=== PATIENT | male | born 1945 | race Caucasian/White ===

== ENCOUNTER 2019-03-06 21:34 | Inpatient (IN) | payer MEDICARE, OTHER ==
[~2019-03-06] VITALS: Ht 170.2 cm; Wt 84.9 kg
[2019-03-06] MEDS ORDERED: ALBUTEROL 0.083% (NEB) 2.5 MG/3 ML AMP HHN STA (21:37)
[2019-03-06] MEDS ORDERED: IPRATROPIUM (NEB) 0.5 MG/2.5 ML AMP INH ONE (22:00)
[2019-03-06] MEDS ORDERED: METHYLPREDNISOLONE 125 MG INJ IV ONE (22:00)
[2019-03-06] MEDS ORDERED: LORAZEPAM 2 MG INJ IV ONE (22:30)
[2019-03-06] MEDS: ASPIRIN 81 MG TAB PO ONE ×2 (23:16→23:45)
[2019-03-06] MEDS ORDERED: CEFTRIAXONE 1 GM/50 ML (PMX) 50 ML IVPB ONE (23:30)
[2019-03-06] MEDS ORDERED: NACL 0.9% 3 ML SYG IV SCH (23:30)
[2019-03-06] MEDS ORDERED: AZITHROMYCIN 500MG/NS (PMX) 250 ML IVPB ONE (23:30)
[2019-03-06] MEDS ORDERED: ACETAMINOPHEN 325 MG TAB PO PRN (23:30)
[2019-03-06] MEDS ORDERED: ONDANSETRON 4 MG INJ IV PRN (23:30)
--- NOTE | 2019-03-06 23:38 | ERD ---
ER Documentation Chief Complaint Chief Complaint SOB, 55% RA, COPD exacerbation HPI Patient is a 74-year-old male with COPD, hypertension, and diabetes who presents with shortness of breath. The patient was at [facility] and left AGAINST MEDICAL ADVICE last night. The patient was brought in by ambulance today for shortness of breath which started yesterday but worsened today. The patient has a history of COPD. Upon review of old medical records the patient one previous visit to the ER in 2008. The patient does have a primary doctor. The patient was hypoxic per paramedics at 55% upon arrival. He improved with oxygen and breathing treatment. ROS All systems reviewed and are negative except as per history of present illness. Allergies Allergies: Coded Allergies: No Known Allergy (Unverified , 03/06/19) PMhx/Soc Medical and Surgical Hx: pt denies Surgical Hx History of Surgery: No Anesthesia Reaction: No Hx Neurological Disorder: No Hx Respiratory Disorders: Yes (COPD) Hx Cardiac Disorders: Yes (HTN, HLD) Hx Psychiatric Problems: No Hx Miscellaneous Medical Probl: No Hx Alcohol Use: No Hx Substance Use: Yes Hx Tobacco Use: No Smoking Status: Current every day smoker FmHx Family History: diabetes Physical Exam Vitals Vital Signs Date Temp Pulse Resp B/P (MAP) Pulse Ox O2 O2 Flow FiO2 Time Delivery Rate 03/06/19 94 24 92 Nasal 2.0 21:55 Cannula 03/06/19 Non 3 21:47 Rebreather 03/06/19 Non 3.0 21:47 Rebreather 03/06/19 99.5 94 20 164/85 99 21:44 (111) Physical Exam Const: Moderate distress Head: Atraumatic Eyes: Normal Conjunctiva ENT: Normal External Ears, Nose and Mouth. Neck: Full range of motion. No meningismus. Resp: Diffuse wheezing Cardio: Regular rate and rhythm, no murmurs Abd: Soft, non tender, non distended. Normal bowel sounds Skin: No petechiae or rashes Back: No midline or flank tenderness Ext: No cyanosis, or edema Neur: Awake and alert Psych: Normal Mood and Affect Result Diagram: 03/06/19222003/06/192203 Results 24 hrs Laboratory Tests Test 03/06/19 22:01 03/06/19 22:04 03/06/19 22:21 POC Venous Lactate 1.5 mmol/L Sodium Level 140 mmol/L Potassium Level 4.8 mmol/L Chloride Level 96 mmol/L Carbon Dioxide Level 39 mmol/L Anion Gap 5 Blood Urea Nitrogen 27 mg/dl Creatinine 0.54 mg/dl Est Glomerular Filtrat Rate mL/min mL/min Glucose Level 291 mg/dl Calcium Level 8.8 mg/dl Troponin I 0.199 ng/ml White Blood Count 9.6 10^3/ul Red Blood Count 6.27 10^6/ul Hemoglobin 18.4 g/dl Hematocrit 60.4 % Mean Corpuscular Volume 96.3 fl Mean Corpuscular Hemoglobin 29.3 pg Mean Corpuscular 30.5 g/dl Hemoglobin Concent Red Cell Distribution Width 18.2 % Platelet Count 183 10^3/UL Mean Platelet Volume 10.4 fl Immature Granulocytes % 0.800 % Neutrophils % 73.7 % Lymphocytes % 16.5 % Monocytes % 6.6 % Eosinophils % 1.9 % Basophils % 0.5 % Nucleated Red Blood Cells % 0.3 /100WBC Immature Granulocytes # 0.080 10^3/ul Neutrophils # 7.1 10^3/ul Lymphocytes # 1.6 10^3/ul Monocytes # 0.6 10^3/ul Eosinophils # 0.2 10^3/ul Basophils # 0.1 10^3/ul Nucleated Red Blood Cells # 0.0 10^3/ul Current Medications Medications Dose Sig/Didi Start Time Status Last (Trade) Ordered Route PRN Stop Time Admin Dose Reason Admin 125 mg ONCE ONCE 03/06/19 DC 03/06/19 Methylprednis IV 22:00 22:06 olone Sodium 03/06/19 22:01 Succinate (Solu-Medrol) Albuterol 5 mg ONCE STAT 03/06/19 DC 03/06/19 (Proventil HHN 21:37 21:51 0.083% (Neb)) 03/06/19 21:38 Ipratropium 0.5 mg ONCE ONCE 03/06/19 DC 03/06/19 [place] INH 22:00 21:51 (Atrovent 03/06/19 22:01 0.02% (Neb)) Lorazepam 1 mg ONCE ONCE 03/06/19 DC 03/06/19 (Ativan) IV 22:30 22:27 03/06/19 22:31 Aspirin 162 mg ONCE ONCE 03/06/19 DC 03/06/19 (Aspirin) PO 23:00 23:16 03/06/19 23:01 Ceftriaxone 50 ml @ ONCE ONCE 03/06/19 Sodium 100 mls/hr IVPB 23:30 03/06/19 23:59 Azithromycin 250 ml @ ONCE ONCE 03/06/19 250 mls/hr IVPB 23:30 03/07/19 00:29 Ondansetron 4 mg ER BRIDGE 03/06/19 HCl (Zofran PRN IV 23:30 Inj) NAUSEA/VOMITI 03/07/19 23:29 NG 650 mg ER BRIDGE 03/06/19 Acetaminophen PRN PO 23:30 (Tylenol .MILD PAIN 03/07/19 23:29 Tab) 1-3 OR TEMP Procedures/MDM EKG read by me: Rate/Rhythm: Regular rate and rhythm at a normal rate Intervals: Normal Impression: No ST elevations Chest X-ray 1V Interpreted by me: Soft Tissue: No acute abnormalities Bones: No acute abnormalities Mediastinum/Cardiac Silhouette/Lungs: No obvious pneumonia or pneumothorax Smoking Cessation Therapy: Pt. was lectured for greater than 3 minutes on the health risks of continued smoking and the benefits of cessation. Patient is a 74-year-old male who presented with shortness of breath and hypoxia. The patient was given albuterol, Atrovent, Solu-Medrol, subtraction, and Zithromax for a presumed COPD exacerbation. I doubt pneumonia or sepsis. The patient was also found to have a positive troponin showing acute NSTEMI. The patient will be admitted to the care of Dr. Diop to a telemetry inpatient bed. I doubt pneumonia, pneumothorax, pulmonary embolism, or aortic dissection. Critical Care: Time: 35 minutes excluding all billable procedures. Treatments/Evaluations: Close monitoring and treatment of unstable vital signs, cardiorespiratory, and neurologic status, while maintaining tight balance of fluid, respiratory, and cardiac interventions. Departure Diagnosis: Primary Impression: NSTEMI (non-ST elevated myocardial infarction) Additional Impressions: Shortness of breath COPD exacerbation Hypoxia Condition: Serious SCOTTIE ALAS MD March 06, 2019 23:38
[2019-03-07] VITALS (48 sets, daily range): BP systolic 98–152; BP diastolic 53–84; PULSE 72–94; RESP 17–25; Ht 170.2 cm; Wt 84.9 kg
[2019-03-07] MEDS ORDERED: SYN2 PO (00:49)
[2019-03-07] MEDS ORDERED: ADV50050 INHALATION (00:49)
[2019-03-07] MEDS ORDERED: ALBU18HF INHALATION (00:49)
[2019-03-07] MEDS ORDERED: LOSA1TAB25 PO (00:49)
[2019-03-07] MEDS ORDERED: MELO15TA30 PO (00:49)
[2019-03-07] MEDS ORDERED: ASPI-817 PO (00:49)
[2019-03-07] MEDS ORDERED: AMLO-147 PO (00:49)
[2019-03-07] MEDS ORDERED: SOLI5TAB2 PO (00:49)
[2019-03-07] MEDS ORDERED: ROSU20TA30 PO (00:49)
[2019-03-07] MEDS ORDERED: METF100010 PO (00:49)
--- NOTE | 2019-03-07 00:54 | HP ---
Date/Time of Note Date/Time of Note DATE: 03/07/19 TIME: 00:53 Assessment/Plan VTE Prophylaxis SCD applied (from Nsg): Yes Pharmacological prophylaxis: NA/contraindicated Pharm contraindication: low risk/ambulating Lines/Catheters IV Catheter Type (from Nrsg): Saline Lock Assessment/Plan Hospital Course This is a 74-year male being admitted to the telemetry floor for: #1 acute on chronic COPD exacerbation: Scheduled nebulization, IV steroids, Protonix, will need to monitor closely in regards to patient's respiratory status as he was given Ativan in the emergency department and at the present time he does appear somnolent but he is maintaining his airway. Signs of clinical deterioration will need to get an ABG. Patient is also a diabetic so we will need to monitor his blood sugars closely and adjust insulin as needed #2 Hypoxia: Patient currently is requiring simple mask with 6 L and maintaining oxygenation of 90%. He is somnolent but arousable. We will need to monitor cl osely given the fact that he did receive Ativan in the ED and this could worsen his respiratory drive. If any signs of worsening will order an ABG. . #3 non-STEMI: Type I versus type II: Possibly type II in the setting of COPD exacerbation. She will troponin 0.199 will trend cardiac enzymes, will obtain an echocardiogram. Consult cardiology. #4 COPD: Continue home inhalers, treated for #1. #5 diabetes mellitus: Patient only takes oral meds at home, will check hemoglobin A1c. We will need to monitor patient's blood sugars in the setting of steroids. #6 hypertension: Resume patient's home blood pressure medications #7 DVT GI prophylaxis: SCDs, Protonix Further treatment strategy will be implemented as per the clinical course Result Diagram: 03/06/19222003/06/194 Results 24hrs Laboratory Tests Test 03/06/19 22:01 03/06/19 22:04 03/06/19 22:21 03/06/19 23:55 POC Venous Lactate 1.5 Sodium Level 140 Potassium Level 4.8 Chloride Level 96 L Carbon Dioxide Level 39 H Anion Gap 5 Blood Urea Nitrogen 27 H Creatinine 0.54 L Est Glomerular Filtrat Rate mL/min Glucose Level 291 H Calcium Level 8.8 Troponin I 0.199 *H White Blood Count 9.6 Red Blood Count 6.27 H Hemoglobin 18.4 H Hematocrit 60.4 H Mean Corpuscular 96.3 Volume Mean Corpuscular 29.3 Hemoglobin Mean Corpuscular 30.5 L Hemoglobin Concent Red Cell 18.2 H Distribution Width Platelet Count 183 Mean Platelet Volume 10.4 Immature 0.800 H Granulocytes % Neutrophils % 73.7 Lymphocytes % 16.5 Monocytes % 6.6 Eosinophils % 1.9 Basophils % 0.5 Nucleated Red Blood 0.3 H Cells % Immature 0.080 H Granulocytes # Neutrophils # 7.1 Lymphocytes # 1.6 Monocytes # 0.6 Eosinophils # 0.2 Basophils # 0.1 Nucleated Red Blood 0.0 Cells # Lactic Acid Level 1.0 HPI/ROS Admit Date/Time Admit Date/Time Hx of Present Illness Chief complaint: Shortness of breath, chest pain This is a 74-year-old male who presented with his family member with complaints of shortness of breath and chest pain. Patient was recently seen at [facility] yesterday but he left AGAINST MEDICAL ADVICE. At home he continued to have worsening shortness of breath and so he was brought here via EMS. As per the family member patient also was reporting some chest discomfort. He was also wheezing at home as per the family member. Family member reports that the patient is very anxious when he comes to the hospital and he usually does not like staying and leaves AMA so he requested in the emergency department that they gave him a medication for sedation. He did receive Ativan in the emergency department. Early on my examination the patient somnolent, but arousable he is currently saturating at 90% on 6 L simple mask. Family member states that if we try to arouse him further he will probably wake up and leave AMA so he wanted me to avoid that. Patient also has diabetes mellitus however he does not take insulin at home he only wants to take oral medications as per the family. Allergies: NKDA Medications: See MAR ROS Subjective hx not possible: other (somnolent, but arousable) PMH/Family/Social Past Medical History copd, htn, hld, hypothyroidism, diabetes mellitus Medications Current Medications Ondansetron HCl (Zofran Inj) 4 mg ER BRIDGE PRN IV NAUSEA/VOMITING; Start 03/06/19 at 23:30; Stop 03/07/19 at 23:29 Acetaminophen (Tylenol Tab) 650 mg ER BRIDGE PRN PO .MILD PAIN 1-3 OR TEMP; Start 03/06/19 at 23:30; Stop 03/07/19 at 23:29 IV Flush (NS 3 ml) 3 ml PER PROTOCOL IV ; Start 03/06/19 at 23:30 Coded Allergies: No Known Allergy (Unverified , 03/06/19) Past Surgical History Past Surgical Hx: no surgical history Family History Significant Family History: no pertinent family hx Social History Alcohol Use: none Smoking Status: Current every day smoker (2 pack/day) Drug Use: none Exam/Review of Systems Vital Signs Vitals Vital Signs Date Temp Pulse Resp B/P (MAP) Pulse Ox O2 O2 Flow FiO2 Time Delivery Rate 03/07/19 96 19 173/91 93 Mask 00:16 (118) 03/06/19 2.0 21:55 03/06/19 99.5 21:44 Exam Exam General: Somnolent but arousable, maintaining airway HEENT: Atraumatic, normocephalic. The pupils are equal, round and reactive. Extraocular motor are intact Neck: Supple with full range of motion. No rigidity or meningismus Chest: Nontender Lungs: Coarse breath sounds bilaterally, expiratory wheezing Heart: Normal S1-S2, Regular rhythm and rate. Abdomen: Soft , nontender, nondistended , bowel sounds are present. No guarding no rebound tenderness , No masses or organomegaly. No costovertebral temporal angle mass Extremities: Normal to inspection, no edema no cyanosis Neurologic: Somnolent but arousable, maintaining airway Additional Comments EKG read by me: Rate/Rhythm: Regular rate and rhythm at a normal rate Intervals: Normal Impression: No ST elevations PROCEDURE: XR Chest. CLINICAL INDICATION: SOB TECHNIQUE: Frontal chest x-ray was obtained. COMPARISON: None. FINDINGS: The cardiomediastinal silhouette is within normal limits. The lungs are clear. No signs of pleural fluid or pneumothorax are seen. The osseous structures and soft tissues are unremarkable. IMPRESSION: No evidence for active cardiopulmonary disease. .Geovani Singer MD, MD Date Time Electronically viewed and signed by .Geovani Singer MD, on 03/07/2019 04:10 .A/ CC: SCOTTIE ALAS MD [id number] DARREN JOSE March 07, 2019 00:54
[2019-03-07] MEDS ORDERED: SOD CHLORIDE 0.9% 500 ML IV ONE (01:00)
[2019-03-07] MEDS ORDERED: LOSARTAN 50 MG TAB PO ONE (01:00)
[2019-03-07] MEDS ORDERED: AMLODIPINE 10 MG TAB PO ONE (01:00)
[2019-03-07] MEDS: LEVALBUTEROL (NEB) 1.25 MG/0.5 ML AMP HHN SCH ×2 (02:32→05:56)
[2019-03-07] MEDS: IPRATROPIUM (NEB) 0.5 MG/2.5 ML AMP HHN SCH ×2 (02:32→05:56)
[2019-03-07] MEDS ORDERED: DEXTROSE 50% 50 ML SYRINGE IV PRN ×2 (03:00)
[2019-03-07] MEDS ORDERED: hydrALAzine 20 MG INJ IV PRN (03:00)
[2019-03-07] MEDS ORDERED: GLUCOSE GEL 15 GRAM TUBE BUCCAL PRN (03:00)
[2019-03-07] MEDS ORDERED: ARTIFICIAL TEARS 15 ML OPH BOTH EYES PRN (03:00)
[2019-03-07] MEDS ORDERED: GLUCOSE GEL 15 GRAM TUBE PO PRN ×2 (03:00)
[2019-03-07] MEDS ORDERED: GLUCAGON 1 MG INJ IM PRN (03:00)
[2019-03-07] MEDS ORDERED: INSULIN ASPART [NOVOLOG] 3 ML PEN SC SCH ×2 (05:00→09:00)
[2019-03-07] MEDS: LEVOTHYROXINE 100 MCG TAB PO SCH ×2 (05:24→12:08)
[2019-03-07] MEDS: NICOTINE (21 MG/24 HR) PATCH TRANSDERM SCH ×2 (05:32→09:00)
[2019-03-07] MEDS ORDERED: INSULIN ASPART [NOVOLOG] 3 ML PEN SC ONE (06:00)
[2019-03-07] MEDS ORDERED: ACCU-CHEK XX ONE (08:00)
[2019-03-07] MEDS ORDERED: INSULIN GLARGINE [LANTus] (100 UNITS/ML) SYG SC SCH (08:00)
--- NOTE | 2019-03-07 08:42 | EN ---
Date/Time of Note Date/Time of Note DATE: 03/07/19 TIME: 08:40 ER Progress Note This is a 74-year-old patient who was admitted last night for non-STEMI and COPD who was lethargic this morning. The internal medicine doctors did an ABG that showed a pH of 7 and a PCO2 of 163 yesterday move the patient to the ICU and called me for intubation. Endotracheal Intubation by me: Pre assessment performed. See preceding note for details. Pre-oxygenation performed with 100% oxygen RSI: Performed w/o complication or hypoxic events. Medications as ordered. Blade: 4 mac ET Tube: 7.5 cm Depth: 22 cm at the lip Intubation confirmed by colorimetric CO2, equal breath sounds, quiet over the stomach. ZAINAB ANTONIO DO March 07, 2019 08:42
[2019-03-07] MEDS ORDERED: NORepinephrine 8MG/250 ML (PMX 250 ML IV SCH (09:00)
[2019-03-07] MEDS ORDERED: HYDROCHLOROTHIAZIDE 25 MG TAB PO SCH (09:00)
[2019-03-07] MEDS ORDERED: ROSUVASTATIN CALCIUM 20 MG PO SCH (09:00)
[2019-03-07] MEDS ORDERED: ETOMIDATE 20 MG INJ ONE (09:00)
[2019-03-07] MEDS ORDERED: METHYLPREDNISOLONE 40 MG INJ IV SCH (09:00)
[2019-03-07] MEDS ORDERED: NON-FORMULARY/PATIENT OWN MED (Losartan-Hydrochlorothiazide (Losartan-HCTZ) 1 TAB) PO SCH (09:00)
[2019-03-07] MEDS ORDERED: VECURONIUM 10 MG VIAL ONE (09:00)
[2019-03-07] MEDS ORDERED: AMLODIPINE 10 MG TAB PO SCH (09:00)
[2019-03-07] MEDS ORDERED: ARTIFICIAL TEARS 15 ML OPH BOTH EYES SCH (09:00)
[2019-03-07] MEDS ORDERED: LOSARTAN 50 MG TAB PO SCH (09:00)
--- NOTE | 2019-03-07 09:16 | PN ---
Date/Time of Note Date/Time of Note DATE: 03/07/19 TIME: 09:03 Assessment/Plan VTE Prophylaxis SCD applied (from Nsg): Yes Pharmacological prophylaxis: heparin Lines/Catheters IV Catheter Type (from Nrsg): Saline Lock Urinary Cath still in place: No Assessment/Plan Assessment/Plan 74 yo man with uncontrolled COPD and diabetes presents in COPD exacerbation after leaving another hospital AMA. #acute COPD exacerbation: - Scheduled nebulization, IV steroids, - Patient developed hypercapnic respiratory failure after arrival. Now intubated in ICU. - Avoid all sedating medications. - Ventilator weaning per pulmonary. . # Elevated troponin: - On arrival troponin 0.199 - Patient also was complaining of chest discomfort in the setting of acute COPD exacerbation. - Will continue to trend trops. - Dr Wilson consulted. # diabetes mellitus: - Sounds like blood sugars uncontrolled at home. He is only on metformin, A1C 9.8 - Currently blood sugars 300-400. - While intubated will start insulin gtt, then transition to subQ insulin. - Anticipate sugars will be uncontrolled while on steroids also. - Hold metformin for lactic acidosis. # hypertension: Resume patient's home blood pressure medications # DVT GI prophylaxis: heparin, H2 daniel 45 minutes critical care time spent on this patient. Result Diagram: 03/07/19 0600 03/07/19 0600 Subjective 24 Hr Interval Summary Free Text/Dictation This morning around 8:05 am, rapid response called for AMS and concerning ABG results. When I arrived the patient was saturating 88% on nonrebreather facemask. Pulse 80s, BP 130/60. He was not responsive to sternal rub. Pupils were normal sized, nonreactive to light. Respirations were slow and shallow. ABG reviewed; CO2 was 160, pH 7.01, pO2 72. I was concerned about hypercarbic respiratory failure. The patient was transferred to the ICU and intubated. His son was at the bedside. I briefly updated him. Exam/Review of Systems Exam Vitals Vital Signs Date Temp Pulse Resp B/P (MAP) Pulse Ox O2 O2 Flow FiO2 Time Delivery Rate 03/07/19 89 08:25 03/07/19 98.7 138/64 88 Mask 07:45 (88) 03/07/19 8.0 06:13 03/07/19 20 05:56 Exam General: Elderly man unresponsive to sternal rub. HEENT: Atraumatic, normocephalic. The pupils are equal, nonreactive to light. Neck: Supple, no rigidity or meningismus Chest: Nontender Lungs: Coarse breath sounds bilaterally. Diminished R basilar sounds. I do not detect wheezing. Heart: Normal S1-S2, Regular rhythm and rate. Abdomen: Soft , nontender, slightly distended and tympanic. Extremities: Normal to inspection, no edema no cyanosis Neurologic: Nonresponsive to sternal rub. Nonreactive pupils. Results Results 24hrs Laboratory Tests Test 03/06/19 22:01 03/06/19 22:04 03/06/19 22:21 03/06/19 23:55 POC Venous 1.5 Lactate Sodium Level 140 Potassium Level 4.8 Chloride Level 96 L Carbon Dioxide 39 H Level Anion Gap 5 Blood Urea 27 H Nitrogen Creatinine 0.54 L Est Glomerular Filtrat Rate mL/min Glucose Level 291 H Calcium Level 8.8 Troponin I 0.199 *H White Blood Count 9.6 Red Blood Count 6.27 H Hemoglobin 18.4 H Hematocrit 60.4 H Mean Corpuscular 96.3 Volume Mean Corpuscular 29.3 Hemoglobin Mean Corpuscular 30.5 L Hemoglobin Concen t Red Cell 18.2 H Distribution Width Platelet Count 183 Mean Platelet 10.4 Volume Immature 0.800 H Granulocytes % Neutrophils % 73.7 Lymphocytes % 16.5 Monocytes % 6.6 Eosinophils % 1.9 Basophils % 0.5 Nucleated Red 0.3 H Blood Cells % Immature 0.080 H Granulocytes # Neutrophils # 7.1 Lymphocytes # 1.6 Monocytes # 0.6 Eosinophils # 0.2 Basophils # 0.1 Nucleated Red 0.0 Blood Cells # Lactic Acid Level 1.0 Test 03/07/19 01:50 03/07/19 05:36 03/07/19 06:00 03/07/19 07:00 Prothrombin Time 13.0 Prothrombin Time 1.0 Ratio INR International 0.97 Normalized Ratio Activated 27.9 Partial Thrombopl ast Time Lactic Acid Level 1.1 Creatine Kinase 54 45 Creatine Kinase 2.5 3.0 Index Creatinine Kinase 1.36 1.37 MB (Mass) Troponin I 0.223 *H 0.227 *H Bedside Glucose 447 *H White Blood Count 10.7 Red Blood Count 6.56 H Hemoglobin 19.2 H Hematocrit 65.5 H Mean Corpuscular 99.8 Volume Mean Corpuscular 29.3 Hemoglobin Mean Corpuscular 29.3 L Hemoglobin Concen t Red Cell 19.0 H Distribution Width Platelet Count 373 # Mean Platelet 9.9 Volume Immature 1.800 H Granulocytes % Neutrophils % 88.3 H Lymphocytes % 5.4 L Monocytes % 3.7 Eosinophils % 0.2 Basophils % 0.6 Nucleated Red 0.9 H Blood Cells % Immature 0.190 H Granulocytes # Neutrophils # 9.4 H Lymphocytes # 0.6 L Monocytes # 0.4 Eosinophils # 0.0 Basophils # 0.1 Nucleated Red 0.1 H Blood Cells # Sodium Level 142 Potassium Level 6.0 H Chloride Level 98 Carbon Dioxide 35 H Level Anion Gap 9 Blood Urea 35 H Nitrogen Creatinine 0.88 Est Glomerular Filtrat Rate mL/min Glucose Level 478 *H Hemoglobin A1c 9.8 H Calcium Level 8.6 Magnesium Level 2.3 Total Bilirubin 0.4 Direct Bilirubin 0.00 Indirect 0.4 Bilirubin Aspartate Amino 49 H Transf (AST/SGOT) Alanine 42 Aminotransferase (ALT/SGPT) Alkaline 82 Phosphatase Total Protein 7.8 Albumin 4.2 Globulin 3.60 H Albumin/Globulin 1.16 Ratio Thyroid 3.700 Stimulating Hormone (TSH) Blood Gas Blood arterial Specimen Source Arterial Blood 03/07/2019 7:55:4 Date Drawn 4 AM Arterial Blood pH 7.015 *L (Temp corrected) Arterial Blood 163.9 *H pCO2 (Temp correct) Arterial Blood 72.0 L pO2 (Temp corrected) Arterial Blood 40.9 *H HCO3 Arterial Blood 1.2 Base Excess Arterial Blood 90.6 L Oxygen Saturation Ivan Test ACCEPTAB Arterial Blood Left Radial Gas Puncture Site Arterial 3.7 H Blood Carboxyhemo globin Arterial Blood 0.6 Methemoglobin Blood Gas A-a O2 122.7 H Differential Oxyhemoglobin 86.7 L Percent Blood Gas 37.0 Temperature Blood Gas MASK - SIMPLE Modality FiO2 53.0 Blood Gas [id number] Critical Value Read Back Blood Gas MDA Notified Whom Blood Gas 03/07/2019 8:04:0 Notified Time 7 AM Test 03/07/19 08:08 Bedside Glucose 392 H Medications Medication Current Medications IV Flush (NS 3 ml) 3 ml PER PROTOCOL IV ; Start 03/06/19 at 23:30 Amlodipine Besylate (Norvasc) 10 mg DAILY PO ; Start 03/07/19 at 09:00 Aspirin (Halfprin) 81 mg DAILY PO ; Start 03/07/19 at 09:00 Levothyroxine Sodium (Synthroid) 200 mcg DAILY@0600 PO ; Start 03/07/19 at 06:00 Fluticasone/ Vilanterol (Breo Ellipta 200-25 Mcg Inh) 1 inh DAILY INH ; Start 03/07/19 at 09:00 Levalbuterol (Xopenex Neb) 1.25 mg Q4H RESP THERAPY HHN Last administered on 03/07/19at 05:56; Admin Dose 1.25 MG; Start 03/07/19 at 01:00 Ipratropium [place] (Atrovent 0.02% (Neb)) 0.5 mg Q4H RESP THERAPY HHN Last administered on 03/07/19at 05:56; Admin Dose 0.5 MG; Start 03/07/19 at 01:00 Atorvastatin Calcium (Lipitor) 80 mg DAILY@21 PO ; Start 03/07/19 at 21:00 Losartan Potassium (Cozaar) 100 mg DAILY PO ; Start 03/07/19 at 09:00 Hydrochlorothiazide (Hydrochlorothiazide) 25 mg DAILY PO ; Start 03/07/19 at 09:00 Hydralazine HCl (Apresoline) 10 mg Q4H PRN IV ELEVATED SYSTOLIC BP; Start 03/07/19 at 03:00 Nicotine (Nicoderm 21 Mg/ 24hr) 1 patch DAILY TRANSDERM Last administered on 03/07/19at 05:32; Admin Dose 1 PATCH; Start 03/07/19 at 03:00 Eye Lubricant (Artificial Tears Oph) 2 drop Q6H PRN BOTH EYES DRY EYES; Start 03/07/19 at 03:00 Miscellaneous Information 1 ea NOTE XX ; Start 03/07/19 at 03:00 Glucose (Glutose) 15 gm Q15M PRN PO DECREASED GLUCOSE; Start 03/07/19 at 03:00 Glucose (Glutose) 22.5 gm Q15M PRN PO DECREASED GLUCOSE; Start 03/07/19 at 03:00 Dextrose (D50w Syringe) 25 ml Q15M PRN IV DECREASED GLUCOSE; Start 03/07/19 at 03:00 Dextrose (D50w Syringe) 50 ml Q15M PRN IV DECREASED GLUCOSE; Start 03/07/19 at 03:00 Glucagon (Glucagen) 1 mg Q15M PRN IM DECREASED GLUCOSE; Start 03/07/19 at 03:00 Glucose (Glutose) 15 gm Q15M PRN BUCCAL DECREASED GLUCOSE; Start 03/07/19 at 03:00 Insulin Glargine (Lantus) 10 units DAILY@0800 SC ; Start 03/07/19 at 08:00; Status Hold Insulin Aspart (Novolog Insulin Pen) NOVOLOG *MODERATE* ALGORI... Q4 SC ; Start 03/07/19 at 09:00 Methylprednisolone Sodium Succinate (Solu-Medrol) 30 mg Q12 IV ; Start 03/07/19 at 09:00 Ceftriaxone Sodium 50 ml @ 100 mls/hr Q24H IVPB ; Start 03/07/19 at 20:00 Azithromycin 250 ml @ 250 mls/hr Q24H IVPB ; Start 03/07/19 at 20:00 Propofol 100 ml @ 2.547 mls/ hr PER PROTOCOL IV ; Start 03/07/19 at 08:30 Norepinephrine 250 ml @ 1.875 mls/ hr PER PROTOCOL IV ; Start 03/07/19 at 09:00 Diagnostic Test (Pha) (Accu-Chek) 1 ea Q1H XX ; Start 03/07/19 at 09:30; Status UNV Insulin Human Regular 100 unit/ Sodium Chloride 100 ml @ 0 mls/hr PER PROTOCOL IV ; Start 03/07/19 at 09:30; Status UNV ETHAN SALEH MD March 07, 2019 09:14
[2019-03-07] MEDS ORDERED: ACCU-CHEK XX SCH (09:30)
[2019-03-07] MEDS: PROPOFOL 100 ML IV SCH ×3 (09:56→21:18)
[2019-03-07] MEDS: INSULIN HUMAN REGULAR 100 UNIT in SOD CHLORIDE 0.9% 99 ML IV SCH (10:28)
[2019-03-07] MEDS: FLUTICASONE/VILANTEROL 200-25 INH DEVICE INH SCH (11:13)
[2019-03-07] MEDS: ACCU-CHEK XX SCH ×14 (11:15→23:04)
--- NOTE | 2019-03-07 11:27 | CONS ---
Assessment/Plan Assessment/Plan Hospital Course (Demo Recall) Acute respiratory failure with hypoxia/hypercapnia: Initially due to severe COPD exacerbation with PCO2 160 requiring intubation but CXR post intubation shows a large infiltrate which is likely due to aspiration. I do not think he has CHF at this time NSTEMI: mild trops 0.2 x 3. Trend does not suggest ACS but rather type II in setting of above. Will need cardiac eval including echo and eventually either cath or stress testing PNA: likely aspiration as not present on initial CXR. Either happened when he was altered from the hypercapnia or during intubation COPD with severe exacerbation Active tobacco abuse DM HTN -continue ASA, lipitor -hold BP Meds for now as BP marginal post intubation -check echo -discussed with Dr. Odonnell to broaden antibiotics due to likely aspiration -steroids per pulm/primary teams Consultation Date/Type/Reason Admit Date/Time Date of Consultation: March 07, 2019 Type of Consult Cardiology Reason for Consultation NSTEMI, respiratory failure Requesting Provider: DARREN JOSE Date/Time of Note DATE: 03/07/19 TIME: 11:27 Hx of Present Illness 74 yo M with a h/o DM, COPD, HTN, active 2 ppd smoker for 60 yrs per family, who presented with respiratory distress. He was found to have hypoxia and COPD exacerbation. He was started on treatment. He had been to [facility] one day prior and signed out AMA as he is "afraid of doctors" so his family had asked to sedate him to keep him from leaving. Overnight he received ativan and this am his mentation had significantly decreased. ABG showed pH 7.0 with PCO2 160s. He was emergently intubated and his ABG is improving. CXR on admission was not remarkable but post intubation shows a significant infiltrate at the right base concerning for aspiration. His family is at bedside and notes that he never gets medical follow up and he does not see his physician regularly. He continues to smoke and he downplays his symptoms. No known NH or cardiac disease. Trops here ~0.22 x 3. unable to obtain as pt intubated and sedated Past Medical History per hPI Home Meds Reported Medications Albuterol Sulfate* (Ventolin HFA*) 18 Gm Hfa.aer.ad, 2 PUFF INHALATION Q4H, #1 INHALER 03/07/19 Solifenacin* (Vesicare*) 5 Mg Tablet, 5 MG PO DAILY for 30 Days, #30 03/07/19 Metformin Hcl* (Metformin Hcl*) 1,000 Mg Tablet, 1000 MG PO BID for 30 Days, #60 03/07/19 Rosuvastatin Calcium (Rosuvastatin Calcium) 20 Mg Tablet, 20 MG PO DAILY for 30 Days, #30 03/07/19 Salmeterol Xinaf-Fluticasone* (Advair*) 500/50 Diskus Inhaler, 1 INH INHALATION BID, #1 INHALER 03/07/19 Losartan-Hydrochlorothiazide (Losartan-HCTZ) 100-25 Mg Tab, 1 TAB PO DAILY for 30 Days, #30 03/07/19 Meloxicam* (Mobic*) 15 Mg Tablet, 15 MG PO DAILY for 30 Days, #30 03/07/19 Aspirin* (Aspirin* EC) 81 Mg Tablet.dr, 81 MG PO DAILY for 30 Days, #30 03/07/19 Amlodipine Besylate* (Amlodipine Besylate*) 10 Mg Tablet, 10 MG PO DAILY for 30 Days, #30 03/07/19 Levothyroxine Sodium* (Synthroid*) 200 Mcg Tablet, 200 MCG PO QAM for 30 Days, #30 03/07/19 Medications Current Medications IV Flush (NS 3 ml) 3 ml PER PROTOCOL IV ; Start 03/06/19 at 23:30 Amlodipine Besylate (Norvasc) 10 mg DAILY PO ; Start 03/07/19 at 09:00 Aspirin (Halfprin) 81 mg DAILY PO ; Start 03/07/19 at 09:00 Levothyroxine Sodium (Synthroid) 200 mcg DAILY@0600 PO ; Start 03/07/19 at 06:00 Fluticasone/ Vilanterol (Breo Ellipta 200-25 Mcg Inh) 1 inh DAILY INH ; Start 03/07/19 at 09:00 Atorvastatin Calcium (Lipitor) 80 mg DAILY@21 PO ; Start 03/07/19 at 21:00 Losartan Potassium (Cozaar) 100 mg DAILY PO ; Start 03/07/19 at 09:00 Hydrochlorothiazide (Hydrochlorothiazide) 25 mg DAILY PO ; Start 03/07/19 at 09:00 Hydralazine HCl (Apresoline) 10 mg Q4H PRN IV ELEVATED SYSTOLIC BP; Start 03/07/19 at 03:00 Nicotine (Nicoderm 21 Mg/ 24hr) 1 patch DAILY TRANSDERM Last administered on 03/07/19at 05:32; Admin Dose 1 PATCH; Start 03/07/19 at 03:00 Eye Lubricant (Artificial Tears Oph) 2 drop Q6H PRN BOTH EYES DRY EYES; Start 03/07/19 at 03:00 Miscellaneous Information 1 ea NOTE XX ; Start 03/07/19 at 03:00 Glucose (Glutose) 15 gm Q15M PRN PO DECREASED GLUCOSE; Start 03/07/19 at 03:00 Glucose (Glutose) 22.5 gm Q15M PRN PO DECREASED GLUCOSE; Start 03/07/19 at 03:00 Dextrose (D50w Syringe) 25 ml Q15M PRN IV DECREASED GLUCOSE; Start 03/07/19 at 03:00 Dextrose (D50w Syringe) 50 ml Q15M PRN IV DECREASED GLUCOSE; Start 03/07/19 at 03:00 Glucagon (Glucagen) 1 mg Q15M PRN IM DECREASED GLUCOSE; Start 03/07/19 at 03:00 Glucose (Glutose) 15 gm Q15M PRN BUCCAL DECREASED GLUCOSE; Start 03/07/19 at 03:00 Insulin Glargine (Lantus) 10 units DAILY@0800 SC ; Start 03/07/19 at 08:00; Status Hold Insulin Aspart (Novolog Insulin Pen) NOVOLOG *MODERATE* ALGORI... Q4 SC ; Start 03/07/19 at 09:00; Status Hold Propofol 100 ml @ 2.547 mls/ hr PER PROTOCOL IV Last administered on 03/07/19at 09:56; Admin Dose 2.547 MLS/HR; Start 03/07/19 at 08:30 Norepinephrine 250 ml @ 1.875 mls/ hr PER PROTOCOL IV ; Start 03/07/19 at 09:00 Insulin Human Regular 100 unit/ Sodium Chloride 100 ml @ 0 mls/hr PER PROTOCOL IV Last administered on 03/07/19at 10:28; Admin Dose 4 MLS/HR; Start 03/07/19 at 09:30 Heparin Sodium (Porcine) (Heparin (5000 Units/1ml)) 5,000 unit Q8 SC ; Start 03/07/19 at 14:00 Famotidine (Pepcid Iv) 20 mg BID IV ; Start 03/07/19 at 09:30 Diagnostic Test (Pha) (Accu-Chek) 1 ea Q1H XX Last administered on 03/07/19at 11:15; Admin Dose 1 EA; Start 03/07/19 at 10:00 Albuterol (Ventolin Hfa) 4 puff Q4H RESP THERAPY INH ; Start 03/07/19 at 13:00 Ipratropium Loring (Atrovent Hfa) 4 puff Q4H RESP THERAPY INH ; Start 03/07/19 at 13:00 Methylprednisolone Sodium Succinate (Solu-Medrol) 40 mg Q6 IV ; Start 03/07/19 at 12:00 Piperacillin Sod/ Tazobactam Sod 100 ml @ 200 mls/hr Q6 IVPB ; Start 03/07/19 at 12:00 Allergies: Coded Allergies: No Known Allergy (Unverified , 03/06/19) Past Surgical History Past Surgical Hx: no surgical history Social History Alcohol Use: none Smoking Status: Current every day smoker (2 pack/day) Drug Use: none Exam/Review of Systems Vital Signs Vitals Vital Signs Date Temp Pulse Resp B/P (MAP) Pulse Ox O2 O2 Flow FiO2 Time Delivery Rate 03/07/19 81 110/71 92 10:15 (84) 03/07/19 19 Mechanical 10:00 Ventilator 03/07/19 99.0 08:30 03/07/19 8.0 06:13 Exam Constitutional: No alert (sedated) Head: normocephalic, atraumatic ENMT: intubated Neck: supple; No jvd Respiratory: diminished breath sounds; No clear to auscultation Cardiovascular: regular rate and rhythm; No edema, No systolic murmur Gastrointestinal: soft, non-tender, distended (mild) Musculoskeletal: No nl extremities to inspection Neurological: No nl mental status, No nl speech Labs Result Diagram: 03/07/19 0600 03/07/19 0600 Results 24hrs Laboratory Tests Test 03/06/19 22:01 03/06/19 22:04 03/06/19 22:21 03/06/19 23:55 POC Venous 1.5 Lactate Sodium Level 140 Potassium Level 4.8 Chloride Level 96 L Carbon Dioxide 39 H Level Anion Gap 5 Blood Urea 27 H Nitrogen Creatinine 0.54 L Est Glomerular Filtrat Rate mL/min Glucose Level 291 H Calcium Level 8.8 Troponin I 0.199 *H White Blood 9.6 Count Red Blood Count 6.27 H Hemoglobin 18.4 H Hematocrit 60.4 H Mean Corpuscular 96.3 Volume Mean Corpuscular 29.3 Hemoglobin Mean Corpuscular 30.5 L Hemoglobin Key nt Red Cell 18.2 H Distribution Width Platelet Count 183 Mean Platelet 10.4 Volume Immature 0.800 H Granulocytes % Neutrophils % 73.7 Lymphocytes % 16.5 Monocytes % 6.6 Eosinophils % 1.9 Basophils % 0.5 Nucleated Red 0.3 H Blood Cells % Immature 0.080 H Granulocytes # Neutrophils # 7.1 Lymphocytes # 1.6 Monocytes # 0.6 Eosinophils # 0.2 Basophils # 0.1 Nucleated Red 0.0 Blood Cells # Lactic Acid 1.0 Level Test 03/07/19 01:50 03/07/19 05:36 03/07/19 06:00 03/07/19 07:00 Prothrombin Time 13.0 Prothrombin Time 1.0 Ratio INR 0.97 International Normalized Ratio Activated 27.9 Partial Thrombop last Time Lactic Acid 1.1 Level Creatine Kinase 54 45 Creatine Kinase 2.5 3.0 Index Creatinine 1.36 1.37 Kinase MB (Mass) Troponin I 0.223 *H 0.227 *H Bedside Glucose 447 *H White Blood 10.7 Count Red Blood Count 6.56 H Hemoglobin 19.2 H Hematocrit 65.5 H Mean Corpuscular 99.8 Volume Mean Corpuscular 29.3 Hemoglobin Mean Corpuscular 29.3 L Hemoglobin Key nt Red Cell 19.0 H Distribution Width Platelet Count 373 # Mean Platelet 9.9 Volume Immature 1.800 H Granulocytes % Neutrophils % 88.3 H Lymphocytes % 5.4 L Monocytes % 3.7 Eosinophils % 0.2 Basophils % 0.6 Nucleated Red 0.9 H Blood Cells % Immature 0.190 H Granulocytes # Neutrophils # 9.4 H Lymphocytes # 0.6 L Monocytes # 0.4 Eosinophils # 0.0 Basophils # 0.1 Nucleated Red 0.1 H Blood Cells # Sodium Level 142 Potassium Level 6.0 H Chloride Level 98 Carbon Dioxide 35 H Level Anion Gap 9 Blood Urea 35 H Nitrogen Creatinine 0.88 Est Glomerular Filtrat Rate mL/min Glucose Level 478 *H Hemoglobin A1c 9.8 H Calcium Level 8.6 Magnesium Level 2.3 Total Bilirubin 0.4 Direct Bilirubin 0.00 Indirect 0.4 Bilirubin Aspartate Amino 49 H Transf (AST/SGOT ) Alanine 42 Aminotransferase (ALT/SGPT) Alkaline 82 Phosphatase Total Protein 7.8 Albumin 4.2 Globulin 3.60 H Albumin/Globulin 1.16 Ratio Thyroid 3.700 Stimulating Hormone (TSH) Blood Gas Blood arterial Specimen Source Arterial Blood 03/07/2019 7:55: Date Drawn 44 AM Arterial Blood 7.015 *L pH (Temp corrected) Arterial Blood 163.9 *H pCO2 (Temp correct) Arterial Blood 72.0 L pO2 (Temp corrected) Arterial Blood 40.9 *H HCO3 Arterial Blood 1.2 Base Excess Arterial Blood 90.6 L Oxygen Saturatio n Ivan Test ACCEPTAB Arterial Blood Left Radial Gas Puncture Site Arterial 3.7 H Blood Carboxyhem oglobin Arterial Blood 0.6 Methemoglobin Blood Gas A-a O2 122.7 H Differential Oxyhemoglobin 86.7 L Percent Blood Gas 37.0 Temperature Blood Gas MASK - SIMPLE Modality FiO2 53.0 Blood Gas [id number] Critical Value Read Back Blood Gas MDA Notified Whom Blood Gas 03/07/2019 8:04: Notified Time 07 AM Test 03/07/19 08:08 03/07/19 10:01 03/07/19 10:17 03/07/19 11:04 Bedside Glucose 392 H 359 H 338 H Blood Gas Blood arterial Specimen Source Arterial Blood 03/07/2019 10:12 Date Drawn :33 AM Arterial Blood 7.198 *L pH (Temp corrected) Arterial Blood 93.1 *H pCO2 (Temp correct) Arterial Blood 72.5 L pO2 (Temp corrected) Arterial Blood 35.4 H HCO3 Arterial Blood 2.3 Base Excess Arterial Blood 93.8 L Oxygen Saturatio n Ivan Test ACCEPTAB Arterial Blood Right Radial Gas Puncture Site Arterial 2.2 Blood Carboxyhem oglobin Arterial Blood 0.6 Methemoglobin Blood Gas A-a O2 547.4 H Differential Oxyhemoglobin 91.2 L Percent Blood Gas 37.0 Temperature Blood Gas 18.0 Respiration Rate Blood Gas Actual 18 Respiration Rate Blood Gas VENT - AC Modality FiO2 100.0 Blood Gas Tidal 550.0 Volume Blood Gas Shaw Guerra RN Critical Value Read Back Blood Gas ROBER Vaz Notified Whom Blood Gas 03/07/2019 10:23 Notified Time :53 AM Medications Medications Current Medications IV Flush (NS 3 ml) 3 ml PER PROTOCOL IV ; Start 03/06/19 at 23:30 Amlodipine Besylate (Norvasc) 10 mg DAILY PO ; Start 03/07/19 at 09:00 Aspirin (Halfprin) 81 mg DAILY PO ; Start 03/07/19 at 09:00 Levothyroxine Sodium (Synthroid) 200 mcg DAILY@0600 PO ; Start 03/07/19 at 06:00 Fluticasone/ Vilanterol (Breo Ellipta 200-25 Mcg Inh) 1 inh DAILY INH ; Start 03/07/19 at 09:00 Atorvastatin Calcium (Lipitor) 80 mg DAILY@21 PO ; Start 03/07/19 at 21:00 Losartan Potassium (Cozaar) 100 mg DAILY PO ; Start 03/07/19 at 09:00 Hydrochlorothiazide (Hydrochlorothiazide) 25 mg DAILY PO ; Start 03/07/19 at 09:00 Hydralazine HCl (Apresoline) 10 mg Q4H PRN IV ELEVATED SYSTOLIC BP; Start 03/07/19 at 03:00 Nicotine (Nicoderm 21 Mg/ 24hr) 1 patch DAILY TRANSDERM Last administered on 03/07/19at 05:32; Admin Dose 1 PATCH; Start 03/07/19 at 03:00 Eye Lubricant (Artificial Tears Oph) 2 drop Q6H PRN BOTH EYES DRY EYES; Start 03/07/19 at 03:00 Miscellaneous Information 1 ea NOTE XX ; Start 03/07/19 at 03:00 Glucose (Glutose) 15 gm Q15M PRN PO DECREASED GLUCOSE; Start 03/07/19 at 03:00 Glucose (Glutose) 22.5 gm Q15M PRN PO DECREASED GLUCOSE; Start 03/07/19 at 03:00 Dextrose (D50w Syringe) 25 ml Q15M PRN IV DECREASED GLUCOSE; Start 03/07/19 at 03:00 Dextrose (D50w Syringe) 50 ml Q15M PRN IV DECREASED GLUCOSE; Start 03/07/19 at 03:00 Glucagon (Glucagen) 1 mg Q15M PRN IM DECREASED GLUCOSE; Start 03/07/19 at 03:00 Glucose (Glutose) 15 gm Q15M PRN BUCCAL DECREASED GLUCOSE; Start 03/07/19 at 03:00 Insulin Glargine (Lantus) 10 units DAILY@0800 SC ; Start 03/07/19 at 08:00; Status Hold Insulin Aspart (Novolog Insulin Pen) NOVOLOG *MODERATE* ALGORI... Q4 SC ; Start 03/07/19 at 09:00; Status Hold Propofol 100 ml @ 2.547 mls/ hr PER PROTOCOL IV Last administered on 03/07/19at 09:56; Admin Dose 2.547 MLS/HR; Start 03/07/19 at 08:30 Norepinephrine 250 ml @ 1.875 mls/ hr PER PROTOCOL IV ; Start 03/07/19 at 09:00 Insulin Human Regular 100 unit/ Sodium Chloride 100 ml @ 0 mls/hr PER PROTOCOL IV Last administered on 03/07/19at 10:28; Admin Dose 4 MLS/HR; Start 03/07/19 at 09:30 Heparin Sodium (Porcine) (Heparin (5000 Units/1ml)) 5,000 unit Q8 SC ; Start 03/07/19 at 14:00 Famotidine (Pepcid Iv) 20 mg BID IV ; Start 03/07/19 at 09:30 Diagnostic Test (Pha) (Accu-Chek) 1 ea Q1H XX Last administered on 03/07/19at 11:15; Admin Dose 1 EA; Start 03/07/19 at 10:00 Albuterol (Ventolin Hfa) 4 puff Q4H RESP THERAPY INH ; Start 03/07/19 at 13:00 Ipratropium Loring (Atrovent Hfa) 4 puff Q4H RESP THERAPY INH ; Start 03/07/19 at 13:00 Methylprednisolone Sodium Succinate (Solu-Medrol) 40 mg Q6 IV ; Start 03/07/19 at 12:00 Piperacillin Sod/ Tazobactam Sod 100 ml @ 200 mls/hr Q6 IVPB ; Start 03/07/19 at 12:00 RADU VIVAS March 07, 2019 11:27
[2019-03-07] MEDS: FAMOTIDINE 20 MG INJ IV SCH ×2 (11:51→21:18)
[2019-03-07] MEDS: PIPER-TAZO 3.375 GM IV (PMX) 100 ML IVPB SCH ×2 (11:51→18:25)
[2019-03-07] MEDS: METHYLPREDNISOLONE 40 MG INJ IV SCH ×2 (11:51→18:26)
[2019-03-07] MEDS: ASPIRIN (EC) 81 MG TAB PO SCH (11:55)
--- NOTE | 2019-03-07 11:55 | CONS ---
DATE OF ADMISSION: 03/06/2019 DATE OF CONSULTATION: 03/07/2019 REASON FOR CONSULT: Respiratory failure. Thank you, Dr. Diop, for this consultation. HISTORY OF PRESENT ILLNESS: This is a 74-year-old gentleman with longstanding history of COPD, prese nted with several-day history of increasing shortness of breath, chest congestion, was seen at [facility], found to have evidence of non-ST elevation ID. The patient left against medica l advice, presented here with worsening shortness of breath and dense right-sided pneumonia. This mo rning had severe distress requiring intubation and mechanical ventilation. PAST MEDICAL HISTORY: COPD, diabetes mellitus, hypertension and hypothyroidism. MEDICATIONS: Per chart. ALLERGIES: NONE. SOCIAL HISTORY: He is a current smoker, 2 packs per day. Alcohol unknown, drug history unlikely. PHYSICAL EXAMINATION: GENERAL: Well-nourished, well-developed gentleman, comfortable at rest, no acute distress. VITAL SIGNS: Currently afebrile, pulse is 90, blood pressure 110/70, O2 saturation 96% on 2 liters. NECK: Supple. No JVD or lymphadenopathy. CARDIAC: S1, S2, no added sounds or murmurs. CHEST: Diminished air entry bilaterally. ABDOMEN: Soft, nontender. No guarding or rebound. EXTREMITIES: No cyanosis, clubbing, edema. NEUROLOGIC: Grossly intact. No focal deficits. LABORATORY DATA: White count 10.7, hemoglobin 19.2, platelets of 373. Chemistry: BUN 35, creatinin e 0.88. Potassium was initially 6, glucose 478. Troponin 0.227. ABG on admission pH 7.05, now 7.19 , initial pCO2 was 167. IMPRESSION: 1. Acute hypoxemic and hypercapnic respiratory failure, likely secondary to community-acquired pneum onia with chronic obstructive pulmonary disease exacerbation. 2. Non-ST elevation myocardial infarction, possibly type 2. 3. Underlying history of hypertension. 4. Extensive ongoing tobacco history with chronic obstructive pulmonary disease. PLAN: 1. Continue antibiotics. 2. Sputum studies. 3. Steroid taper. 4. Bronchodilators. 5. Cardiology recommendations. 6. DVT and GI prophylaxis. Dictated By: JOSÉ ANTONIO STANFORD/CIRAA Conf#: [id number] DID#: [id number] CC: DARREN DIOP MD;*End*
--- NOTE | 2019-03-07 12:28 | RADRPT ---
Echocardiogram Report Patient Name: Arley MALDONADO ID: [id number] : 1945 (74y 1m)Study Date: 03/07/2019 9:49:51 AM Gender: MAccession #: [id number] Tech: Kannan Tejada [facility] Location: [address] Ref.Physician: DARREN JOSE Height(Cm): BSA: Weight(Kg): Quality: Technically Difficult StudyOrder Physician: DARREN JOSE Account #: Procedures: Echocardiographic Report: Transthoracic echocardiogram with complete 2D, M-Mode, and doppler examination. Indications: Chest Pain, NSTEMI. Measurements: 2D/M Mode Doppler Measurement Value Normal Range Measurement Value Normal Range LVIDd 2D 4.7 [ 4.2 - 5.8 ] cm AV Peak Dhruv 1.3 [ 100.0 - 170.0 ] cm/sec LVIDs 2D 3.2 [ 2.5 - 4.0 ] cm AV Peak PG 7.0 [ 2.0 - 9.0 ] mmHg LVPWd 2D 1.0 [ 0.6 - 1.0 ] cm LVOT Peak Dhruv 1.0 [ 70.0 - 110.0 ] cm/sec IVSd 2D 1.1 [ 0.6 - 1.0 ] cm LVOT Peak PG 4.0 [ 2.0 - 6.0 ] mmHg AoR Diam 2D 2.8 [ 2.6 - 3.4 ] cm MV E Peak Dhruv 0.6 [ 60.0 - 130.0 ] cm/sec EDV 2D 104.0 [ 62.0 - 150.0 ] ml MV A Peak Dhruv 0.9 [ 100.0 - 120.0 ] cm/sec ESV 2D 39.7 [ 21.0 - 61.0 ] ml MV E/A 0.7 [ 0.8 - 1.5 ] ratio EF 2D 61.8 [ 52.0 - 72.0 ] percent MV Decel Time 236 [ 104 - 258 ] msec LA Dimen 2D 3.3 [ 3.0 - 4.0 ] cm Lat E` Dhruv 0.1 [ 10.0 - 15.0 ] cm/sec Lateral E/E` 7.3 [ 1.0 - 2.0 ] ratio MV E/A 0.7 [ 0.8 - 1.5 ] ratio TR Peak Dhruv 2.0 [ 100.0 - 280.0 ] cm/sec TR Peak PG 16.0 mmHg RVSP 24.0 [ 10.0 - 36.0 ] mmHg Findings: Left Ventricle: Overall, normal left ventricular systolic function. Not all segments visualized. Normal left ventricular cavity size. Normal left ventricular wall thickness. Ejection fraction is visually estimated at 60 %. Tissue Doppler/Mitral Doppler indices are consistent with impaired relaxation (Stage I diastolic dysfunction). Right Ventricle: Normal right ventricular size. Normal right ventricular systolic function. Left Atrium: There is mild enlargement of left atrium. Right Atrium: The right atrium is normal in size. Mitral Valve: Mitral valve is not well visualized. Trace mitral regurgitation. Aortic Valve: Aortic valve not well visualized. No aortic regurgitation. Tricuspid Valve: Tricuspid valve not well visualized. Estimated peak PA systolic pressure 24 mmHg. There is trace tricuspid regurgitation. Pericardium: Normal pericardium with no significant pericardial effusion. Aorta: Not well visualized. IVC: Inferior vena cava without respiratory collapse, however, patient on ventilator. Conclusions: Technically difficult study with poor endocardial visualization. Overall, normal left ventricular systolic function. Not all segments visualized. Normal left ventricular cavity size. Normal left ventricular wall thickness. Ejection fraction is visually estimated at 60 %. Tissue Doppler/Mitral Doppler indices are consistent with impaired relaxation (Stage I diastolic dysfunction). No significant valvular stenosis or regurgitation seen. Estimated peak PA systolic pressure 24 mmHg. Inferior vena cava without respiratory collapse, however, patient on ventilator. Electronically Signed By: Ra Wilson 2019-03-07 12:27:21 PDT
[2019-03-07] MEDS: ALBUTEROL HFA 8 GM INHALER INH SCH ×3 (13:13→21:13)
[2019-03-07] MEDS: IPRATROPIUM (HFA) 12.9 GM INHALER INH SCH ×3 (13:13→21:13)
--- NOTE | 2019-03-07 14:25 | RADRPT ---
Vent Rate: 94 bpm RR Interval: 0 msec WA Interval: 134 msec QRS Duration: 100 msec QT Interval: 346 msec QTC Interval: 432 msec P-R-T [place]: 61 - 92 - 60 degrees Normal sinus rhythm Possible Left atrial enlargement Rightward axis Borderline ECG Electronically Signed By: [facility]
[2019-03-07] MEDS: HEPARIN 5,000 UNIT/1 ML VIAL SC SCH ×2 (14:29→21:21)
[2019-03-07] MEDS ORDERED: LIDOCAINE 1% (MPF) 5 ML VIAL SC ONE (15:00)
[2019-03-07] MEDS: NPH, HUMAN INSULIN ISOPHANE 3ML VIAL SC SCH (18:28)
[2019-03-07] MEDS ORDERED: CEFTRIAXONE 1 GM/50 ML (PMX) 50 ML IVPB SCH (20:00)
[2019-03-07] MEDS ORDERED: AZITHROMYCIN 500MG/NS (PMX) 250 ML IVPB SCH (20:00)
[2019-03-07] MEDS: ATORVASTATIN 80 MG TAB PO SCH (21:18)
[2019-03-07] MEDS: SOD CHLORIDE 0.9% 1,000 ML IV SCH (23:03)
[2019-03-08] VITALS (55 sets, daily range): BP systolic 96–146; BP diastolic 56–110; PULSE 58–78; RESP 17–24
[2019-03-08] MEDS: PIPER-TAZO 3.375 GM IV (PMX) 100 ML IVPB SCH ×4 (00:06→18:00)
[2019-03-08] MEDS: ACCU-CHEK XX SCH ×24 (00:06→23:00)
[2019-03-08] MEDS: NPH, HUMAN INSULIN ISOPHANE 3ML VIAL SC SCH ×4 (00:38→19:10)
[2019-03-08] MEDS: METHYLPREDNISOLONE 40 MG INJ IV SCH ×4 (00:39→18:00)
[2019-03-08] MEDS: IPRATROPIUM (HFA) 12.9 GM INHALER INH SCH ×6 (01:05→21:01)
[2019-03-08] MEDS: ALBUTEROL HFA 8 GM INHALER INH SCH ×6 (01:05→21:01)
[2019-03-08] MEDS: PROPOFOL 100 ML IV SCH ×5 (04:03→20:22)
[2019-03-08] MEDS: HEPARIN 5,000 UNIT/1 ML VIAL SC SCH ×3 (06:06→21:24)
--- NOTE | 2019-03-08 09:25 | CONS ---
Consult Date/Type/Reason Admit Date/Time March 06, 2019 at 23:13 Initial Consult Date 03/07/19 Type of Consult Pulmonary Requesting Provider: DARREN JOSE Date/Time of Note DATE: 03/08/19 TIME: 09:23 Subjective Patient remains intubated on mechanical ventilation FiO2 75%. Appears comfortable at present. Chest x-ray demonstrates dense right lower lobe infil trate Objective Vital Signs Date Temp Pulse Resp B/P (MAP) Pulse Ox O2 O2 Flow FiO2 Time Delivery Rate 03/08/19 64 24 109/65 99 08:30 (80) 03/08/19 97.9 Mechanical 08:00 Ventilator 03/08/19 75 05:05 03/07/19 15.0 08:00 Intake and Output 03/07/19 03/07/19 03/08/19 1515:00 23:00 07:00 IntakeIntake Total 989.15 ml 260.282 ml 889.658 ml OutputOutput Total 525 ml 325 ml 210 ml BalanceBalance 464.15 ml -64.718 ml 679.658 ml Exam PHYSICAL EXAMINATION: GENERAL: Well-nourished, well-developed gentleman, comfortable at rest, no acute distress. VITAL SIGNS: NECK: Supple. No JVD or lymphadenopathy. CARDIAC: S1, S2, no added sounds or murmurs. CHEST: Diminished air entry bilaterally. ABDOMEN: Soft, nontender. No guarding or rebound. EXTREMITIES: No cyanosis, clubbing, edema. NEUROLOGIC: Grossly intact. No focal deficits. Vent Setting Ventilator Support Mode: AC Fraction of Inspired Oxygen pe: 75 Positive End Expiratory Pressu: 5.0 Results/Medications Result Diagram: 03/08/19 0454 03/08/19 0454 Results 24 hrs Laboratory Tests Test 03/07/19 10:01 03/07/19 10:17 03/07/19 11:04 03/07/19 12:08 Bedside Glucose 359 H 338 H 306 H Blood Gas Blood arterial Specimen Source Arterial Blood 03/07/2019 10:12: Date Drawn 33 AM Arterial Blood pH 7.198 *L (Temp corrected) Arterial Blood 93.1 *H pCO2 (Temp correct) Arterial Blood 72.5 L pO2 (Temp corrected) Arterial Blood 35.4 H HCO3 Arterial Blood 2.3 Base Excess Arterial Blood 93.8 L Oxygen Saturation Ivan Test ACCEPTAB Arterial Blood Right Radial Gas Puncture Site Arterial 2.2 Blood Carboxyhemo globin Arterial Blood 0.6 Methemoglobin Blood Gas A-a O2 547.4 H Differential Oxyhemoglobin 91.2 L Percent Blood Gas 37.0 Temperature Blood Gas 18.0 Respiration Rate Blood Gas Actual 18 Respiration Rate Blood Gas VENT - AC Modality FiO2 100.0 Blood Gas Tidal 550.0 Volume Blood Gas Shaw Guerra RN Critical Value Read Back Blood Gas [employer] Notified Whom Blood Gas 03/07/2019 10:23: Notified Time 53 AM Test 03/07/19 13:10 03/07/19 14:00 03/07/19 14:15 03/07/19 14:22 Bedside Glucose 267 H 252 H Blood Gas Blood arterial Specimen Source Arterial Blood 03/07/2019 2:10:1 Date Drawn 8 PM Arterial Blood pH 7.379 (Temp corrected) Arterial Blood 60.2 H pCO2 (Temp correct) Arterial Blood 86.5 pO2 (Temp corrected) Arterial Blood 34.7 H HCO3 Arterial Blood 6.7 H Base Excess Arterial Blood 97.1 Oxygen Saturation Ivan Test ACCEPTAB Arterial Blood Right Radial Gas Puncture Site Arterial 1.1 Blood Carboxyhemo globin Arterial Blood 0.5 Methemoglobin Blood Gas A-a O2 566.3 H Differential Oxyhemoglobin 95.5 Percent Blood Gas 37.0 Temperature Blood Gas 24.0 Respiration Rate Blood Gas Actual 24 Respiration Rate Blood Gas VENT - AC Modality FiO2 100.0 Blood Gas Tidal 550.0 Volume Blood Gas [place] Notified Whom Blood Gas 03/07/2019 2:19:1 Notified Time 9 PM Sodium Level 143 Potassium Level 4.5 Chloride Level 101 Carbon Dioxide 34 H Level Anion Gap 8 Blood Urea 39 H Nitrogen Creatinine 0.79 Est Glomerular Filtrat Rate mL/min Glucose Level 293 #H Calcium Level 8.3 L Test 03/07/19 15:30 03/07/19 16:43 03/07/19 17:04 03/07/19 18:07 Bedside Glucose 221 H 201 186 White Blood Count 9.8 Red Blood Count 6.19 H Hemoglobin 17.9 Hematocrit 59.1 H Mean Corpuscular 95.5 Volume Mean Corpuscular 28.9 L Hemoglobin Mean Corpuscular 30.3 L Hemoglobin Concen t Red Cell 18.0 H Distribution Width Platelet Count 259 # Mean Platelet 9.8 Volume Immature 0.600 H Granulocytes % Neutrophils % 87.4 H Lymphocytes % 5.6 L Monocytes % 6.2 Eosinophils % 0.0 Basophils % 0.2 Nucleated Red 0.4 H Blood Cells % Immature 0.060 H Granulocytes # Neutrophils # 8.6 H Lymphocytes # 0.6 L Monocytes # 0.6 Eosinophils # 0.0 Basophils # 0.0 Nucleated Red 0.0 Blood Cells # Thyroid 5.010 H Stimulating Hormone (TSH) Free Thyroxine 1.39 Free 2.77 Triiodothyronine (T3) pg/mL Hepatitis A POSITIVE H Antibody Total Hepatitis B NEGATIVE Surface Antigen Hepatitis C NEGATIVE Antibody Test 03/07/19 19:54 03/07/19 21:20 03/07/19 23:06 03/08/19 00:31 Bedside Glucose 189 189 158 140 Test 03/08/19 02:15 03/08/19 04:12 03/08/19 04:54 03/08/19 06:08 Bedside Glucose 152 124 129 White Blood Count 8.6 Red Blood Count 5.81 Hemoglobin 16.9 Hematocrit 54.8 H Mean Corpuscular 94.3 Volume Mean Corpuscular 29.1 Hemoglobin Mean Corpuscular 30.8 L Hemoglobin Concen t Red Cell 17.9 H Distribution Width Platelet Count 268 Mean Platelet 10.4 Volume Immature 0.500 H Granulocytes % Neutrophils % 87.7 H Lymphocytes % 6.7 L Monocytes % 5.0 Eosinophils % 0.0 Basophils % 0.1 Nucleated Red 0.2 H Blood Cells % Immature 0.040 H Granulocytes # Neutrophils # 7.5 Lymphocytes # 0.6 L Monocytes # 0.4 Eosinophils # 0.0 Basophils # 0.0 Nucleated Red 0.0 Blood Cells # Sodium Level 143 Potassium Level 4.0 Chloride Level 104 Carbon Dioxide 36 H Level Anion Gap 3 L Blood Urea 41 H Nitrogen Creatinine 0.90 Est Glomerular Filtrat Rate mL/min Glucose Level 141 # Calcium Level 8.4 Phosphorus Level 2.7 Magnesium Level 2.3 Total Bilirubin 0.5 Direct Bilirubin 0.00 Indirect 0.5 Bilirubin Aspartate Amino 26 Transf (AST/SGOT) Alanine 32 Aminotransferase (ALT/SGPT) Alkaline 56 Phosphatase Total Protein 6.0 #L Albumin 3.2 #L Globulin 2.80 Albumin/Globulin 1.14 Ratio Test 03/08/19 08:06 Bedside Glucose 139 Medications Current Medications IV Flush (NS 3 ml) 3 ml PER PROTOCOL IV ; Start 03/06/19 at 23:30 Aspirin (Halfprin) 81 mg DAILY PO Last administered on 03/07/19at 11:55; Admin Dose 81 MG; Start 03/07/19 at 09:00 Levothyroxine Sodium (Synthroid) 200 mcg DAILY@0600 PO Last administered on 03/07/19at 12:08; Admin Dose 200 MCG; Start 03/07/19 at 06:00 Fluticasone/ Vilanterol (Breo Ellipta 200-25 Mcg Inh) 1 inh DAILY INH ; Start 03/07/19 at 09:00 Atorvastatin Calcium (Lipitor) 80 mg DAILY@21 PO Last administered on 03/07/19at 21:18; Admin Dose 80 MG; Start 03/07/19 at 21:00 Hydralazine HCl (Apresoline) 10 mg Q4H PRN IV ELEVATED SYSTOLIC BP; Start 03/07/19 at 03:00 Nicotine (Nicoderm 21 Mg/ 24hr) 1 patch DAILY TRANSDERM Last administered on 03/07/19at 05:32; Admin Dose 1 PATCH; Start 03/07/19 at 03:00 Eye Lubricant (Artificial Tears Oph) 2 drop Q6H PRN BOTH EYES DRY EYES; Start 03/07/19 at 03:00 Miscellaneous Information 1 ea NOTE XX ; Start 03/07/19 at 03:00 Glucose (Glutose) 15 gm Q15M PRN PO DECREASED GLUCOSE; Start 03/07/19 at 03:00 Glucose (Glutose) 22.5 gm Q15M PRN PO DECREASED GLUCOSE; Start 03/07/19 at 03:00 Dextrose (D50w Syringe) 25 ml Q15M PRN IV DECREASED GLUCOSE; Start 03/07/19 at 03:00 Dextrose (D50w Syringe) 50 ml Q15M PRN IV DECREASED GLUCOSE; Start 03/07/19 at 03:00 Glucagon (Glucagen) 1 mg Q15M PRN IM DECREASED GLUCOSE; Start 03/07/19 at 03:00 Glucose (Glutose) 15 gm Q15M PRN BUCCAL DECREASED GLUCOSE; Start 03/07/19 at 03:00 Insulin Glargine (Lantus) 10 units DAILY@0800 SC ; Start 03/07/19 at 08:00; Status Hold Insulin Aspart (Novolog Insulin Pen) NOVOLOG *MODERATE* ALGORI... Q4 SC ; Start 03/07/19 at 09:00; Status Hold Propofol 100 ml @ 2.547 mls/ hr PER PROTOCOL IV Last administered on 03/08/19 04:03; Admin Dose 25.47 MLS/HR; Start 03/07/19 at 08:30 Norepinephrine 250 ml @ 1.875 mls/ hr PER PROTOCOL IV ; Start 03/07/19 at 09:00 Insulin Human Regular 100 unit/ Sodium Chloride 100 ml @ 0 mls/hr PER PROTOCOL IV Last administered on 03/07/19 10:28; Admin Dose 4 MLS/HR; Start 03/07/19 at 09:30 Heparin Sodium (Porcine) (Heparin (5000 Units/1ml)) 5,000 unit Q8 SC Last administered on 03/08/19 06:06; Admin Dose 5,000 UNIT; Start 03/07/19 at 14:00 Famotidine (Pepcid Iv) 20 mg BID IV Last administered on 03/07/19 21:18; Admin Dose 20 MG; Start 03/07/19 at 09:30 Diagnostic Test (Pha) (Accu-Chek) 1 ea Q1H XX Last administered on 03/08/19 08:23; Admin Dose 1 EA; Start 03/07/19 at 10:00 Albuterol (Ventolin Hfa) 4 puff Q4H RESP THERAPY INH Last administered on 03/08/19 08:54; Admin Dose 4 PUFF; Start 03/07/19 at 13:00 Ipratropium Stanton (Atrovent Hfa) 4 puff Q4H RESP THERAPY INH Last administered on 03/08/19 08:54; Admin Dose 4 PUFF; Start 03/07/19 at 13:00 Methylprednisolone Sodium Succinate (Solu-Medrol) 40 mg Q6 IV Last administered on 03/08/19 06:04; Admin Dose 40 MG; Start 03/07/19 at 12:00 Piperacillin Sod/ Tazobactam Sod 100 ml @ 200 mls/hr Q6 IVPB Last administered on 03/08/19 06:01; Admin Dose 200 MLS/HR; Start 03/07/19 at 12:00 Insulin Human NPH (Humulin N) 6 unit Q6 SC Last administered on 5/18/19at 06:06; Admin Dose 6 UNIT; Start 03/07/19 at 18:00 Sodium Chloride 1,000 ml @ 80 mls/hr [id number] IV Last administered on 03/07/19at 23:03; Admin Dose 80 MLS/HR; Start 03/07/19 at 22:00 Assessment/Plan Hospital Course (Demo Recall) IMPRESSION: 1. Acute hypoxemic and hypercapnic respiratory failure, probable aspiration pneumonia during intubation for COPD exacerbation. 2. Non-ST elevation myocardial infarction, possibly type 2. 3. Underlying history of hypertension. 4. Extensive ongoing tobacco history with chronic obstructive pulmonary disea se. Chronic hypercapnic respiratory failure PLAN: 1. Continue antibiotics. 2. Sputum studies. 3. Steroid taper. 4. Bronchodilators. 5. Cardiology recommendations. 6. DVT and GI prophylaxis. Long discussion with son at bedside. Explained we need to continue supportive measures currently not stable for weaning trials. Critical care time 40 minutes. JOSÉ ANTONIO LOJA MD, [facility] March 08, 2019 09:25
[2019-03-08] MEDS: FAMOTIDINE 20 MG INJ IV SCH ×2 (09:33→21:16)
[2019-03-08] MEDS: NICOTINE (21 MG/24 HR) PATCH TRANSDERM SCH (09:33)
[2019-03-08] MEDS: ASPIRIN (EC) 81 MG TAB PO SCH (09:33)
--- NOTE | 2019-03-08 10:26 | CONS ---
Assessment/Plan Assessment/Plan Problems: (1) Acute hypercapnic respiratory failure Onset Date: ~ 03/06/2019 Status: Acute Comment: Remains on ventilator but appears to be improving. Please note he has chronic hypercapnic hypoxemic respiratory failure due to COPD and tobacco abuse history. (2) Right lower lobe pneumonia Status: Acute Comment: On aggressive antibiotic therapy at this time. Qualifiers: Qualified Codes: J69.0 - Pneumonitis due to inhalation of food and vomit (3) Diabetes mellitus type 2 in nonobese Status: Chronic Comment: He is receiving NPH insulin simultaneously with a steroid administration to help smooth out the spikes from that. He is also on insulin drip for this status. He will be starting on tube feedings. Please note I would use the [facility] pulmonary here as opposed to a diabetic source as his pulmo nary status is far more fragile than his glucose metabolism. (4) COPD with acute exacerbation Status: Chronic Comment: As per pulmonary. Maximize therapy although the family reports that he has multiple times discontinued on his own the medications at home. (5) Essential hypertension Status: Chronic Comment: Adequate adequate control at this time (6) Grade I diastolic dysfunction Status: Chronic Comment: Noted. (7) Secondary polycythemia Status: Chronic Comment: This is undoubtedly due to his COPD and chronic hypoxemia. This is a significant issue but fortunately with the amount of blood withdrawn from him his blood counts have come down so he is not dealing with excess viscosity. (8) Tobacco abuse Status: Chronic Comment: The family informs that he has been counseled in this multiple times. Presently is not awake to be counseled again but we will keep trying Consultation Date/Type/Reason Admit Date/Time March 06, 2019 at 23:13 Date of Consultation: March 07, 2019 Type of Consult Endocrinology Reason for Consultation Diabetes mellitus type 2 with inadequate control; advanced stage COPD; right lower lobe pneumonia; medical noncompliance; Requesting Provider: ETHAN SALEH MD Date/Time of Note DATE: 03/08/19 TIME: 10:19 Hx of Present Illness 74-year-old [place] male brought in through the emergency room. He had been seen yesterday the day before admission at [facility] for respiratory issues. He signed out AGAINST MEDICAL ADVICE after breathing t reatment was brought in with near respiratory failure. He shortly after arrival did have formalized respiratory failure requiring intubation. He is being treated with steroids for his COPD, which is aggravating his already out of control sugars. Please note that I wrote initial orders on the and I am dictating this on the . Subjective hx not possible: pt non-verbal, pt critical status Past Medical History Medical History: congestive heart failure (Diastolic dysfunction), diabetes (Type II), high cholesterol, hypertension, hypothyroid, other (End-stage COPD with chronic hypercapnic respiratory failure and hypoxemia; tobacco abuse; medical noncooperation) Home Meds Reported Medications Albuterol Sulfate* (Ventolin HFA*) 18 Gm Hfa.aer.ad, 2 PUFF INHALATION Q4H, #1 INHALER 03/07/19 Solifenacin* (Vesicare*) 5 Mg Tablet, 5 MG PO DAILY for 30 Days, #30 03/07/19 Metformin Hcl* (Metformin Hcl*) 1,000 Mg Tablet, 1000 MG PO BID for 30 Days, #60 03/07/19 Rosuvastatin Calcium (Rosuvastatin Calcium) 20 Mg Tablet, 20 MG PO DAILY for 30 Days, #30 03/07/19 Salmeterol Xinaf-Fluticasone* (Advair*) 500/50 Diskus Inhaler, 1 INH INHALATION BID, #1 INHALER 03/07/19 Losartan-Hydrochlorothiazide (Losartan-HCTZ) 100-25 Mg Tab, 1 TAB PO DAILY for 30 Days, #30 03/07/19 Meloxicam* (Mobic*) 15 Mg Tablet, 15 MG PO DAILY for 30 Days, #30 03/07/19 Aspirin* (Aspirin* EC) 81 Mg Tablet.dr, 81 MG PO DAILY for 30 Days, #30 03/07/19 Amlodipine Besylate* (Amlodipine Besylate*) 10 Mg Tablet, 10 MG PO DAILY for 30 Days, #30 03/07/19 Levothyroxine Sodium* (Synthroid*) 200 Mcg Tablet, 200 MCG PO QAM for 30 Days, #30 03/07/19 Medications He is intermittently rarely compliant with his outpatient regimen including metf ormin Current Medications IV Flush (NS 3 ml) 3 ml PER PROTOCOL IV ; Start 03/06/19 at 23:30 Aspirin (Halfprin) 81 mg DAILY PO Last administered on 03/08/19at 09:33; Admin Dose 81 MG; Start 03/07/19 at 09:00 Levothyroxine Sodium (Synthroid) 200 mcg DAILY@0600 PO Last administered on 03/07/19at 12:08; Admin Dose 200 MCG; Start 03/07/19 at 06:00 Fluticasone/ Vilanterol (Breo Ellipta 200-25 Mcg Inh) 1 inh DAILY INH ; Start 03/07/19 at 09:00 Atorvastatin Calcium (Lipitor) 80 mg DAILY@21 PO Last administered on 03/07/19at 21:18; Admin Dose 80 MG; Start 03/07/19 at 21:00 Hydralazine HCl (Apresoline) 10 mg Q4H PRN IV ELEVATED SYSTOLIC BP; Start 03/07/19 at 03:00 Nicotine (Nicoderm 21 Mg/ 24hr) 1 patch DAILY TRANSDERM Last administered on 03/08/19at 09:33; Admin Dose 1 PATCH; Start 03/07/19 at 03:00 Eye Lubricant (Artificial Tears Oph) 2 drop Q6H PRN BOTH EYES DRY EYES; Start 03/07/19 at 03:00 Miscellaneous Information 1 ea NOTE XX ; Start 03/07/19 at 03:00 Glucose (Glutose) 15 gm Q15M PRN PO DECREASED GLUCOSE; Start 03/07/19 at 03:00 Glucose (Glutose) 22.5 gm Q15M PRN PO DECREASED GLUCOSE; Start 03/07/19 at 03:00 Dextrose (D50w Syringe) 25 ml Q15M PRN IV DECREASED GLUCOSE; Start 03/07/19 at 03:00 Dextrose (D50w Syringe) 50 ml Q15M PRN IV DECREASED GLUCOSE; Start 03/07/19 at 03:00 Glucagon (Glucagen) 1 mg Q15M PRN IM DECREASED GLUCOSE; Start 03/07/19 at 03:00 Glucose (Glutose) 15 gm Q15M PRN BUCCAL DECREASED GLUCOSE; Start 03/07/19 at 03:00 Insulin Glargine (Lantus) 10 units DAILY@0800 SC ; Start 03/07/19 at 08:00; Status Hold Insulin Aspart (Novolog Insulin Pen) NOVOLOG *MODERATE* ALGORI... Q4 SC ; Start 03/07/19 at 09:00; Status Hold Propofol 100 ml @ 2.547 mls/ hr PER PROTOCOL IV Last administered on 03/08/19at 09:35; Admin Dose 25.47 MLS/HR; Start 03/07/19 at 08:30 Norepinephrine 250 ml @ 1.875 mls/ hr PER PROTOCOL IV ; Start 03/07/19 at 09:00 Insulin Human Regular 100 unit/ Sodium Chloride 100 ml @ 0 mls/hr PER PROTOCOL IV Last administered on 03/07/19at 10:28; Admin Dose 4 MLS/HR; Start 03/07/19 at 09:30 Heparin Sodium (Porcine) (Heparin (5000 Units/1ml)) 5,000 unit Q8 SC Last administered on 03/08/19 06:06; Admin Dose 5,000 UNIT; Start 03/07/19 at 14:00 Famotidine (Pepcid Iv) 20 mg BID IV Last administered on 03/08/19 09:33; Admin Dose 20 MG; Start 03/07/19 at 09:30 Diagnostic Test (Pha) (Accu-Chek) 1 ea Q1H XX Last administered on 03/08/19 08:23; Admin Dose 1 EA; Start 03/07/19 at 10:00 Albuterol (Ventolin Hfa) 4 puff Q4H RESP THERAPY INH Last administered on 03/08/19 08:54; Admin Dose 4 PUFF; Start 03/07/19 at 13:00 Ipratropium [place] (Atrovent Hfa) 4 puff Q4H RESP THERAPY INH Last administered on 03/08/19 08:54; Admin Dose 4 PUFF; Start 03/07/19 at 13:00 Methylprednisolone Sodium Succinate (Solu-Medrol) 40 mg Q6 IV Last administered on 03/08/19 06:04; Admin Dose 40 MG; Start 03/07/19 at 12:00 Piperacillin Sod/ Tazobactam Sod 100 ml @ 200 mls/hr Q6 IVPB Last administered on 03/08/19 06:01; Admin Dose 200 MLS/HR; Start 03/07/19 at 12:00 Insulin Human NPH (Humulin N) 6 unit Q6 SC Last administered on 03/08/19 06:06; Admin Dose 6 UNIT; Start 03/07/19 at 18:00 Sodium Chloride 1,000 ml @ 80 mls/hr [id number] IV Last administered on 03/07/19 23:03; Admin Dose 80 MLS/HR; Start 03/07/19 at 22:00 Allergies: Coded Allergies: No Known Allergy (Unverified , 03/06/19) Past Surgical History Past Surgical Hx: no surgical history Family History Significant Family History: diabetes, hypertension Social History Alcohol Use: none Smoking Status: Current every day smoker (2 pack/day) Drug Use: none Exam/Review of Systems Exam Vitals Vital Signs Date Temp Pulse Resp B/P (MAP) Pulse Ox O2 O2 Flow FiO2 Time Delivery Rate 03/08/19 64 24 109/65 99 08:30 (80) 03/08/19 97.9 Mechanical 08:00 Ventilator 03/08/19 75 05:05 03/07/19 15.0 08:00 Intake and Output 03/07/19 03/07/19 03/08/19 1515:00 23:00 07:00 IntakeIntake Total 989.15 ml 260.282 ml 889.658 ml OutputOutput Total 525 ml 325 ml 210 ml BalanceBalance 464.15 ml -64.718 ml 679.658 ml Constitutional: non-verbal ENMT: intubated, other (NG tube in place) Respiratory: crackles/rales (Right basilar crackles), diminished breath sounds (Decreased I to E ratio increased AP diameter) Cardiovascular: regular rate and rhythm, nl pulses Gastrointestinal: soft, nl liver, spleen, non-tender Musculoskeletal: nl extremities to inspection Results Result Diagram: 03/08/19 0454 03/08/19 0454 Results 24hrs Laboratory Tests Test 03/07/19 11:04 03/07/19 12:08 03/07/19 13:10 03/07/19 14:00 Bedside Glucose 338 H 306 H 267 H Blood Gas Blood arterial Specimen Source Arterial Blood 03/07/2019 2:10:1 Date Drawn 8 PM Arterial Blood pH 7.379 (Temp corrected) Arterial Blood 60.2 H pCO2 (Temp correct) Arterial Blood 86.5 pO2 (Temp corrected) Arterial Blood 34.7 H HCO3 Arterial Blood 6.7 H Base Excess Arterial Blood 97.1 Oxygen Saturation Ivan Test ACCEPTAB Arterial Blood Right Radial Gas Puncture Site Arterial 1.1 Blood Carboxyhemo globin Arterial Blood 0.5 Methemoglobin Blood Gas A-a O2 566.3 H Differential Oxyhemoglobin 95.5 Percent Blood Gas 37.0 Temperature Blood Gas 24.0 Respiration Rate Blood Gas Actual 24 Respiration Rate Blood Gas VENT - AC Modality FiO2 100.0 Blood Gas Tidal 550.0 Volume Blood Gas WV Notified Whom Blood Gas 03/07/2019 2:19:1 Notified Time 9 PM Test 03/07/19 14:15 03/07/19 14:22 03/07/19 15:30 03/07/19 16:43 Sodium Level 143 Potassium Level 4.5 Chloride Level 101 Carbon Dioxide 34 H Level Anion Gap 8 Blood Urea 39 H Nitrogen Creatinine 0.79 Est Glomerular Filtrat Rate mL/min Glucose Level 293 #H Calcium Level 8.3 L Bedside Glucose 252 H 221 H White Blood Count 9.8 Red Blood Count 6.19 H Hemoglobin 17.9 Hematocrit 59.1 H Mean Corpuscular 95.5 Volume Mean Corpuscular 28.9 L Hemoglobin Mean Corpuscular 30.3 L Hemoglobin Concen t Red Cell 18.0 H Distribution Width Platelet Count 259 # Mean Platelet 9.8 Volume Immature 0.600 H Granulocytes % Neutrophils % 87.4 H Lymphocytes % 5.6 L Monocytes % 6.2 Eosinophils % 0.0 Basophils % 0.2 Nucleated Red 0.4 H Blood Cells % Immature 0.060 H Granulocytes # Neutrophils # 8.6 H Lymphocytes # 0.6 L Monocytes # 0.6 Eosinophils # 0.0 Basophils # 0.0 Nucleated Red 0.0 Blood Cells # Thyroid 5.010 H Stimulating Hormone (TSH) Free Thyroxine 1.39 Free 2.77 Triiodothyronine (T3) pg/mL Hepatitis A POSITIVE H Antibody Total Hepatitis B NEGATIVE Surface Antigen Hepatitis C NEGATIVE Antibody Test 03/07/19 17:04 03/07/19 18:07 03/07/19 19:54 03/07/19 21:20 Bedside Glucose 201 186 189 189 Test 03/07/19 23:06 03/08/19 00:31 03/08/19 02:15 03/08/19 04:12 Bedside Glucose 158 140 152 124 Test 03/08/19 04:54 03/08/19 06:08 03/08/19 08:06 White Blood Count 8.6 Red Blood Count 5.81 Hemoglobin 16.9 Hematocrit 54.8 H Mean Corpuscular 94.3 Volume Mean Corpuscular 29.1 Hemoglobin Mean Corpuscular 30.8 L Hemoglobin Concen t Red Cell 17.9 H Distribution Width Platelet Count 268 Mean Platelet 10.4 Volume Immature 0.500 H Granulocytes % Neutrophils % 87.7 H Lymphocytes % 6.7 L Monocytes % 5.0 Eosinophils % 0.0 Basophils % 0.1 Nucleated Red 0.2 H Blood Cells % Immature 0.040 H Granulocytes # Neutrophils # 7.5 Lymphocytes # 0.6 L Monocytes # 0.4 Eosinophils # 0.0 Basophils # 0.0 Nucleated Red 0.0 Blood Cells # Sodium Level 143 Potassium Level 4.0 Chloride Level 104 Carbon Dioxide 36 H Level Anion Gap 3 L Blood Urea 41 H Nitrogen Creatinine 0.90 Est Glomerular Filtrat Rate mL/min Glucose Level 141 # Calcium Level 8.4 Phosphorus Level 2.7 Magnesium Level 2.3 Total Bilirubin 0.5 Direct Bilirubin 0.00 Indirect 0.5 Bilirubin Aspartate Amino 26 Transf (AST/SGOT) Alanine 32 Aminotransferase (ALT/SGPT) Alkaline 56 Phosphatase Total Protein 6.0 #L Albumin 3.2 #L Globulin 2.80 Albumin/Globulin 1.14 Ratio Bedside Glucose 129 139 Medications Medication Current Medications IV Flush (NS 3 ml) 3 ml PER PROTOCOL IV ; Start 03/06/19 at 23:30 Aspirin (Halfprin) 81 mg DAILY PO Last administered on 03/08/19at 09:33; Admin Dose 81 MG; Start 03/07/19 at 09:00 Levothyroxine Sodium (Synthroid) 200 mcg DAILY@0600 PO Last administered on 03/07/19at 12:08; Admin Dose 200 MCG; Start 03/07/19 at 06:00 Fluticasone/ Vilanterol (Breo Ellipta 200-25 Mcg Inh) 1 inh DAILY INH ; Start 03/07/19 at 09:00 Atorvastatin Calcium (Lipitor) 80 mg DAILY@21 PO Last administered on 03/07/19at 21:18; Admin Dose 80 MG; Start 03/07/19 at 21:00 Hydralazine HCl (Apresoline) 10 mg Q4H PRN IV ELEVATED SYSTOLIC BP; Start 03/07/19 at 03:00 Nicotine (Nicoderm 21 Mg/ 24hr) 1 patch DAILY TRANSDERM Last administered on 03/08/19at 09:33; Admin Dose 1 PATCH; Start 03/07/19 at 03:00 Eye Lubricant (Artificial Tears Oph) 2 drop Q6H PRN BOTH EYES DRY EYES; Start 03/07/19 at 03:00 Miscellaneous Information 1 ea NOTE XX ; Start 03/07/19 at 03:00 Glucose (Glutose) 15 gm Q15M PRN PO DECREASED GLUCOSE; Start 03/07/19 at 03:00 Glucose (Glutose) 22.5 gm Q15M PRN PO DECREASED GLUCOSE; Start 03/07/19 at 03:00 Dextrose (D50w Syringe) 25 ml Q15M PRN IV DECREASED GLUCOSE; Start 03/07/19 at 03:00 Dextrose (D50w Syringe) 50 ml Q15M PRN IV DECREASED GLUCOSE; Start 03/07/19 at 03:00 Glucagon (Glucagen) 1 mg Q15M PRN IM DECREASED GLUCOSE; Start 03/07/19 at 03:00 Glucose (Glutose) 15 gm Q15M PRN BUCCAL DECREASED GLUCOSE; Start 03/07/19 at 03:00 Insulin Glargine (Lantus) 10 units DAILY@0800 SC ; Start 03/07/19 at 08:00; Status Hold Insulin Aspart (Novolog Insulin Pen) NOVOLOG *MODERATE* ALGORI... Q4 SC ; Start 03/07/19 at 09:00; Status Hold Propofol 100 ml @ 2.547 mls/ hr PER PROTOCOL IV Last administered on 03/08/19at 09:35; Admin Dose 25.47 MLS/HR; Start 03/07/19 at 08:30 Norepinephrine 250 ml @ 1.875 mls/ hr PER PROTOCOL IV ; Start 03/07/19 at 09:00 Insulin Human Regular 100 unit/ Sodium Chloride 100 ml @ 0 mls/hr PER PROTOCOL IV Last administered on 03/07/19at 10:28; Admin Dose 4 MLS/HR; Start 03/07/19 at 09:30 Heparin Sodium (Porcine) (Heparin (5000 Units/1ml)) 5,000 unit Q8 SC Last administered on 03/08/19at 06:06; Admin Dose 5,000 UNIT; Start 03/07/19 at 14:00 Famotidine (Pepcid Iv) 20 mg BID IV Last administered on 03/08/19at 09:33; Admin Dose 20 MG; Start 03/07/19 at 09:30 Diagnostic Test (Pha) (Accu-Chek) 1 ea Q1H XX Last administered on 03/08/19 08:23; Admin Dose 1 EA; Start 03/07/19 at 10:00 Albuterol (Ventolin Hfa) 4 puff Q4H RESP THERAPY INH Last administered on 03/08/19 08:54; Admin Dose 4 PUFF; Start 03/07/19 at 13:00 Ipratropium [place] (Atrovent Hfa) 4 puff Q4H RESP THERAPY INH Last administered on 03/08/19 08:54; Admin Dose 4 PUFF; Start 03/07/19 at 13:00 Methylprednisolone Sodium Succinate (Solu-Medrol) 40 mg Q6 IV Last administered on 03/08/19 06:04; Admin Dose 40 MG; Start 03/07/19 at 12:00 Piperacillin Sod/ Tazobactam Sod 100 ml @ 200 mls/hr Q6 IVPB Last administered on 03/08/19 06:01; Admin Dose 200 MLS/HR; Start 03/07/19 at 12:00 Insulin Human NPH (Humulin N) 6 unit Q6 SC Last administered on 03/08/19 06:06; Admin Dose 6 UNIT; Start 03/07/19 at 18:00 Sodium Chloride 1,000 ml @ 80 mls/hr [id number] IV Last administered on 03/07/19 23:03; Admin Dose 80 MLS/HR; Start 03/07/19 at 22:00 LUIS ENRIQUE ARCOS MD March 08, 2019 10:26
[2019-03-08] MEDS: SOD CHLORIDE 0.9% 1,000 ML IV SCH (10:44)
--- NOTE | 2019-03-08 14:10 | PN ---
Date/Time of Note Date/Time of Note DATE: 03/08/19 TIME: 14:08 Assessment/Plan VTE Prophylaxis Risk score (from Ns)>0 risk: 6 SCD applied (from Nsg): Yes Pharmacological prophylaxis: heparin Lines/Catheters IV Catheter Type (from Nrs): Peripheral IV Assessment/Plan Hospital Course 74 yo man with uncontrolled COPD and diabetes presents in COPD exacerbation after leaving another hospital AMA. #acute COPD exacerbation: - Scheduled nebulization, IV steroids, - Patient developed hypercapnic respiratory failure after arrival. Now intubated in ICU. - Avoid all sedating medications. - Ventilator weaning per pulmonary . # Elevated troponin: - On arrival troponin 0.199 - Patient also was complaining of chest discomfort in the setting of acute COPD exacerbation. - Will continue to trend trops. - Dr Wilson consulted # diabetes mellitus: - Sounds like blood sugars uncontrolled at home. He is only on metformin, A1C 9.8, sugars are also acutely elevated secondary to steroids -Endo consultation appreciated -Continue insulin drip # hypertension: Resume patient's home blood pressure medications # DVT GI prophylaxis: heparin, H2 daniel Result Diagram: 03/08/19 0454 03/08/19 0454 Results 24hrs Laboratory Tests Test 03/07/19 14:15 03/07/19 14:22 03/07/19 15:30 03/07/19 16:43 Sodium Level 143 Potassium Level 4.5 Chloride Level 101 Carbon Dioxide Level 34 H Anion Gap 8 Blood Urea Nitrogen 39 H Creatinine 0.79 Est Glomerular Filtrat Rate mL/min Glucose Level 293 #H Calcium Level 8.3 L Bedside Glucose 252 H 221 H White Blood Count 9.8 Red Blood Count 6.19 H Hemoglobin 17.9 Hematocrit 59.1 H Mean Corpuscular 95.5 Volume Mean Corpuscular 28.9 L Hemoglobin Mean Corpuscular 30.3 L Hemoglobin Concent Red Cell 18.0 H Distribution Width Platelet Count 259 # Mean Platelet Volume 9.8 Immature 0.600 H Granulocytes % Neutrophils % 87.4 H Lymphocytes % 5.6 L Monocytes % 6.2 Eosinophils % 0.0 Basophils % 0.2 Nucleated Red Blood 0.4 H Cells % Immature 0.060 H Granulocytes # Neutrophils # 8.6 H Lymphocytes # 0.6 L Monocytes # 0.6 Eosinophils # 0.0 Basophils # 0.0 Nucleated Red Blood 0.0 Cells # Thyroid Stimulating 5.010 H Hormone (TSH) Free Thyroxine 1.39 Free 2.77 Triiodothyronine (T3) pg/mL Hepatitis A Antibody POSITIVE H Total Hepatitis B Surface NEGATIVE Antigen Hepatitis C Antibody NEGATIVE Test 03/07/19 17:04 03/07/19 18:07 03/07/19 19:54 03/07/19 21:20 Bedside Glucose 201 186 189 189 Test 03/07/19 23:06 03/08/19 00:31 03/08/19 02:15 03/08/19 04:12 Bedside Glucose 158 140 152 124 Test 03/08/19 04:54 03/08/19 06:08 03/08/19 08:06 03/08/19 10:14 White Blood Count 8.6 Red Blood Count 5.81 Hemoglobin 16.9 Hematocrit 54.8 H Mean Corpuscular 94.3 Volume Mean Corpuscular 29.1 Hemoglobin Mean Corpuscular 30.8 L Hemoglobin Concent Red Cell 17.9 H Distribution Width Platelet Count 268 Mean Platelet Volume 10.4 Immature 0.500 H Granulocytes % Neutrophils % 87.7 H Lymphocytes % 6.7 L Monocytes % 5.0 Eosinophils % 0.0 Basophils % 0.1 Nucleated Red Blood 0.2 H Cells % Immature 0.040 H Granulocytes # Neutrophils # 7.5 Lymphocytes # 0.6 L Monocytes # 0.4 Eosinophils # 0.0 Basophils # 0.0 Nucleated Red Blood 0.0 Cells # Sodium Level 143 Potassium Level 4.0 Chloride Level 104 Carbon Dioxide Level 36 H Anion Gap 3 L Blood Urea Nitrogen 41 H Creatinine 0.90 Est Glomerular Filtrat Rate mL/min Glucose Level 141 # Calcium Level 8.4 Phosphorus Level 2.7 Magnesium Level 2.3 Total Bilirubin 0.5 Direct Bilirubin 0.00 Indirect Bilirubin 0.5 Aspartate Amino 26 Transf (AST/SGOT) Alanine 32 Aminotransferase (AL T/SGPT) Alkaline Phosphatase 56 Total Protein 6.0 #L Albumin 3.2 #L Globulin 2.80 Albumin/Globulin 1.14 Ratio Bedside Glucose 129 139 136 Test 03/08/19 12:01 Bedside Glucose 153 Subjective 24 Hr Interval Summary Subjective hx not possible: pt non-verbal Exam/Review of Systems Exam Vitals Vital Signs Date Temp Pulse Resp B/P (MAP) Pulse Ox O2 O2 Flow FiO2 Time Delivery Rate 03/08/19 64 24 96 65 11:00 03/08/19 109/65 08:30 (80) 03/08/19 97.9 Mechanical 08:00 Ventilator 03/07/19 15.0 08:00 Intake and Output 03/07/19 03/07/19 03/08/19 1515:00 23:00 07:00 IntakeIntake Total 989.15 ml 260.282 ml 889.658 ml OutputOutput Total 525 ml 325 ml 210 ml BalanceBalance 464.15 ml -64.718 ml 679.658 ml Constitutional: non-verbal ENMT: intubated Respiratory: clear to auscultation Cardiovascular: regular rate and rhythm Gastrointestinal: soft; No distended Musculoskeletal: nl extremities to inspection Results Results 24hrs Laboratory Tests Test 03/07/19 14:15 03/07/19 14:22 03/07/19 15:30 03/07/19 16:43 Sodium Level 143 Potassium Level 4.5 Chloride Level 101 Carbon Dioxide Level 34 H Anion Gap 8 Blood Urea Nitrogen 39 H Creatinine 0.79 Est Glomerular Filtrat Rate mL/min Glucose Level 293 #H Calcium Level 8.3 L Bedside Glucose 252 H 221 H White Blood Count 9.8 Red Blood Count 6.19 H Hemoglobin 17.9 Hematocrit 59.1 H Mean Corpuscular 95.5 Volume Mean Corpuscular 28.9 L Hemoglobin Mean Corpuscular 30.3 L Hemoglobin Concent Red Cell 18.0 H Distribution Width Platelet Count 259 # Mean Platelet Volume 9.8 Immature 0.600 H Granulocytes % Neutrophils % 87.4 H Lymphocytes % 5.6 L Monocytes % 6.2 Eosinophils % 0.0 Basophils % 0.2 Nucleated Red Blood 0.4 H Cells % Immature 0.060 H Granulocytes # Neutrophils # 8.6 H Lymphocytes # 0.6 L Monocytes # 0.6 Eosinophils # 0.0 Basophils # 0.0 Nucleated Red Blood 0.0 Cells # Thyroid Stimulating 5.010 H Hormone (TSH) Free Thyroxine 1.39 Free 2.77 Triiodothyronine (T3) pg/mL Hepatitis A Antibody POSITIVE H Total Hepatitis B Surface NEGATIVE Antigen Hepatitis C Antibody NEGATIVE Test 03/07/19 17:04 03/07/19 18:07 03/07/19 19:54 03/07/19 21:20 Bedside Glucose 201 186 189 189 Test 03/07/19 23:06 03/08/19 00:31 03/08/19 02:15 03/08/19 04:12 Bedside Glucose 158 140 152 124 Test 03/08/19 04:54 03/08/19 06:08 03/08/19 08:06 03/08/19 10:14 White Blood Count 8.6 Red Blood Count 5.81 Hemoglobin 16.9 Hematocrit 54.8 H Mean Corpuscular 94.3 Volume Mean Corpuscular 29.1 Hemoglobin Mean Corpuscular 30.8 L Hemoglobin Concent Red Cell 17.9 H Distribution Width Platelet Count 268 Mean Platelet Volume 10.4 Immature 0.500 H Granulocytes % Neutrophils % 87.7 H Lymphocytes % 6.7 L Monocytes % 5.0 Eosinophils % 0.0 Basophils % 0.1 Nucleated Red Blood 0.2 H Cells % Immature 0.040 H Granulocytes # Neutrophils # 7.5 Lymphocytes # 0.6 L Monocytes # 0.4 Eosinophils # 0.0 Basophils # 0.0 Nucleated Red Blood 0.0 Cells # Sodium Level 143 Potassium Level 4.0 Chloride Level 104 Carbon Dioxide Level 36 H Anion Gap 3 L Blood Urea Nitrogen 41 H Creatinine 0.90 Est Glomerular Filtrat Rate mL/min Glucose Level 141 # Calcium Level 8.4 Phosphorus Level 2.7 Magnesium Level 2.3 Total Bilirubin 0.5 Direct Bilirubin 0.00 Indirect Bilirubin 0.5 Aspartate Amino 26 Transf (AST/SGOT) Alanine 32 Aminotransferase (AL T/SGPT) Alkaline Phosphatase 56 Total Protein 6.0 #L Albumin 3.2 #L Globulin 2.80 Albumin/Globulin 1.14 Ratio Bedside Glucose 129 139 136 Test 03/08/19 12:01 Bedside Glucose 153 Medications Medication Current Medications IV Flush (NS 3 ml) 3 ml PER PROTOCOL IV ; Start 03/06/19 at 23:30 Aspirin (Halfprin) 81 mg DAILY PO Last administered on 03/08/19at 09:33; Admin Dose 81 MG; Start 03/07/19 at 09:00 Levothyroxine Sodium (Synthroid) 200 mcg DAILY@0600 PO Last administered on 03/07/19at 12:08; Admin Dose 200 MCG; Start 03/07/19 at 06:00 Fluticasone/ Vilanterol (Breo Ellipta 200-25 Mcg Inh) 1 inh DAILY INH ; Start 03/07/19 at 09:00 Atorvastatin Calcium (Lipitor) 80 mg DAILY@21 PO Last administered on 03/07/19at 21:18; Admin Dose 80 MG; Start 03/07/19 at 21:00 Hydralazine HCl (Apresoline) 10 mg Q4H PRN IV ELEVATED SYSTOLIC BP; Start 03/07/19 at 03:00 Nicotine (Nicoderm 21 Mg/ 24hr) 1 patch DAILY TRANSDERM Last administered on 03/08/19at 09:33; Admin Dose 1 PATCH; Start 03/07/19 at 03:00 Eye Lubricant (Artificial Tears Oph) 2 drop Q6H PRN BOTH EYES DRY EYES; Start 03/07/19 at 03:00 Miscellaneous Information 1 ea NOTE XX ; Start 03/07/19 at 03:00 Glucose (Glutose) 15 gm Q15M PRN PO DECREASED GLUCOSE; Start 03/07/19 at 03:00 Glucose (Glutose) 22.5 gm Q15M PRN PO DECREASED GLUCOSE; Start 03/07/19 at 03:00 Dextrose (D50w Syringe) 25 ml Q15M PRN IV DECREASED GLUCOSE; Start 03/07/19 at 03:00 Dextrose (D50w Syringe) 50 ml Q15M PRN IV DECREASED GLUCOSE; Start 03/07/19 at 03:00 Glucagon (Glucagen) 1 mg Q15M PRN IM DECREASED GLUCOSE; Start 03/07/19 at 03:00 Glucose (Glutose) 15 gm Q15M PRN BUCCAL DECREASED GLUCOSE; Start 03/07/19 at 03:00 Insulin Glargine (Lantus) 10 units DAILY@0800 SC ; Start 03/07/19 at 08:00; Status Hold Insulin Aspart (Novolog Insulin Pen) NOVOLOG *MODERATE* ALGORI... Q4 SC ; Start 03/07/19 at 09:00; Status Hold Propofol 100 ml @ 2.547 mls/ hr PER PROTOCOL IV Last administered on 03/08/19at 12:16; Admin Dose 25.47 MLS/HR; Start 03/07/19 at 08:30 Norepinephrine 250 ml @ 1.875 mls/ hr PER PROTOCOL IV ; Start 03/07/19 at 09:00 Insulin Human Regular 100 unit/ Sodium Chloride 100 ml @ 0 mls/hr PER PROTOCOL IV Last administered on 03/07/19at 10:28; Admin Dose 4 MLS/HR; Start 03/07/19 at 09:30 Heparin Sodium (Porcine) (Heparin (5000 Units/1ml)) 5,000 unit Q8 SC Last administered on 03/08/19 06:06; Admin Dose 5,000 UNIT; Start 03/07/19 at 14:00 Famotidine (Pepcid Iv) 20 mg BID IV Last administered on 03/08/19 09:33; Admin Dose 20 MG; Start 03/07/19 at 09:30 Diagnostic Test (Pha) (Accu-Chek) 1 ea Q1H XX Last administered on 03/08/19 12:03; Admin Dose 1 EA; Start 03/07/19 at 10:00 Albuterol (Ventolin Hfa) 4 puff Q4H RESP THERAPY INH Last administered on 03/08/19 08:54; Admin Dose 4 PUFF; Start 03/07/19 at 13:00 Ipratropium [place] (Atrovent Hfa) 4 puff Q4H RESP THERAPY INH Last administered on 03/08/19 08:54; Admin Dose 4 PUFF; Start 03/07/19 at 13:00 Methylprednisolone Sodium Succinate (Solu-Medrol) 40 mg Q6 IV Last administered on 03/08/19 12:08; Admin Dose 40 MG; Start 03/07/19 at 12:00 Piperacillin Sod/ Tazobactam Sod 100 ml @ 200 mls/hr Q6 IVPB Last administered on 03/08/19 12:08; Admin Dose 200 MLS/HR; Start 03/07/19 at 12:00 Insulin Human NPH (Humulin N) 6 unit Q6 SC Last administered on 03/08/19 06:06; Admin Dose 6 UNIT; Start 03/07/19 at 18:00 Sodium Chloride 1,000 ml @ 80 mls/hr [id number] IV Last administered on 03/08/19 10:44; Admin Dose 80 MLS/HR; Start 03/07/19 at 22:00 WALLACE COBB March 08, 2019 14:10
[2019-03-08] MEDS: INSULIN HUMAN REGULAR 100 UNIT in SOD CHLORIDE 0.9% 99 ML IV SCH (18:37)
[2019-03-08] MEDS: ATORVASTATIN 80 MG TAB PO SCH (21:16)
--- NOTE | 2019-03-08 21:32 | CONS ---
Assessment/Plan Assessment/Plan Hospital Course (Demo Recall) Acute respiratory failure with hypoxia/hypercapnia: Initially due to severe COPD exacerbation with PCO2 160 requiring intubation but CXR post intubation shows a large infiltrate which is likely due to aspiration. I do not think he has CHF at this time NSTEMI: mild trops 0.2 x 3. Trend does not suggest ACS but rather type II in setting of above. Will need cardiac eval including echo and eventually either cath or stress testing PNA: likely aspiration as not present on initial CXR. Either happened when he was altered from the hypercapnia or during intubation COPD with severe exacerbation Active tobacco abuse DM HTN -continue ASA, lipitor -BP Meds have been on hold due to marginal BPs post intubation, resume as needed -echocardiogram showed normal LVEF 60% -steroids per pulm/primary teams Consultation Date/Type/Reason Admit Date/Time March 06, 2019 at 23:13 Initial Consult Date 03/07/19 Type of Consult Cardiology Date/Time of Note DATE: 03/08/19 TIME: 21:30 24 HR Interval Summary Free Text/Dictation Remains intubated. Detailed Summary Additional Comments Unable to obtain review of systems, patient is intubated. Exam/Review of Systems Vital Signs Vitals Vital Signs Date Temp Pulse Resp B/P (MAP) Pulse Ox O2 O2 Flow FiO2 Time Delivery Rate 03/08/19 67 24 137/77 91 20:30 (97) 03/08/19 98.6 Mechanical 20:00 Ventilator 03/08/19 65 19:00 03/07/19 15.0 08:00 Intake and Output 03/07/19 03/07/19 03/08/19 1515:00 23:00 07:00 IntakeIntake Total 989.15 ml 260.282 ml 892.658 ml OutputOutput Total 525 ml 325 ml 260 ml BalanceBalance 464.15 ml -64.718 ml 632.658 ml Exam Exam Constitutional: No alert (sedated) Head: normocephalic, atraumatic ENMT: intubated Neck: supple; No jvd Respiratory: diminished breath sounds; No clear to auscultation Cardiovascular: regular rate and rhythm; No edema, No systolic murmur Gastrointestinal: soft, non-tender, distended (mild) Musculoskeletal: No nl extremities to inspection Neurological: No nl mental status, No nl speech Labs Result Diagram: 03/08/19 0454 03/08/19 0454 Results 24hrs Laboratory Tests Test 03/07/19 23:06 03/08/19 00:31 03/08/19 02:15 03/08/19 04:12 Bedside Glucose 158 140 152 124 Test 03/08/19 04:54 03/08/19 06:08 03/08/19 08:06 03/08/19 10:14 White Blood Count 8.6 Red Blood Count 5.81 Hemoglobin 16.9 Hematocrit 54.8 H Mean Corpuscular 94.3 Volume Mean Corpuscular 29.1 Hemoglobin Mean Corpuscular 30.8 L Hemoglobin Concent Red Cell 17.9 H Distribution Width Platelet Count 268 Mean Platelet Volume 10.4 Immature 0.500 H Granulocytes % Neutrophils % 87.7 H Lymphocytes % 6.7 L Monocytes % 5.0 Eosinophils % 0.0 Basophils % 0.1 Nucleated Red Blood 0.2 H Cells % Immature 0.040 H Granulocytes # Neutrophils # 7.5 Lymphocytes # 0.6 L Monocytes # 0.4 Eosinophils # 0.0 Basophils # 0.0 Nucleated Red Blood 0.0 Cells # Sodium Level 143 Potassium Level 4.0 Chloride Level 104 Carbon Dioxide Level 36 H Anion Gap 3 L Blood Urea Nitrogen 41 H Creatinine 0.90 Est Glomerular Filtrat Rate mL/min Glucose Level 141 # Calcium Level 8.4 Phosphorus Level 2.7 Magnesium Level 2.3 Total Bilirubin 0.5 Direct Bilirubin 0.00 Indirect Bilirubin 0.5 Aspartate Amino 26 Transf (AST/SGOT) Alanine 32 Aminotransferase (AL T/SGPT) Alkaline Phosphatase 56 Total Protein 6.0 #L Albumin 3.2 #L Globulin 2.80 Albumin/Globulin 1.14 Ratio Bedside Glucose 129 139 136 Test 03/08/19 12:01 03/08/19 14:14 03/08/19 16:43 03/08/19 17:59 Bedside Glucose 153 143 147 156 Test 03/08/19 20:13 Bedside Glucose 181 Medications Medications Current Medications IV Flush (NS 3 ml) 3 ml PER PROTOCOL IV ; Start 03/06/19 at 23:30 Aspirin (Halfprin) 81 mg DAILY PO Last administered on 03/08/19at 09:33; Admin Dose 81 MG; Start 03/07/19 at 09:00 Levothyroxine Sodium (Synthroid) 200 mcg DAILY@0600 PO Last administered on 03/07/19at 12:08; Admin Dose 200 MCG; Start 03/07/19 at 06:00 Fluticasone/ Vilanterol (Breo Ellipta 200-25 Mcg Inh) 1 inh DAILY INH ; Start 03/07/19 at 09:00 Atorvastatin Calcium (Lipitor) 80 mg DAILY@21 PO Last administered on 03/08/19at 21:16; Admin Dose 80 MG; Start 03/07/19 at 21:00 Hydralazine HCl (Apresoline) 10 mg Q4H PRN IV ELEVATED SYSTOLIC BP; Start 03/07/19 at 03:00 Nicotine (Nicoderm 21 Mg/ 24hr) 1 patch DAILY TRANSDERM Last administered on 03/08/19at 09:33; Admin Dose 1 PATCH; Start 03/07/19 at 03:00 Eye Lubricant (Artificial Tears Oph) 2 drop Q6H PRN BOTH EYES DRY EYES; Start 03/07/19 at 03:00 Miscellaneous Information 1 ea NOTE XX ; Start 03/07/19 at 03:00 Glucose (Glutose) 15 gm Q15M PRN PO DECREASED GLUCOSE; Start 03/07/19 at 03:00 Glucose (Glutose) 22.5 gm Q15M PRN PO DECREASED GLUCOSE; Start 03/07/19 at 03:00 Dextrose (D50w Syringe) 25 ml Q15M PRN IV DECREASED GLUCOSE; Start 03/07/19 at 03:00 Dextrose (D50w Syringe) 50 ml Q15M PRN IV DECREASED GLUCOSE; Start 03/07/19 at 03:00 Glucagon (Glucagen) 1 mg Q15M PRN IM DECREASED GLUCOSE; Start 03/07/19 at 03:00 Glucose (Glutose) 15 gm Q15M PRN BUCCAL DECREASED GLUCOSE; Start 03/07/19 at 03:00 Insulin Glargine (Lantus) 10 units DAILY@0800 SC ; Start 03/07/19 at 08:00; Status Hold Insulin Aspart (Novolog Insulin Pen) NOVOLOG *MODERATE* ALGORI... Q4 SC ; Start 03/07/19 at 09:00; Status Hold Propofol 100 ml @ 2.547 mls/ hr PER PROTOCOL IV Last administered on 03/08/19at 20:22; Admin Dose 25.47 MLS/HR; Start 03/07/19 at 08:30 Norepinephrine 250 ml @ 1.875 mls/ hr PER PROTOCOL IV ; Start 03/07/19 at 09:00 Insulin Human Regular 100 unit/ Sodium Chloride 100 ml @ 0 mls/hr PER PROTOCOL IV Last administered on 03/08/19at 18:37; Admin Dose 3 MLS/HR; Start 03/07/19 at 09:30 Heparin Sodium (Porcine) (Heparin (5000 Units/1ml)) 5,000 unit Q8 SC Last administered on 03/08/19 21:24; Admin Dose 5,000 UNIT; Start 03/07/19 at 14:00 Famotidine (Pepcid Iv) 20 mg BID IV Last administered on 03/08/19 21:16; Admin Dose 20 MG; Start 03/07/19 at 09:30 Diagnostic Test (Pha) (Accu-Chek) 1 ea Q1H XX Last administered on 03/08/19 21:16; Admin Dose 1 EA; Start 03/07/19 at 10:00 Albuterol (Ventolin Hfa) 4 puff Q4H RESP THERAPY INH Last administered on 03/08/19 21:01; Admin Dose 4 PUFF; Start 03/07/19 at 13:00 Ipratropium [place] (Atrovent Hfa) 4 puff Q4H RESP THERAPY INH Last administered on 03/08/19 21:01; Admin Dose 4 PUFF; Start 03/07/19 at 13:00 Methylprednisolone Sodium Succinate (Solu-Medrol) 40 mg Q6 IV Last administered on 03/08/19 18:00; Admin Dose 40 MG; Start 03/07/19 at 12:00 Piperacillin Sod/ Tazobactam Sod 100 ml @ 200 mls/hr Q6 IVPB Last administered on 03/08/19 18:00; Admin Dose 200 MLS/HR; Start 03/07/19 at 12:00 Insulin Human NPH (Humulin N) 6 unit Q6 SC Last administered on 03/08/19 19:10; Admin Dose 6 UNIT; Start 03/07/19 at 18:00 Sodium Chloride 1,000 ml @ 80 mls/hr [id number] IV Last administered on 03/08/19at 10:44; Admin Dose 80 MLS/HR; Start 5/17/19 at 22:00 KIEL KAMARA MD March 08, 2019 21:32
[2019-03-09] VITALS (49 sets, daily range): BP systolic 119–187; BP diastolic 68–139; PULSE 53–78; RESP 16–24
[2019-03-09] MEDS: PIPER-TAZO 3.375 GM IV (PMX) 100 ML IVPB SCH ×5 (00:01→23:54)
[2019-03-09] MEDS: METHYLPREDNISOLONE 40 MG INJ IV SCH ×5 (00:01→23:58)
[2019-03-09] MEDS: SOD CHLORIDE 0.9% 1,000 ML IV SCH ×3 (00:11→20:13)
[2019-03-09] MEDS: NPH, HUMAN INSULIN ISOPHANE 3ML VIAL SC SCH ×4 (00:11→18:16)
[2019-03-09] MEDS: ACCU-CHEK XX SCH ×23 (00:11→23:52)
[2019-03-09] MEDS: ALBUTEROL HFA 8 GM INHALER INH SCH ×6 (00:22→21:18)
[2019-03-09] MEDS: IPRATROPIUM (HFA) 12.9 GM INHALER INH SCH ×6 (00:22→21:18)
[2019-03-09] MEDS: PROPOFOL 100 ML IV SCH ×7 (04:15→23:06)
[2019-03-09] MEDS: HEPARIN 5,000 UNIT/1 ML VIAL SC SCH ×3 (06:06→22:06)
[2019-03-09] MEDS: LEVOTHYROXINE 100 MCG TAB PO SCH (06:18)
[2019-03-09] MEDS: FLUTICASONE/VILANTEROL 200-25 INH DEVICE INH SCH (08:51)
[2019-03-09] MEDS: ASPIRIN (EC) 81 MG TAB PO SCH (09:12)
[2019-03-09] MEDS: FAMOTIDINE 20 MG INJ IV SCH ×2 (09:12→20:56)
[2019-03-09] MEDS: NICOTINE (21 MG/24 HR) PATCH TRANSDERM SCH (09:13)
--- NOTE | 2019-03-09 09:55 | CONS ---
Consult Date/Type/Reason Admit Date/Time March 06, 2019 at 23:13 Initial Consult Date 03/07/19 Type of Consult Pulmonary Date/Time of Note DATE: 03/09/19 TIME: 09:53 Subjective Continues mechanical ventilation opens eyes follows simple commands. FiO2 decreasing to 65%. Remains hemodynamically stable at present. Objective Vital Signs Date Temp Pulse Resp B/P (MAP) Pulse Ox O2 O2 Flow FiO2 Time Delivery Rate 03/09/19 53 08:00 03/09/19 18 119/79 93 05:00 (92) 03/09/19 65 04:59 03/09/19 98.4 Mechanical 04:00 Ventilator 03/07/19 15.0 08:00 Intake and Output 03/08/19 03/08/19 03/09/19 1515:00 23:00 07:00 IntakeIntake Total 664 ml 909.94 ml 1060.06 ml OutputOutput Total 410 ml 400 ml 350 ml BalanceBalance 254 ml 509.94 ml 710.06 ml Vent Setting Ventilator Support Mode: AC Fraction of Inspired Oxygen pe: 65 Positive End Expiratory Pressu: 5.0 Results/Medications Result Diagram: 03/09/19 0446 03/09/19 0446 Results 24 hrs Laboratory Tests Test 03/08/19 10:14 03/08/19 12:01 03/08/19 14:14 03/08/19 16:43 Bedside Glucose 136 153 143 147 Test 03/08/19 17:59 03/08/19 20:13 03/08/19 21:18 03/09/19 00:03 Bedside Glucose 156 181 171 169 Test 03/09/19 02:05 03/09/19 04:16 03/09/19 04:46 03/09/19 05:15 Bedside Glucose 170 197 210 White Blood Count 7.1 Red Blood Count 5.53 Hemoglobin 16.1 Hematocrit 51.4 Mean Corpuscular 92.9 Volume Mean Corpuscular 29.1 Hemoglobin Mean Corpuscular 31.3 L Hemoglobin Concen t Red Cell 17.5 H Distribution Width Platelet Count 233 Mean Platelet 10.8 H Volume Immature 0.600 H Granulocytes % Neutrophils % 86.1 H Lymphocytes % 8.0 L Monocytes % 5.3 Eosinophils % 0.0 Basophils % 0.0 Nucleated Red 0.0 Blood Cells % Immature 0.040 H Granulocytes # Neutrophils # 6.1 Lymphocytes # 0.6 L Monocytes # 0.4 Eosinophils # 0.0 Basophils # 0.0 Nucleated Red 0.0 Blood Cells # Sodium Level 144 Potassium Level 3.6 Chloride Level 107 Carbon Dioxide 31 Level Anion Gap 6 Blood Urea 34 H Nitrogen Creatinine 0.70 Est Glomerular Filtrat Rate mL/min Glucose Level 218 Calcium Level 8.3 L Phosphorus Level 3.8 Magnesium Level 2.3 Total Bilirubin 0.4 Direct Bilirubin 0.00 Indirect 0.4 Bilirubin Aspartate Amino 17 Transf (AST/SGOT) Alanine 27 Aminotransferase (ALT/SGPT) Alkaline 53 Phosphatase Total Protein 6.1 Albumin 3.0 L Globulin 3.10 Albumin/Globulin 0.96 Ratio Test 03/09/19 06:11 03/09/19 07:00 03/09/19 09:11 Bedside Glucose 169 162 176 Blood Gas Blood arterial Specimen Source Arterial Blood 03/09/2019 8:10:4 Date Drawn 5 AM Arterial Blood pH 7.469 H (Temp corrected) Arterial Blood 38.4 pCO2 (Temp correct) Arterial Blood 64.8 L pO2 (Temp corrected) Arterial Blood 27.3 H HCO3 Arterial Blood 3.6 H Base Excess Arterial Blood 92.8 L Oxygen Saturation Ivan Test ACCEPTAB Arterial Blood Right Radial Gas Puncture Site Arterial 0.4 Blood Carboxyhemo globin Arterial Blood 0.2 Methemoglobin Blood Gas A-a O2 356.9 H Differential Oxyhemoglobin 92.2 L Percent Blood Gas 37.0 Temperature Blood Gas 24.0 Respiration Rate Blood Gas Actual 24 Respiration Rate Blood Gas VENT - AC Modality FiO2 65.0 Blood Gas Tidal 550.0 Volume Blood Gas Low 5.0 PEEP Setting Blood Gas DT Notified Whom Blood Gas 03/09/2019 8:40:3 Notified Time 8 AM Medications Current Medications IV Flush (NS 3 ml) 3 ml PER PROTOCOL IV ; Start 03/06/19 at 23:30 Aspirin (Halfprin) 81 mg DAILY PO Last administered on 03/09/19at 09:12; Admin Dose 81 MG; Start 03/07/19 at 09:00 Levothyroxine Sodium (Synthroid) 200 mcg DAILY@0600 PO Last administered on 03/09/19at 06:18; Admin Dose 200 MCG; Start 03/07/19 at 06:00 Fluticasone/ Vilanterol (Breo Ellipta 200-25 Mcg Inh) 1 inh DAILY INH ; Start 03/07/19 at 09:00 Atorvastatin Calcium (Lipitor) 80 mg DAILY@21 PO Last administered on 03/08/19at 21:16; Admin Dose 80 MG; Start 03/07/19 at 21:00 Hydralazine HCl (Apresoline) 10 mg Q4H PRN IV ELEVATED SYSTOLIC BP; Start 03/07/19 at 03:00 Nicotine (Nicoderm 21 Mg/ 24hr) 1 patch DAILY TRANSDERM Last administered on 03/09/19at 09:13; Admin Dose 1 PATCH; Start 03/07/19 at 03:00 Eye Lubricant (Artificial Tears Oph) 2 drop Q6H PRN BOTH EYES DRY EYES; Start 03/07/19 at 03:00 Miscellaneous Information 1 ea NOTE XX ; Start 03/07/19 at 03:00 Glucose (Glutose) 15 gm Q15M PRN PO DECREASED GLUCOSE; Start 03/07/19 at 03:00 Glucose (Glutose) 22.5 gm Q15M PRN PO DECREASED GLUCOSE; Start 03/07/19 at 03:00 Dextrose (D50w Syringe) 25 ml Q15M PRN IV DECREASED GLUCOSE; Start 03/07/19 at 03:00 Dextrose (D50w Syringe) 50 ml Q15M PRN IV DECREASED GLUCOSE; Start 03/07/19 at 03:00 Glucagon (Glucagen) 1 mg Q15M PRN IM DECREASED GLUCOSE; Start 03/07/19 at 03:00 Glucose (Glutose) 15 gm Q15M PRN BUCCAL DECREASED GLUCOSE; Start 03/07/19 at 03:00 Insulin Glargine (Lantus) 10 units DAILY@0800 SC ; Start 03/07/19 at 08:00; Status Hold Insulin Aspart (Novolog Insulin Pen) NOVOLOG *MODERATE* ALGORI... Q4 SC ; Start 03/07/19 at 09:00; Status Hold Propofol 100 ml @ 2.547 mls/ hr PER PROTOCOL IV Last administered on 03/09/19at 04:15; Admin Dose 25.47 MLS/HR; Start 03/07/19 at 08:30 Norepinephrine 250 ml @ 1.875 mls/ hr PER PROTOCOL IV ; Start 03/07/19 at 09:00 Insulin Human Regular 100 unit/ Sodium Chloride 100 ml @ 0 mls/hr PER PROTOCOL IV Last administered on 03/08/19 18:37; Admin Dose 3 MLS/HR; Start 03/07/19 at 09:30 Heparin Sodium (Porcine) (Heparin (5000 Units/1ml)) 5,000 unit Q8 SC Last administered on 03/09/19 06:06; Admin Dose 5,000 UNIT; Start 03/07/19 at 14:00 Famotidine (Pepcid Iv) 20 mg BID IV Last administered on 03/09/19 09:12; Admin Dose 20 MG; Start 03/07/19 at 09:30 Diagnostic Test (Pha) (Accu-Chek) 1 ea Q1H XX Last administered on 03/09/19 09:13; Admin Dose 1 EA; Start 03/07/19 at 10:00 Albuterol (Ventolin Hfa) 4 puff Q4H RESP THERAPY INH Last administered on 03/09/19 08:52; Admin Dose 4 PUFF; Start 03/07/19 at 13:00 Ipratropium [place] (Atrovent Hfa) 4 puff Q4H RESP THERAPY INH Last administered on 03/09/19 08:52; Admin Dose 4 PUFF; Start 03/07/19 at 13:00 Methylprednisolone Sodium Succinate (Solu-Medrol) 40 mg Q6 IV Last administered on 03/09/19 06:04; Admin Dose 40 MG; Start 03/07/19 at 12:00 Piperacillin Sod/ Tazobactam Sod 100 ml @ 200 mls/hr Q6 IVPB Last administered on 03/09/19 06:02; Admin Dose 200 MLS/HR; Start 03/07/19 at 12:00 Insulin Human NPH (Humulin N) 6 unit Q6 SC Last administered on 03/09/19 06:05; Admin Dose 6 UNIT; Start 03/07/19 at 18:00 Sodium Chloride 1,000 ml @ 80 mls/hr [id number] IV Last administered on 03/09/19 05:18; Admin Dose 80 MLS/HR; Start 03/07/19 at 22:00 Assessment/Plan Hospital Course (Demo Recall) IMPRESSION: 1. Acute hypoxemic and hypercapnic respiratory failure, probable aspiration pneumonia during intubation for COPD exacerbation. 2. Non-ST elevation myocardial infarction, possibly type 2. 3. Underlying history of hypertension. 4. Extensive ongoing tobacco history with chronic obstructive pulmonary disease. Chronic hypercapnic respiratory failure PLAN: 1. Continue antibiotics. 2. Sputum studies. 3. Steroid taper. 4. Bronchodilators. 5. Cardiology recommendations. 6. DVT and GI prophylaxis. 7. Tube feeding as tolerated Long discussion with son at bedside. Continue AC mechanical ventilation CPAP trial once FiO2 down to 40%. Critical care time 40 minutes. JOSÉ ANTONIO LOJA MD, [facility] March 09, 2019 09:55
--- NOTE | 2019-03-09 10:53 | CONS ---
Assessment/Plan Assessment/Plan Problems: (1) Diabetes mellitus type 2 in nonobese Status: Chronic Comment: Adequate glycemic control. As he moves forward towards extubation we will try and fine-tune this. Please note the NPH will need to be adjusted when the steroids intravenously are adjusted (2) Right lower lobe pneumonia Status: Acute Comment: As per pulmonary, and primary team appears to be responding Qualifiers: Pneumonia type: aspiration pneumonia Aspiration pneumonia type: unspeci fied Qualified Codes: J69.0 - Pneumonitis due to inhalation of food and vomit (3) COPD with acute exacerbation Status: Chronic Comment: On ventilator with maximal assist. I suspect we could actually improve his quality of life at home a great deal if he would be cooperative with medications. All of his family members today have indicated that he would be somewhat reticent to be fully cooperative (4) Essential hypertension Status: Chronic Comment: Presently on support (5) Grade I diastolic dysfunction Status: Chronic Comment: Noted (6) Acute hypercapnic respiratory failure Onset Date: ~ 03/06/2019 Status: Acute Comment: As per pulmonary for extubation (7) Secondary polycythemia Status: Chronic Comment: Improved with all the blood test. Please note that this need to be dealt with as the hyperviscosity was having a negative impact on his hemodynamics (8) Tobacco abuse Status: Chronic Comment: He is sedated we cannot addictions counselor assistant him at this time. CC: RADU VIVAS; ETHAN SALEH MD; JOSÉ ANTONIO LOJA MD, [facility] ; Consultation Date/Type/Reason Admit Date/Time March 06, 2019 at 23:13 Initial Consult Date 03/07/19 Type of Consult Endocrinology Reason for Consultation Diabetes mellitus type 2 with poor control as an outpatient; advanced COPD with tobacco abuse; aspiration pneumonia of the right lower lobe; respiratory failur e; Requesting Provider: ETHAN SALEH MD Date/Time of Note DATE: 03/09/19 TIME: 10:49 24 HR Interval Summary Free Text/Dictation Patient remains intubated at this time and on sedation Subjective hx not possible: pt non-verbal, pt critical status Exam/Review of Systems Exam Vitals Vital Signs Date Temp Pulse Resp B/P (MAP) Pulse Ox O2 O2 Flow FiO2 Time Delivery Rate 03/09/19 62 24 142/80 92 10:30 (100) 03/09/19 Mechanical 10:00 Ventilator 03/09/19 98.8 08:00 03/09/19 65 04:59 03/07/19 15.0 08:00 Intake and Output 03/08/19 03/08/19 03/09/19 1515:00 23:00 07:00 IntakeIntake Total 664 ml 909.94 ml 1090.06 ml OutputOutput Total 410 ml 400 ml 385 ml BalanceBalance 254 ml 509.94 ml 705.06 ml Constitutional: non-verbal ENMT: intubated Respiratory: crackles/rales (Right base crackles), diminished breath sounds (Increased AP diameter) Cardiovascular: regular rate and rhythm, nl pulses Gastrointestinal: soft, nl liver, spleen, non-tender Results Result Diagram: 03/09/196 03/09/19445 Results 24hrs Laboratory Tests Test 03/08/19 12:01 03/08/19 14:14 03/08/19 16:43 03/08/19 17:59 Bedside Glucose 153 143 147 156 Test 03/08/19 20:13 03/08/19 21:18 03/09/19 00:03 03/09/19 02:05 Bedside Glucose 181 171 169 170 Test 03/09/19 04:16 03/09/19 04:46 03/09/19 05:15 03/09/19 06:11 Bedside Glucose 197 210 169 White Blood Count 7.1 Red Blood Count 5.53 Hemoglobin 16.1 Hematocrit 51.4 Mean Corpuscular 92.9 Volume Mean Corpuscular 29.1 Hemoglobin Mean Corpuscular 31.3 L Hemoglobin Concen t Red Cell 17.5 H Distribution Width Platelet Count 233 Mean Platelet 10.8 H Volume Immature 0.600 H Granulocytes % Neutrophils % 86.1 H Lymphocytes % 8.0 L Monocytes % 5.3 Eosinophils % 0.0 Basophils % 0.0 Nucleated Red 0.0 Blood Cells % Immature 0.040 H Granulocytes # Neutrophils # 6.1 Lymphocytes # 0.6 L Monocytes # 0.4 Eosinophils # 0.0 Basophils # 0.0 Nucleated Red 0.0 Blood Cells # Sodium Level 144 Potassium Level 3.6 Chloride Level 107 Carbon Dioxide 31 Level Anion Gap 6 Blood Urea 34 H Nitrogen Creatinine 0.70 Est Glomerular Filtrat Rate mL/min Glucose Level 218 Calcium Level 8.3 L Phosphorus Level 3.8 Magnesium Level 2.3 Total Bilirubin 0.4 Direct Bilirubin 0.00 Indirect 0.4 Bilirubin Aspartate Amino 17 Transf (AST/SGOT) Alanine 27 Aminotransferase (ALT/SGPT) Alkaline 53 Phosphatase Total Protein 6.1 Albumin 3.0 L Globulin 3.10 Albumin/Globulin 0.96 Ratio Test 03/09/19 07:00 03/09/19 09:11 Blood Gas Blood arterial Specimen Source Arterial Blood 03/09/2019 8:10:4 Date Drawn 5 AM Arterial Blood pH 7.469 H (Temp corrected) Arterial Blood 38.4 pCO2 (Temp correct) Arterial Blood 64.8 L pO2 (Temp corrected) Arterial Blood 27.3 H HCO3 Arterial Blood 3.6 H Base Excess Arterial Blood 92.8 L Oxygen Saturation Ivan Test ACCEPTAB Arterial Blood Right Radial Gas Puncture Site Arterial 0.4 Blood Carboxyhemo globin Arterial Blood 0.2 Methemoglobin Blood Gas A-a O2 356.9 H Differential Oxyhemoglobin 92.2 L Percent Blood Gas 37.0 Temperature Blood Gas 24.0 Respiration Rate Blood Gas Actual 24 Respiration Rate Blood Gas VENT - AC Modality FiO2 65.0 Blood Gas Tidal 550.0 Volume Blood Gas Low 5.0 PEEP Setting Blood Gas DT Notified Whom Blood Gas 03/09/2019 8:40:3 Notified Time 8 AM Bedside Glucose 162 176 Medications Medication Current Medications IV Flush (NS 3 ml) 3 ml PER PROTOCOL IV ; Start 03/06/19 at 23:30 Aspirin (Halfprin) 81 mg DAILY PO Last administered on 03/09/19at 09:12; Admin Dose 81 MG; Start 03/07/19 at 09:00 Levothyroxine Sodium (Synthroid) 200 mcg DAILY@0600 PO Last administered on 03/09/19at 06:18; Admin Dose 200 MCG; Start 03/07/19 at 06:00 Fluticasone/ Vilanterol (Breo Ellipta 200-25 Mcg Inh) 1 inh DAILY INH ; Start 03/07/19 at 09:00 Atorvastatin Calcium (Lipitor) 80 mg DAILY@21 PO Last administered on 03/08/19at 21:16; Admin Dose 80 MG; Start 03/07/19 at 21:00 Hydralazine HCl (Apresoline) 10 mg Q4H PRN IV ELEVATED SYSTOLIC BP; Start 03/07/19 at 03:00 Nicotine (Nicoderm 21 Mg/ 24hr) 1 patch DAILY TRANSDERM Last administered on 03/09/19at 09:13; Admin Dose 1 PATCH; Start 03/07/19 at 03:00 Eye Lubricant (Artificial Tears Oph) 2 drop Q6H PRN BOTH EYES DRY EYES; Start 03/07/19 at 03:00 Miscellaneous Information 1 ea NOTE XX ; Start 03/07/19 at 03:00 Glucose (Glutose) 15 gm Q15M PRN PO DECREASED GLUCOSE; Start 03/07/19 at 03:00 Glucose (Glutose) 22.5 gm Q15M PRN PO DECREASED GLUCOSE; Start 03/07/19 at 03:00 Dextrose (D50w Syringe) 25 ml Q15M PRN IV DECREASED GLUCOSE; Start 03/07/19 at 03:00 Dextrose (D50w Syringe) 50 ml Q15M PRN IV DECREASED GLUCOSE; Start 03/07/19 at 03:00 Glucagon (Glucagen) 1 mg Q15M PRN IM DECREASED GLUCOSE; Start 03/07/19 at 03:00 Glucose (Glutose) 15 gm Q15M PRN BUCCAL DECREASED GLUCOSE; Start 03/07/19 at 03 :00 Insulin Glargine (Lantus) 10 units DAILY@0800 SC ; Start 03/07/19 at 08:00; Status Hold Insulin Aspart (Novolog Insulin Pen) NOVOLOG *MODERATE* ALGORI... Q4 SC ; Start 03/07/19 at 09:00; Status Hold Propofol 100 ml @ 2.547 mls/ hr PER PROTOCOL IV Last administered on 03/09/19at 04:15; Admin Dose 25.47 MLS/HR; Start 03/07/19 at 08:30 Norepinephrine 250 ml @ 1.875 mls/ hr PER PROTOCOL IV ; Start 03/07/19 at 09:00 Insulin Human Regular 100 unit/ Sodium Chloride 100 ml @ 0 mls/hr PER PROTOCOL IV Last administered on 03/08/19at 18:37; Admin Dose 3 MLS/HR; Start 03/07/19 at 09:30 Heparin Sodium (Porcine) (Heparin (5000 Units/1ml)) 5,000 unit Q8 SC Last administered on 03/09/19at 06:06; Admin Dose 5,000 UNIT; Start 03/07/19 at 14:00 Famotidine (Pepcid Iv) 20 mg BID IV Last administered on 03/09/19 09:12; Admin Dose 20 MG; Start 03/07/19 at 09:30 Diagnostic Test (Pha) (Accu-Chek) 1 ea Q1H XX Last administered on 03/09/19 10:00; Admin Dose 1 EA; Start 03/07/19 at 10:00 Albuterol (Ventolin Hfa) 4 puff Q4H RESP THERAPY INH Last administered on 03/09/19 08:52; Admin Dose 4 PUFF; Start 03/07/19 at 13:00 Ipratropium [place] (Atrovent Hfa) 4 puff Q4H RESP THERAPY INH Last admini stered on 03/09/19 08:52; Admin Dose 4 PUFF; Start 03/07/19 at 13:00 Methylprednisolone Sodium Succinate (Solu-Medrol) 40 mg Q6 IV Last administered on 03/09/19 06:04; Admin Dose 40 MG; Start 03/07/19 at 12:00 Piperacillin Sod/ Tazobactam Sod 100 ml @ 200 mls/hr Q6 IVPB Last administered on 03/09/19 06:02; Admin Dose 200 MLS/HR; Start 03/07/19 at 12:00 Insulin Human NPH (Humulin N) 6 unit Q6 SC Last administered on 03/09/19 06:05; Admin Dose 6 UNIT; Start 03/07/19 at 18:00 Sodium Chloride 1,000 ml @ 80 mls/hr [id number] IV Last administered on 03/09/19 05:18; Admin Dose 80 MLS/HR; Start 03/07/19 at 22:00 LUIS ENRIQUE ARCOS MD March 09, 2019 10:53
--- NOTE | 2019-03-09 12:04 | PN ---
Date/Time of Note Date/Time of Note DATE: 03/09/19 TIME: 11:59 Assessment/Plan VTE Prophylaxis Risk score (from Nsg)>0 risk: 6 SCD applied (from Nsg): Yes Pharmacological prophylaxis: heparin Lines/Catheters IV Catheter Type (from Nrsg): Peripheral IV Assessment/Plan Hospital Course 74 yo man with uncontrolled COPD and diabetes presents in COPD exacerbation after leaving another hospital AMA. #Acute respiratory failure secondary to COPD exacerbation and aspiration pneumonia -Continue Zosyn - Scheduled nebulization, IV steroids, - Patient developed hypercapnic respiratory failure after arrival, continue ventilator support - Avoid all sedating medications. - Ventilator weaning per pulmonary, continues to require elevated FiO2 . # Elevated troponin: - On arrival troponin 0.199 - Patient also was complaining of chest discomfort in the setting of acute COPD exacerbation. - Will continue to trend trops. - Dr Wilson consultation appreciated # diabetes mellitus: -A1c of 9.8 and patient is only on metformin at home, sugars are also acutely elevated secondary to steroids -Endo consultation appreciated -Continue insulin drip # hypertension: Resume patient's home blood pressure medications as able # DVT GI prophylaxis: heparin, H2 daniel Result Diagram: 03/09/19 0446 03/09/19 0446 Results 24hrs Laboratory Tests Test 03/08/19 12:01 03/08/19 14:14 03/08/19 16:43 03/08/19 17:59 Bedside Glucose 153 143 147 156 Test 03/08/19 20:13 03/08/19 21:18 03/09/19 00:03 03/09/19 02:05 Bedside Glucose 181 171 169 170 Test 03/09/19 04:16 03/09/19 04:46 03/09/19 05:15 03/09/19 06:11 Bedside Glucose 197 210 169 White Blood Count 7.1 Red Blood Count 5.53 Hemoglobin 16.1 Hematocrit 51.4 Mean Corpuscular 92.9 Volume Mean Corpuscular 29.1 Hemoglobin Mean Corpuscular 31.3 L Hemoglobin Concen t Red Cell 17.5 H Distribution Width Platelet Count 233 Mean Platelet 10.8 H Volume Immature 0.600 H Granulocytes % Neutrophils % 86.1 H Lymphocytes % 8.0 L Monocytes % 5.3 Eosinophils % 0.0 Basophils % 0.0 Nucleated Red 0.0 Blood Cells % Immature 0.040 H Granulocytes # Neutrophils # 6.1 Lymphocytes # 0.6 L Monocytes # 0.4 Eosinophils # 0.0 Basophils # 0.0 Nucleated Red 0.0 Blood Cells # Sodium Level 144 Potassium Level 3.6 Chloride Level 107 Carbon Dioxide 31 Level Anion Gap 6 Blood Urea 34 H Nitrogen Creatinine 0.70 Est Glomerular Filtrat Rate mL/min Glucose Level 218 Calcium Level 8.3 L Phosphorus Level 3.8 Magnesium Level 2.3 Total Bilirubin 0.4 Direct Bilirubin 0.00 Indirect 0.4 Bilirubin Aspartate Amino 17 Transf (AST/SGOT) Alanine 27 Aminotransferase (ALT/SGPT) Alkaline 53 Phosphatase Total Protein 6.1 Albumin 3.0 L Globulin 3.10 Albumin/Globulin 0.96 Ratio Test 03/09/19 07:00 03/09/19 09:11 03/09/19 11:14 Blood Gas Blood arterial Specimen Source Arterial Blood 03/09/2019 8:10:4 Date Drawn 5 AM Arterial Blood pH 7.469 H (Temp corrected) Arterial Blood 38.4 pCO2 (Temp correct) Arterial Blood 64.8 L pO2 (Temp corrected) Arterial Blood 27.3 H HCO3 Arterial Blood 3.6 H Base Excess Arterial Blood 92.8 L Oxygen Saturation Ivan Test ACCEPTAB Arterial Blood Right Radial Gas Puncture Site Arterial 0.4 Blood Carboxyhemo globin Arterial Blood 0.2 Methemoglobin Blood Gas A-a O2 356.9 H Differential Oxyhemoglobin 92.2 L Percent Blood Gas 37.0 Temperature Blood Gas 24.0 Respiration Rate Blood Gas Actual 24 Respiration Rate Blood Gas VENT - AC Modality FiO2 65.0 Blood Gas Tidal 550.0 Volume Blood Gas Low 5.0 PEEP Setting Blood Gas DT Notified Whom Blood Gas 03/09/2019 8:40:3 Notified Time 8 AM Bedside Glucose 162 176 167 Subjective 24 Hr Interval Summary Subjective hx not possible: pt non-verbal Exam/Review of Systems Exam Vitals Vital Signs Date Temp Pulse Resp B/P (MAP) Pulse Ox O2 O2 Flow FiO2 Time Delivery Rate 03/09/19 62 24 142/80 92 10:30 (100) 03/09/19 Mechanical 10:00 Ventilator 03/09/19 98.8 08:00 03/09/19 65 04:59 03/07/19 15.0 08:00 Intake and Output 03/08/19 03/08/19 03/09/19 1515:00 23:00 07:00 IntakeIntake Total 664 ml 909.94 ml 1090.06 ml OutputOutput Total 410 ml 400 ml 385 ml BalanceBalance 254 ml 509.94 ml 705.06 ml Constitutional: non-verbal ENMT: intubated Respiratory: clear to auscultation Cardiovascular: regular rate and rhythm Gastrointestinal: soft; No distended Musculoskeletal: nl extremities to inspection Results Results 24hrs Laboratory Tests Test 03/08/19 12:01 03/08/19 14:14 03/08/19 16:43 03/08/19 17:59 Bedside Glucose 153 143 147 156 Test 03/08/19 20:13 03/08/19 21:18 03/09/19 00:03 03/09/19 02:05 Bedside Glucose 181 171 169 170 Test 03/09/19 04:16 03/09/19 04:46 03/09/19 05:15 03/09/19 06:11 Bedside Glucose 197 210 169 White Blood Count 7.1 Red Blood Count 5.53 Hemoglobin 16.1 Hematocrit 51.4 Mean Corpuscular 92.9 Volume Mean Corpuscular 29.1 Hemoglobin Mean Corpuscular 31.3 L Hemoglobin Concen t Red Cell 17.5 H Distribution Width Platelet Count 233 Mean Platelet 10.8 H Volume Immature 0.600 H Granulocytes % Neutrophils % 86.1 H Lymphocytes % 8.0 L Monocytes % 5.3 Eosinophils % 0.0 Basophils % 0.0 Nucleated Red 0.0 Blood Cells % Immature 0.040 H Granulocytes # Neutrophils # 6.1 Lymphocytes # 0.6 L Monocytes # 0.4 Eosinophils # 0.0 Basophils # 0.0 Nucleated Red 0.0 Blood Cells # Sodium Level 144 Potassium Level 3.6 Chloride Level 107 Carbon Dioxide 31 Level Anion Gap 6 Blood Urea 34 H Nitrogen Creatinine 0.70 Est Glomerular Filtrat Rate mL/min Glucose Level 218 Calcium Level 8.3 L Phosphorus Level 3.8 Magnesium Level 2.3 Total Bilirubin 0.4 Direct Bilirubin 0.00 Indirect 0.4 Bilirubin Aspartate Amino 17 Transf (AST/SGOT) Alanine 27 Aminotransferase (ALT/SGPT) Alkaline 53 Phosphatase Total Protein 6.1 Albumin 3.0 L Globulin 3.10 Albumin/Globulin 0.96 Ratio Test 03/09/19 07:00 03/09/19 09:11 03/09/19 11:14 Blood Gas Blood arterial Specimen Source Arterial Blood 03/09/2019 8:10:4 Date Drawn 5 AM Arterial Blood pH 7.469 H (Temp corrected) Arterial Blood 38.4 pCO2 (Temp correct) Arterial Blood 64.8 L pO2 (Temp corrected) Arterial Blood 27.3 H HCO3 Arterial Blood 3.6 H Base Excess Arterial Blood 92.8 L Oxygen Saturation Ivan Test ACCEPTAB Arterial Blood Right Radial Gas Puncture Site Arterial 0.4 Blood Carboxyhemo globin Arterial Blood 0.2 Methemoglobin Blood Gas A-a O2 356.9 H Differential Oxyhemoglobin 92.2 L Percent Blood Gas 37.0 Temperature Blood Gas 24.0 Respiration Rate Blood Gas Actual 24 Respiration Rate Blood Gas VENT - AC Modality FiO2 65.0 Blood Gas Tidal 550.0 Volume Blood Gas Low 5.0 PEEP Setting Blood Gas DT Notified Whom Blood Gas 03/09/2019 8:40:3 Notified Time 8 AM Bedside Glucose 162 176 167 Medications Medication Current Medications IV Flush (NS 3 ml) 3 ml PER PROTOCOL IV ; Start 03/06/19 at 23:30 Aspirin (Halfprin) 81 mg DAILY PO Last administered on 03/09/19at 09:12; Admin Dose 81 MG; Start 03/07/19 at 09:00 Levothyroxine Sodium (Synthroid) 200 mcg DAILY@0600 PO Last administered on 03/09/19at 06:18; Admin Dose 200 MCG; Start 03/07/19 at 06:00 Fluticasone/ Vilanterol (Breo Ellipta 200-25 Mcg Inh) 1 inh DAILY INH ; Start 03/07/19 at 09:00 Atorvastatin Calcium (Lipitor) 80 mg DAILY@21 PO Last administered on 03/08/19at 21:16; Admin Dose 80 MG; Start 03/07/19 at 21:00 Hydralazine HCl (Apresoline) 10 mg Q4H PRN IV ELEVATED SYSTOLIC BP; Start 03/07/19 at 03:00 Nicotine (Nicoderm 21 Mg/ 24hr) 1 patch DAILY TRANSDERM Last administered on 03/09/19at 09:13; Admin Dose 1 PATCH; Start 03/07/19 at 03:00 Eye Lubricant (Artificial Tears Oph) 2 drop Q6H PRN BOTH EYES DRY EYES; Start 03/07/19 at 03:00 Miscellaneous Information 1 ea NOTE XX ; Start 03/07/19 at 03:00 Glucose (Glutose) 15 gm Q15M PRN PO DECREASED GLUCOSE; Start 03/07/19 at 03:00 Glucose (Glutose) 22.5 gm Q15M PRN PO DECREASED GLUCOSE; Start 03/07/19 at 03:00 Dextrose (D50w Syringe) 25 ml Q15M PRN IV DECREASED GLUCOSE; Start 03/07/19 at 03:00 Dextrose (D50w Syringe) 50 ml Q15M PRN IV DECREASED GLUCOSE; Start 03/07/19 at 03:00 Glucagon (Glucagen) 1 mg Q15M PRN IM DECREASED GLUCOSE; Start 03/07/19 at 03:00 Glucose (Glutose) 15 gm Q15M PRN BUCCAL DECREASED GLUCOSE; Start 03/07/19 at 03:00 Insulin Glargine (Lantus) 10 units DAILY@0800 SC ; Start 03/07/19 at 08:00; Status Hold Insulin Aspart (Novolog Insulin Pen) NOVOLOG *MODERATE* ALGORI... Q4 SC ; Start 03/07/19 at 09:00; Status Hold Propofol 100 ml @ 2.547 mls/ hr PER PROTOCOL IV Last administered on 03/09/19at 11:15; Admin Dose 22.923 MLS/HR; Start 03/07/19 at 08:30 Norepinephrine 250 ml @ 1.875 mls/ hr PER PROTOCOL IV ; Start 03/07/19 at 09:00 Insulin Human Regular 100 unit/ Sodium Chloride 100 ml @ 0 mls/hr PER PROTOCOL IV Last administered on 03/08/19at 18:37; Admin Dose 3 MLS/HR; Start 03/07/19 at 09:30 Heparin Sodium (Porcine) (Heparin (5000 Units/1ml)) 5,000 unit Q8 SC Last administered on 03/09/19at 06:06; Admin Dose 5,000 UNIT; Start 03/07/19 at 14:00 Famotidine (Pepcid Iv) 20 mg BID IV Last administered on 03/09/19at 09:12; Admin Dose 20 MG; Start 03/07/19 at 09:30 Diagnostic Test (Pha) (Accu-Chek) 1 ea Q1H XX Last administered on 03/09/19at 11:16; Admin Dose 1 EA; Start 03/07/19 at 10:00 Albuterol (Ventolin Hfa) 4 puff Q4H RESP THERAPY INH Last administered on 03/09/19 08:52; Admin Dose 4 PUFF; Start 03/07/19 at 13:00 Ipratropium [place] (Atrovent Hfa) 4 puff Q4H RESP THERAPY INH Last administered on 03/09/19 08:52; Admin Dose 4 PUFF; Start 03/07/19 at 13:00 Methylprednisolone Sodium Succinate (Solu-Medrol) 40 mg Q6 IV Last administered on 03/09/19 06:04; Admin Dose 40 MG; Start 03/07/19 at 12:00 Piperacillin Sod/ Tazobactam Sod 100 ml @ 200 mls/hr Q6 IVPB Last administered on 03/09/19 06:02; Admin Dose 200 MLS/HR; Start 03/07/19 at 12:00 Insulin Human NPH (Humulin N) 6 unit Q6 SC Last administered on 03/09/19 06:05; Admin Dose 6 UNIT; Start 03/07/19 at 18:00 Sodium Chloride 1,000 ml @ 80 mls/hr [id number] IV Last administered on 03/09/19 05:18; Admin Dose 80 MLS/HR; Start 03/07/19 at 22:00 WALLACE COBB March 09, 2019 12:04
--- NOTE | 2019-03-09 13:42 | CONS ---
Assessment/Plan Assessment/Plan Hospital Course (Demo Recall) Acute respiratory failure with hypoxia/hypercapnia: Initially due to severe COPD exacerbation with PCO2 160 requiring intubation but CXR post intubation shows a large infiltrate which is likely due to aspiration. I do not think he has CHF at this time NSTEMI: mild trops 0.2 x 3. Trend does not suggest ACS but rather type II in setting of above. Will need cardiac eval including echo and eventually either cath or stress testing PNA: likely aspiration as not present on initial CXR. Either happened when he was altered from the hypercapnia or during intubation COPD with severe exacerbation Active tobacco abuse DM HTN -resume on amlodipine 10mg daily, resume additional anti-hypertensive medications as neeed -continue ASA, lipitor -echocardiogram showed normal LVEF 60% -steroids per pulm/primary teams Consultation Date/Type/Reason Admit Date/Time March 06, 2019 at 23:13 Initial Consult Date 03/07/19 Type of Consult Cardiology Date/Time of Note DATE: 03/09/19 TIME: 13:40 24 HR Interval Summary Free Text/Dictation Remains intubated and on mechanical ventilation. Blood pressures elevated. Detailed Summary Additional Comments Unable to obtain review of systems, patient is intubated. Exam/Review of Systems Vital Signs Vitals Vital Signs Date Temp Pulse Resp B/P (MAP) Pulse Ox O2 O2 Flow FiO2 Time Delivery Rate 03/09/19 66 12:00 03/09/19 24 94 65 11:00 03/09/19 142/80 10:30 (100) 03/09/19 Mechanical 10:00 Ventilator 03/09/19 98.8 08:00 03/07/19 15.0 08:00 Intake and Output 03/08/19 03/08/19 03/09/19 1515:00 23:00 07:00 IntakeIntake Total 664 ml 909.94 ml 1090.06 ml OutputOutput Total 410 ml 400 ml 385 ml BalanceBalance 254 ml 509.94 ml 705.06 ml Exam Exam Constitutional: No alert (sedated) Head: normocephalic, atraumatic ENMT: intubated Neck: supple; No jvd Respiratory: diminished breath sounds; No clear to auscultation Cardiovascular: regular rate and rhythm; No edema, No systolic murmur Gastrointestinal: soft, non-tender, distended (mild) Musculoskeletal: No nl extremities to inspection Neurological: No nl mental status, No nl speech Labs Result Diagram: 03/09/19 0446 03/09/19 0446 Results 24hrs Laboratory Tests Test 03/08/19 14:14 03/08/19 16:43 03/08/19 17:59 03/08/19 20:13 Bedside Glucose 143 147 156 181 Test 03/08/19 21:18 03/09/19 00:03 03/09/19 02:05 03/09/19 04:16 Bedside Glucose 171 169 170 197 Test 03/09/19 04:46 03/09/19 05:15 03/09/19 06:11 03/09/19 07:00 White Blood Count 7.1 Red Blood Count 5.53 Hemoglobin 16.1 Hematocrit 51.4 Mean Corpuscular 92.9 Volume Mean Corpuscular 29.1 Hemoglobin Mean Corpuscular 31.3 L Hemoglobin Concen t Red Cell 17.5 H Distribution Width Platelet Count 233 Mean Platelet 10.8 H Volume Immature 0.600 H Granulocytes % Neutrophils % 86.1 H Lymphocytes % 8.0 L Monocytes % 5.3 Eosinophils % 0.0 Basophils % 0.0 Nucleated Red 0.0 Blood Cells % Immature 0.040 H Granulocytes # Neutrophils # 6.1 Lymphocytes # 0.6 L Monocytes # 0.4 Eosinophils # 0.0 Basophils # 0.0 Nucleated Red 0.0 Blood Cells # Sodium Level 144 Potassium Level 3.6 Chloride Level 107 Carbon Dioxide 31 Level Anion Gap 6 Blood Urea 34 H Nitrogen Creatinine 0.70 Est Glomerular Filtrat Rate mL/min Glucose Level 218 Calcium Level 8.3 L Phosphorus Level 3.8 Magnesium Level 2.3 Total Bilirubin 0.4 Direct Bilirubin 0.00 Indirect 0.4 Bilirubin Aspartate Amino 17 Transf (AST/SGOT) Alanine 27 Aminotransferase (ALT/SGPT) Alkaline 53 Phosphatase Total Protein 6.1 Albumin 3.0 L Globulin 3.10 Albumin/Globulin 0.96 Ratio Bedside Glucose 210 169 162 Blood Gas Blood arterial Specimen Source Arterial Blood 03/09/2019 8:10:4 Date Drawn 5 AM Arterial Blood pH 7.469 H (Temp corrected) Arterial Blood 38.4 pCO2 (Temp correct) Arterial Blood 64.8 L pO2 (Temp corrected) Arterial Blood 27.3 H HCO3 Arterial Blood 3.6 H Base Excess Arterial Blood 92.8 L Oxygen Saturation Ivan Test ACCEPTAB Arterial Blood Right Radial Gas Puncture Site Arterial 0.4 Blood Carboxyhemo globin Arterial Blood 0.2 Methemoglobin Blood Gas A-a O2 356.9 H Differential Oxyhemoglobin 92.2 L Percent Blood Gas 37.0 Temperature Blood Gas 24.0 Respiration Rate Blood Gas Actual 24 Respiration Rate Blood Gas VENT - AC Modality FiO2 65.0 Blood Gas Tidal 550.0 Volume Blood Gas Low 5.0 PEEP Setting Blood Gas DT Notified Whom Blood Gas 03/09/2019 8:40:3 Notified Time 8 AM Test 03/09/19 09:11 03/09/19 11:14 03/09/19 12:28 Bedside Glucose 176 167 194 Medications Medications Current Medications IV Flush (NS 3 ml) 3 ml PER PROTOCOL IV ; Start 03/06/19 at 23:30 Aspirin (Halfprin) 81 mg DAILY PO Last administered on 03/09/19at 09:12; Admin Dose 81 MG; Start 03/07/19 at 09:00 Levothyroxine Sodium (Synthroid) 200 mcg DAILY@0600 PO Last administered on 03/09/19at 06:18; Admin Dose 200 MCG; Start 03/07/19 at 06:00 Fluticasone/ Vilanterol (Breo Ellipta 200-25 Mcg Inh) 1 inh DAILY INH ; Start 03/07/19 at 09:00 Atorvastatin Calcium (Lipitor) 80 mg DAILY@21 PO Last administered on 03/08/19at 21:16; Admin Dose 80 MG; Start 03/07/19 at 21:00 Hydralazine HCl (Apresoline) 10 mg Q4H PRN IV ELEVATED SYSTOLIC BP; Start 03/07/19 at 03:00 Nicotine (Nicoderm 21 Mg/ 24hr) 1 patch DAILY TRANSDERM Last administered on 03/09/19at 09:13; Admin Dose 1 PATCH; Start 03/07/19 at 03:00 Eye Lubricant (Artificial Tears Oph) 2 drop Q6H PRN BOTH EYES DRY EYES; Start 03/07/19 at 03:00 Miscellaneous Information 1 ea NOTE XX ; Start 03/07/19 at 03:00 Glucose (Glutose) 15 gm Q15M PRN PO DECREASED GLUCOSE; Start 03/07/19 at 03:00 Glucose (Glutose) 22.5 gm Q15M PRN PO DECREASED GLUCOSE; Start 03/07/19 at 03:00 Dextrose (D50w Syringe) 25 ml Q15M PRN IV DECREASED GLUCOSE; Start 03/07/19 at 03:00 Dextrose (D50w Syringe) 50 ml Q15M PRN IV DECREASED GLUCOSE; Start 03/07/19 at 03:00 Glucagon (Glucagen) 1 mg Q15M PRN IM DECREASED GLUCOSE; Start 03/07/19 at 03:00 Glucose (Glutose) 15 gm Q15M PRN BUCCAL DECREASED GLUCOSE; Start 03/07/19 at 03:00 Insulin Glargine (Lantus) 10 units DAILY@0800 SC ; Start 03/07/19 at 08:00; Status Hold Insulin Aspart (Novolog Insulin Pen) NOVOLOG *MODERATE* ALGORI... Q4 SC ; Start 03/07/19 at 09:00; Status Hold Propofol 100 ml @ 2.547 mls/ hr PER PROTOCOL IV Last administered on 03/09/19at 12:36; Admin Dose 25.47 MLS/HR; Start 03/07/19 at 08:30 Norepinephrine 250 ml @ 1.875 mls/ hr PER PROTOCOL IV ; Start 03/07/19 at 09:00 Insulin Human Regular 100 unit/ Sodium Chloride 100 ml @ 0 mls/hr PER PROTOCOL IV Last administered on 03/08/19at 18:37; Admin Dose 3 MLS/HR; Start 03/07/19 at 09:30 Heparin Sodium (Porcine) (Heparin (5000 Units/1ml)) 5,000 unit Q8 SC Last administered on 03/09/19 06:06; Admin Dose 5,000 UNIT; Start 03/07/19 at 14:00 Famotidine (Pepcid Iv) 20 mg BID IV Last administered on 03/09/19at 09:12; Admin Dose 20 MG; Start 03/07/19 at 09:30 Diagnostic Test (Pha) (Accu-Chek) 1 ea Q1H XX Last administered on 03/09/19at 12:37; Admin Dose 1 EA; Start 03/07/19 at 10:00 Albuterol (Ventolin Hfa) 4 puff Q4H RESP THERAPY INH Last administered on 03/09/19at 08:52; Admin Dose 4 PUFF; Start 03/07/19 at 13:00 Ipratropium [place] (Atrovent Hfa) 4 puff Q4H RESP THERAPY INH Last administered on 03/09/19 08:52; Admin Dose 4 PUFF; Start 03/07/19 at 13:00 Methylprednisolone Sodium Succinate (Solu-Medrol) 40 mg Q6 IV Last administered on 03/09/19 12:34; Admin Dose 40 MG; Start 03/07/19 at 12:00 Piperacillin Sod/ Tazobactam Sod 100 ml @ 200 mls/hr Q6 IVPB Last administered on 03/09/19 12:30; Admin Dose 200 MLS/HR; Start 03/07/19 at 12:00 Insulin Human NPH (Humulin N) 6 unit Q6 SC Last administered on 03/09/19 12:35; Admin Dose 6 UNIT; Start 03/07/19 at 18:00 Sodium Chloride 1,000 ml @ 80 mls/hr [id number] IV Last administered on 03/09/19 05:18; Admin Dose 80 MLS/HR; Start 03/07/19 at 22:00 KIEL KAMARA MD March 09, 2019 13:42
[2019-03-09] MEDS ORDERED: hydrALAzine 20 MG INJ IV PRN (14:00)
[2019-03-09] MEDS: AMLODIPINE 10 MG TAB NGT SCH (14:25)
[2019-03-09] MEDS: INSULIN HUMAN REGULAR 100 UNIT in SOD CHLORIDE 0.9% 99 ML IV SCH (14:27)
[2019-03-09] MEDS: ATORVASTATIN 80 MG TAB PO SCH (20:56)
[2019-03-10] VITALS (39 sets, daily range): BP systolic 123–182; BP diastolic 66–120; PULSE 51–92; RESP 12–35
[2019-03-10] MEDS: ACCU-CHEK XX SCH ×15 (01:00→18:11)
[2019-03-10] MEDS: ALBUTEROL HFA 8 GM INHALER INH SCH ×3 (01:02→12:04)
[2019-03-10] MEDS: IPRATROPIUM (HFA) 12.9 GM INHALER INH SCH ×3 (01:02→12:04)
[2019-03-10] MEDS: PROPOFOL 100 ML IV SCH ×2 (03:12→07:07)
[2019-03-10] MEDS: LEVOTHYROXINE 100 MCG TAB PO SCH (05:52)
[2019-03-10] MEDS: PIPER-TAZO 3.375 GM IV (PMX) 100 ML IVPB SCH ×3 (05:52→18:04)
[2019-03-10] MEDS: METHYLPREDNISOLONE 40 MG INJ IV SCH ×2 (05:55→20:45)
[2019-03-10] MEDS: NPH, HUMAN INSULIN ISOPHANE 3ML VIAL SC SCH ×3 (05:57→20:51)
[2019-03-10] MEDS: HEPARIN 5,000 UNIT/1 ML VIAL SC SCH ×3 (06:04→21:35)
--- NOTE | 2019-03-10 06:59 | CONS ---
Assessment/Plan Assessment/Plan Hospital Course (Demo Recall) Acute respiratory failure with hypoxia/hypercapnia: Initially due to severe COPD exacerbation with PCO2 160 requiring intubation but CXR post intubation shows a large infiltrate which is likely due to aspiration. No CHF at this time NSTEMI: mild trops 0.2 x 3. Trend does not suggest ACS but rather type II in setting of above. Echo with preserved EF. Plan for stress testing inpt vs outpt depending on clinical progress and pt willingness to be compliant PNA: likely aspiration as not present on initial CXR. Either happened when he was altered from the hypercapnia or during intubation COPD with severe exacerbation Active tobacco abuse DM HTN -continue ASA, lipitor -amlodipine 10mg -steroids per pulm/primary teams Consultation Date/Type/Reason Admit Date/Time March 06, 2019 at 23:13 Initial Consult Date 03/07/19 Type of Consult Cardiology Date/Time of Note DATE: 03/10/19 TIME: 06:57 24 HR Interval Summary Free Text/Dictation Overall improving. FiO2 50%. Son at bedside. Exam/Review of Systems Vital Signs Vitals Vital Signs Date Temp Pulse Resp B/P (MAP) Pulse Ox O2 O2 Flow FiO2 Time Delivery Rate 03/10/19 24 134/75 95 06:30 (94) 03/10/19 54 Mechanical 06:00 Ventilator 03/10/19 50 05:02 03/10/19 98.8 04:00 03/07/19 15.0 08:00 Intake and Output 03/09/19 03/09/19 03/10/19 1515:00 23:00 07:00 IntakeIntake Total 1286 ml 1319.35 ml 1389.29 ml OutputOutput Total 490 ml 535 ml 515 ml BalanceBalance 796 ml 784.35 ml 874.29 ml Exam Constitutional: No alert Head: normocephalic, atraumatic ENMT: intubated Neck: supple; No jvd Respiratory: diminished breath sounds; No clear to auscultation Cardiovascular: regular rate and rhythm; No edema, No systolic murmur Gastrointestinal: soft, non-tender; No distended Musculoskeletal: No nl extremities to inspection Neurological: No nl mental status Skin: No rash or lesions Labs Result Diagram: 03/10/19 0510 03/10/19 0510 Results 24hrs Laboratory Tests Test 03/09/19 07:00 03/09/19 09:11 03/09/19 11:14 03/09/19 12:28 Blood Gas Blood arterial Specimen Source Arterial Blood 03/09/2019 8:10: Date Drawn 45 AM Arterial Blood 7.469 H pH (Temp corrected) Arterial Blood 38.4 pCO2 (Temp correct) Arterial Blood 64.8 L pO2 (Temp corrected) Arterial Blood 27.3 H HCO3 Arterial Blood 3.6 H Base Excess Arterial Blood 92.8 L Oxygen Saturatio n Ivan Test ACCEPTAB Arterial Blood Right Radial Gas Puncture Site Arterial 0.4 Blood Carboxyhem oglobin Arterial Blood 0.2 Methemoglobin Blood Gas A-a O2 356.9 H Differential Oxyhemoglobin 92.2 L Percent Blood Gas 37.0 Temperature Blood Gas 24.0 Respiration Rate Blood Gas Actual 24 Respiration Rate Blood Gas VENT - AC Modality FiO2 65.0 Blood Gas Tidal 550.0 Volume Blood Gas Low 5.0 PEEP Setting Blood Gas DT Notified Whom Blood Gas 03/09/2019 8:40: Notified Time 38 AM Bedside Glucose 162 176 167 194 Test 03/09/19 14:20 03/09/19 15:38 03/09/19 18:08 03/09/19 20:02 Bedside Glucose 189 176 167 172 Test 03/09/19 21:58 03/09/19 23:01 03/09/19 23:52 03/10/19 02:13 Bedside Glucose 181 153 147 154 Test 03/10/19 04:05 03/10/19 05:10 03/10/19 05:54 03/10/19 06:25 Bedside Glucose 132 149 White Blood 7.8 Count Red Blood Count 5.76 Hemoglobin 16.6 Hematocrit 52.8 H Mean Corpuscular 91.7 Volume Mean Corpuscular 28.8 L Hemoglobin Mean Corpuscular 31.4 L Hemoglobin Key nt Red Cell 18.2 H Distribution Width Platelet Count 219 Mean Platelet 10.8 H Volume Immature 0.500 H Granulocytes % Neutrophils % 86.7 H Lymphocytes % 6.7 L Monocytes % 6.1 Eosinophils % 0.0 Basophils % 0.0 Nucleated Red 0.0 Blood Cells % Immature 0.040 H Granulocytes # Neutrophils # 6.8 Lymphocytes # 0.5 L Monocytes # 0.5 Eosinophils # 0.0 Basophils # 0.0 Nucleated Red 0.0 Blood Cells # Sodium Level 144 Potassium Level 3.7 Chloride Level 110 Carbon Dioxide 28 Level Anion Gap 6 Blood Urea 21 #H Nitrogen Creatinine 0.61 Est Glomerular Filtrat Rate mL/min Glucose Level 149 # Calcium Level 8.8 Phosphorus Level 4.6 Magnesium Level 2.3 Total Bilirubin 0.6 Direct Bilirubin 0.00 Indirect 0.6 Bilirubin Aspartate Amino 18 Transf (AST/SGOT ) Alanine 24 Aminotransferase (ALT/SGPT) Alkaline 50 Phosphatase Total Protein 6.1 Albumin 3.1 L Globulin 3.00 Albumin/Globulin 1.03 Ratio Lab Scanned REFERENCE LAB Report Medications Medications Current Medications IV Flush (NS 3 ml) 3 ml PER PROTOCOL IV ; Start 03/06/19 at 23:30 Aspirin (Halfprin) 81 mg DAILY PO Last administered on 03/09/19at 09:12; Admin Dose 81 MG; Start 03/07/19 at 09:00 Levothyroxine Sodium (Synthroid) 200 mcg DAILY@0600 PO Last administered on 03/10/19at 05:52; Admin Dose 200 MCG; Start 03/07/19 at 06:00 Fluticasone/ Vilanterol (Breo Ellipta 200-25 Mcg Inh) 1 inh DAILY INH ; Start 03/07/19 at 09:00 Atorvastatin Calcium (Lipitor) 80 mg DAILY@21 PO Last administered on 03/09/19at 20:56; Admin Dose 80 MG; Start 03/07/19 at 21:00 Hydralazine HCl (Apresoline) 10 mg Q4H PRN IV ELEVATED SYSTOLIC BP; Start 03/07/19 at 03:00 Nicotine (Nicoderm 21 Mg/ 24hr) 1 patch DAILY TRANSDERM Last administered on 03/09/19at 09:13; Admin Dose 1 PATCH; Start 03/07/19 at 03:00 Eye Lubricant (Artificial Tears Oph) 2 drop Q6H PRN BOTH EYES DRY EYES; Start 03/07/19 at 03:00 Miscellaneous Information 1 ea NOTE XX ; Start 03/07/19 at 03:00 Glucose (Glutose) 15 gm Q15M PRN PO DECREASED GLUCOSE; Start 03/07/19 at 03:00 Glucose (Glutose) 22.5 gm Q15M PRN PO DECREASED GLUCOSE; Start 03/07/19 at 03:00 Dextrose (D50w Syringe) 25 ml Q15M PRN IV DECREASED GLUCOSE; Start 03/07/19 at 03:00 Dextrose (D50w Syringe) 50 ml Q15M PRN IV DECREASED GLUCOSE; Start 03/07/19 at 03:00 Glucagon (Glucagen) 1 mg Q15M PRN IM DECREASED GLUCOSE; Start 03/07/19 at 03:00 Glucose (Glutose) 15 gm Q15M PRN BUCCAL DECREASED GLUCOSE; Start 03/07/19 at 03:00 Insulin Glargine (Lantus) 10 units DAILY@0800 SC ; Start 03/07/19 at 08:00; Status Hold Insulin Aspart (Novolog Insulin Pen) NOVOLOG *MODERATE* ALGORI... Q4 SC ; Start 03/07/19 at 09:00; Status Hold Propofol 100 ml @ 2.547 mls/ hr PER PROTOCOL IV Last administered on 03/10/19at 03:12; Admin Dose 25.47 MLS/HR; Start 03/07/19 at 08:30 Norepinephrine 250 ml @ 1.875 mls/ hr PER PROTOCOL IV ; Start 03/07/19 at 09:00 Insulin Human Regular 100 unit/ Sodium Chloride 100 ml @ 0 mls/hr PER PROTOCOL IV Last administered on 03/09/19at 14:27; Admin Dose 5 MLS/HR; Start 03/07/19 at 09:30 Heparin Sodium (Porcine) (Heparin (5000 Units/1ml)) 5,000 unit Q8 SC Last administered on 03/10/19at 06:04; Admin Dose 5,000 UNIT; Start 03/07/19 at 14:00 Famotidine (Pepcid Iv) 20 mg BID IV Last administered on 03/09/19at 20:56; Admin Dose 20 MG; Start 03/07/19 at 09:30 Diagnostic Test (Pha) (Accu-Chek) 1 ea Q1H XX Last administered on 03/10/19at 06:05; Admin Dose 1 EA; Start 03/07/19 at 10:00 Albuterol (Ventolin Hfa) 4 puff Q4H RESP THERAPY INH Last administered on 03/10/19at 05:02; Admin Dose 4 PUFF; Start 03/07/19 at 13:00 Ipratropium [place] (Atrovent Hfa) 4 puff Q4H RESP THERAPY INH Last administered on 03/10/19at 05:02; Admin Dose 4 PUFF; Start 03/07/19 at 13:00 Methylprednisolone Sodium Succinate (Solu-Medrol) 40 mg Q6 IV Last administered on 03/10/19 05:55; Admin Dose 40 MG; Start 03/07/19 at 12:00 Piperacillin Sod/ Tazobactam Sod 100 ml @ 200 mls/hr Q6 IVPB Last administered on 03/10/19 05:52; Admin Dose 200 MLS/HR; Start 03/07/19 at 12:00 Insulin Human NPH (Humulin N) 6 unit Q6 SC Last administered on 03/10/19 05:57; Admin Dose 6 UNIT; Start 03/07/19 at 18:00 Sodium Chloride 1,000 ml @ 80 mls/hr [id number] IV Last administered on 03/09/19at 20:13; Admin Dose 80 MLS/HR; Start 03/07/19 at 22:00 Amlodipine Besylate (Norvasc) 10 mg DAILY NGT Last administered on 03/09/19at 14:25; Admin Dose 10 MG; Start 03/09/19 at 14:00 Hydralazine HCl (Apresoline) 10 mg Q4H PRN IV SBP>160 Last administered on 03/09/19at 15:50; Admin Dose 10 MG; Start 03/09/19 at 14:00 RADU VIVAS March 10, 2019 06:59
[2019-03-10] MEDS: FLUTICASONE/VILANTEROL 200-25 INH DEVICE INH SCH (08:16)
[2019-03-10] MEDS: FAMOTIDINE 20 MG INJ IV SCH ×2 (08:17→20:43)
[2019-03-10] MEDS: NICOTINE (21 MG/24 HR) PATCH TRANSDERM SCH (08:17)
[2019-03-10] MEDS: AMLODIPINE 10 MG TAB NGT SCH (08:17)
[2019-03-10] MEDS: ASPIRIN (EC) 81 MG TAB PO SCH (08:17)
--- NOTE | 2019-03-10 09:41 | CONS ---
Assessment/Plan Assessment/Plan Problems: (1) Acute hypercapnic respiratory failure Onset Date: ~ 03/06/2019 Status: Acute Comment: As per pulmonary. He has been able to wean the wean down down his FiO2 to 50% but this is going to be a tricky process given his underlying severe lung disease. If we successfully get him off the ventilator it will be even more tricky due to his severe recalcitrant noncooperation (2) Right lower lobe pneumonia Status: Acute Comment: On antibiotics at this time Qualifiers: Pneumonia type: aspiration pneumonia Aspiration pneumonia type: unspecified Qualified Codes: J69.0 - Pneumonitis due to inhalation of food and vomit (3) COPD with acute exacerbation Status: Chronic Comment: Presently on steroids. When he comes off the ventilator use of Spiriva, Montella cast, and Breo. Consideration for Daliresp as well. (4) Tobacco abuse Status: Chronic Comment: He is sedated so we cannot re-social services counselor him. (5) Essential hypertension Status: Chronic Comment: Adequate control though would be in more favor of an angiotensin II re ceptor daniel and amlodipine in the setting (6) Grade I diastolic dysfunction Status: Chronic Comment: Adequate blood pressure control (7) Diabetes mellitus type 2 in nonobese Status: Chronic Comment: The family reports that he was only intermittently taking his sugars but was doing fingersticks. He does not want to take medicines because this is a relatively recent diagnosis within 2 years. I may try adding in pioglitazone and low-dose metformin to his regimen and backing off on his insulin drip. Remains on NPH simultaneously with a steroid dosing to help with the steroids in the setting (8) Secondary polycythemia Status: Chronic Comment: Improved however this is still a significant issue (9) Noncompliance w/medication treatment due to intermit use of medication Status: Chronic Comment: Trying, with medications the patient is willing to take. Consultation Date/Type/Reason Admit Date/Time March 06, 2019 at 23:13 Initial Consult Date 03/07/19 Type of Consult Endocrinology Reason for Consultation Diabetes mellitus type 2 with inadequate control; hypothyroidism with adequate control; advanced COPD with smoking abuse; aspiration pneumonia; respiratory failure; medical noncompliance Requesting Provider: SANDIE ULGO Date/Time of Note DATE: 03/10/19 TIME: 09:35 24 HR Interval Summary Free Text/Dictation Patient remains intubated and sedated at this time. Discussion with the family. They informed that he is mandaeism about taking his thyroid medications every day, however he does not take it is sugar medications, cholesterol medications, or respiratory medications due to the concept that they do not really help anyway. Subjective hx not possible: pt non-verbal, pt critical status Exam/Review of Systems Exam Vitals Vital Signs Date Temp Pulse Resp B/P (MAP) Pulse Ox O2 O2 Flow FiO2 Time Delivery Rate 03/10/19 57 08:00 03/10/19 24 132/71 92 Mechanical 07:00 (91) Ventilator 03/10/19 50 05:02 03/10/19 98.8 04:00 03/07/19 15.0 08:00 Intake and Output 03/09/19 03/09/19 03/10/19 1515:00 23:00 07:00 IntakeIntake Total 1286 ml 1319.35 ml 1499.76 ml OutputOutput Total 490 ml 535 ml 515 ml BalanceBalance 796 ml 784.35 ml 984.76 ml Constitutional: non-verbal ENMT: intubated, other (NG tube in place) Gastrointestinal: soft, nl liver, spleen, non-tender Results Result Diagram: 03/10/19 0510 03/10/19 0510 Results 24hrs Laboratory Tests Test 03/09/19 11:14 03/09/19 12:28 03/09/19 14:20 03/09/19 15:38 Bedside Glucose 167 194 189 176 Test 03/09/19 18:08 03/09/19 20:02 03/09/19 21:58 03/09/19 23:01 Bedside Glucose 167 172 181 153 Test 03/09/19 23:52 03/10/19 02:13 03/10/19 04:05 03/10/19 05:10 Bedside Glucose 147 154 132 White Blood 7.8 Count Red Blood Count 5.76 Hemoglobin 16.6 Hematocrit 52.8 H Mean Corpuscular 91.7 Volume Mean Corpuscular 28.8 L Hemoglobin Mean Corpuscular 31.4 L Hemoglobin Key nt Red Cell 18.2 H Distribution Width Platelet Count 219 Mean Platelet 10.8 H Volume Immature 0.500 H Granulocytes % Neutrophils % 86.7 H Lymphocytes % 6.7 L Monocytes % 6.1 Eosinophils % 0.0 Basophils % 0.0 Nucleated Red 0.0 Blood Cells % Immature 0.040 H Granulocytes # Neutrophils # 6.8 Lymphocytes # 0.5 L Monocytes # 0.5 Eosinophils # 0.0 Basophils # 0.0 Nucleated Red 0.0 Blood Cells # Sodium Level 144 Potassium Level 3.7 Chloride Level 110 Carbon Dioxide 28 Level Anion Gap 6 Blood Urea 21 #H Nitrogen Creatinine 0.61 Est Glomerular Filtrat Rate mL/min Glucose Level 149 # Calcium Level 8.8 Phosphorus Level 4.6 Magnesium Level 2.3 Total Bilirubin 0.6 Direct Bilirubin 0.00 Indirect 0.6 Bilirubin Aspartate Amino 18 Transf (AST/SGOT ) Alanine 24 Aminotransferase (ALT/SGPT) Alkaline 50 Phosphatase Total Protein 6.1 Albumin 3.1 L Globulin 3.00 Albumin/Globulin 1.03 Ratio Test 03/10/19 05:54 03/10/19 06:25 03/10/19 07:00 03/10/19 08:15 Bedside Glucose 149 159 Lab Scanned REFERENCE LAB Report Blood Gas Blood arterial Specimen Source Arterial Blood 03/10/2019 7:00: Date Drawn 11 AM Arterial Blood 7.502 H pH (Temp corrected) Arterial Blood 37.9 pCO2 (Temp correct) Arterial Blood 69.9 L pO2 (Temp corrected) Arterial Blood 29.0 H HCO3 Arterial Blood 5.7 H Base Excess Arterial Blood 93.5 L Oxygen Saturatio n Ivan Test ACCEPTAB Arterial Blood Right Radial Gas Puncture Site Arterial 0.2 Blood Carboxyhem oglobin Arterial Blood 0.3 Methemoglobin Blood Gas A-a O2 244.0 H Differential Oxyhemoglobin 93.0 Percent Blood Gas 37.0 Temperature Blood Gas 24.0 Respiration Rate Blood Gas Actual 24 Respiration Rate Blood Gas VENT - AC Modality FiO2 50.0 Blood Gas Tidal 550.0 Volume Blood Gas Low 5.0 PEEP Setting Blood Gas TM Notified Whom Blood Gas 03/10/2019 7:42: Notified Time 47 AM Medications Medication Current Medications IV Flush (NS 3 ml) 3 ml PER PROTOCOL IV ; Start 03/06/19 at 23:30 Aspirin (Halfprin) 81 mg DAILY PO Last administered on 03/10/19at 08:17; Admin Dose 81 MG; Start 03/07/19 at 09:00 Levothyroxine Sodium (Synthroid) 200 mcg DAILY@0600 PO Last administered on 03/10/19at 05:52; Admin Dose 200 MCG; Start 03/07/19 at 06:00 Fluticasone/ Vilanterol (Breo Ellipta 200-25 Mcg Inh) 1 inh DAILY INH ; Start 03/07/19 at 09:00 Atorvastatin Calcium (Lipitor) 80 mg DAILY@21 PO Last administered on 03/09/19at 20:56; Admin Dose 80 MG; Start 03/07/19 at 21:00 Hydralazine HCl (Apresoline) 10 mg Q4H PRN IV ELEVATED SYSTOLIC BP; Start 03/07/19 at 03:00 Nicotine (Nicoderm 21 Mg/ 24hr) 1 patch DAILY TRANSDERM Last administered on 03/10/19at 08:17; Admin Dose 1 PATCH; Start 03/07/19 at 03:00 Eye Lubricant (Artificial Tears Oph) 2 drop Q6H PRN BOTH EYES DRY EYES; Start 03/07/19 at 03:00 Miscellaneous Information 1 ea NOTE XX ; Start 03/07/19 at 03:00 Glucose (Glutose) 15 gm Q15M PRN PO DECREASED GLUCOSE; Start 03/07/19 at 03:00 Glucose (Glutose) 22.5 gm Q15M PRN PO DECREASED GLUCOSE; Start 03/07/19 at 03:00 Dextrose (D50w Syringe) 25 ml Q15M PRN IV DECREASED GLUCOSE; Start 03/07/19 at 03:00 Dextrose (D50w Syringe) 50 ml Q15M PRN IV DECREASED GLUCOSE; Start 03/07/19 at 03:00 Glucagon (Glucagen) 1 mg Q15M PRN IM DECREASED GLUCOSE; Start 03/07/19 at 03:00 Glucose (Glutose) 15 gm Q15M PRN BUCCAL DECREASED GLUCOSE; Start 03/07/19 at 03:00 Insulin Glargine (Lantus) 10 units DAILY@0800 SC ; Start 03/07/19 at 08:00; Status Hold Insulin Aspart (Novolog Insulin Pen) NOVOLOG *MODERATE* ALGORI... Q4 SC ; Start 03/07/19 at 09:00; Status Hold Propofol 100 ml @ 2.547 mls/ hr PER PROTOCOL IV Last administered on 03/10/19at 07:07; Admin Dose 25.47 MLS/HR; Start 03/07/19 at 08:30 Norepinephrine 250 ml @ 1.875 mls/ hr PER PROTOCOL IV ; Start 03/07/19 at 09:00 Insulin Human Regular 100 unit/ Sodium Chloride 100 ml @ 0 mls/hr PER PROTOCOL IV Last administered on 03/09/19at 14:27; Admin Dose 5 MLS/HR; Start 03/07/19 at 09:30 Heparin Sodium (Porcine) (Heparin (5000 Units/1ml)) 5,000 unit Q8 SC Last administered on 03/10/19 06:04; Admin Dose 5,000 UNIT; Start 03/07/19 at 14:00 Famotidine (Pepcid Iv) 20 mg BID IV Last administered on 03/10/19 08:17; Admin Dose 20 MG; Start 03/07/19 at 09:30 Diagnostic Test (Pha) (Accu-Chek) 1 ea Q1H XX Last administered on 03/10/19 08:16; Admin Dose 1 EA; Start 03/07/19 at 10:00 Albuterol (Ventolin Hfa) 4 puff Q4H RESP THERAPY INH Last administered on 03/10/19 05:02; Admin Dose 4 PUFF; Start 03/07/19 at 13:00 Ipratropium [place] (Atrovent Hfa) 4 puff Q4H RESP THERAPY INH Last administered on 03/10/19 05:02; Admin Dose 4 PUFF; Start 03/07/19 at 13:00 Methylprednisolone Sodium Succinate (Solu-Medrol) 40 mg Q6 IV Last administered on 03/10/19 05:55; Admin Dose 40 MG; Start 03/07/19 at 12:00 Piperacillin Sod/ Tazobactam Sod 100 ml @ 200 mls/hr Q6 IVPB Last administered on 03/10/19 05:52; Admin Dose 200 MLS/HR; Start 03/07/19 at 12:00 Insulin Human NPH (Humulin N) 6 unit Q6 SC Last administered on 03/10/19 05:57; Admin Dose 6 UNIT; Start 03/07/19 at 18:00 Sodium Chloride 1,000 ml @ 80 mls/hr [id number] IV Last administered on 03/09/19at 20:13; Admin Dose 80 MLS/HR; Start 03/07/19 at 22:00 Amlodipine Besylate (Norvasc) 10 mg DAILY NGT Last administered on 03/10/19at 08:17; Admin Dose 10 MG; Start 03/09/19 at 14:00 Hydralazine HCl (Apresoline) 10 mg Q4H PRN IV SBP>160 Last administered on 03/09/19at 15:50; Admin Dose 10 MG; Start 03/09/19 at 14:00 Metformin HCl (Glucophage) 500 mg BID WITH MEALS NGT ; Start 03/10/19 at 09:30 LUIS ENRIQUE ARCOS MD March 10, 2019 09:41
--- NOTE | 2019-03-10 09:42 | CONS ---
Consult Date/Type/Reason Admit Date/Time March 06, 2019 at 23:13 Initial Consult Date 03/07/19 Type of Consult Pulmonary Requesting Provider: SANDIE LUGO Date/Time of Note DATE: 03/10/19 TIME: 09:41 Subjective Patient remained stable on mechanical ventilation. Opens eyes follows simple commands. Currently hemodynamically stable. FiO2 of 50% chest x-ray shows mild pulmonary edema right lower lobe infiltrate somewhat improved. Objective Vital Signs Date Temp Pulse Resp B/P (MAP) Pulse Ox O2 O2 Flow FiO2 Time Delivery Rate 03/10/19 57 08:00 03/10/19 24 132/71 92 Mechanical 07:00 (91) Ventilator 03/10/19 50 05:02 03/10/19 98.8 04:00 03/07/19 15.0 08:00 Intake and Output 03/09/19 03/09/19 03/10/19 1414:59 22:59 06:59 IntakeIntake Total 1340 ml 1234.88 ml 1533.76 ml OutputOutput Total 455 ml 540 ml 580 ml BalanceBalance 885 ml 694.88 ml 953.76 ml Exam GENERAL: VITAL SIGNS: per chart NECK: Supple. No JVD or lymphadenopathy. CARDIAC EXAM: S1, S2. No added sounds or murmurs. CHEST: clear bilaterally, No added sounds, rales or wheezes ABDOMEN: Soft, nontender. No guarding or rebound. EXTREMITIES: No cyanosis, clubbing or edema. NEUROLOGIC: Generalized weakness. No focal deficits. Well-nourished well-d eveloped gentleman comfortable at rest no acute distress Vent Setting Ventilator Support Mode: AC Fraction of Inspired Oxygen pe: 50 Positive End Expiratory Pressu: 5.0 Results/Medications Result Diagram: 03/10/19 0510 03/10/19 0510 Results 24 hrs Laboratory Tests Test 03/09/19 11:14 03/09/19 12:28 03/09/19 14:20 03/09/19 15:38 Bedside Glucose 167 194 189 176 Test 03/09/19 18:08 03/09/19 20:02 03/09/19 21:58 03/09/19 23:01 Bedside Glucose 167 172 181 153 Test 03/09/19 23:52 03/10/19 02:13 03/10/19 04:05 03/10/19 05:10 Bedside Glucose 147 154 132 White Blood 7.8 Count Red Blood Count 5.76 Hemoglobin 16.6 Hematocrit 52.8 H Mean Corpuscular 91.7 Volume Mean Corpuscular 28.8 L Hemoglobin Mean Corpuscular 31.4 L Hemoglobin Key nt Red Cell 18.2 H Distribution Width Platelet Count 219 Mean Platelet 10.8 H Volume Immature 0.500 H Granulocytes % Neutrophils % 86.7 H Lymphocytes % 6.7 L Monocytes % 6.1 Eosinophils % 0.0 Basophils % 0.0 Nucleated Red 0.0 Blood Cells % Immature 0.040 H Granulocytes # Neutrophils # 6.8 Lymphocytes # 0.5 L Monocytes # 0.5 Eosinophils # 0.0 Basophils # 0.0 Nucleated Red 0.0 Blood Cells # Sodium Level 144 Potassium Level 3.7 Chloride Level 110 Carbon Dioxide 28 Level Anion Gap 6 Blood Urea 21 #H Nitrogen Creatinine 0.61 Est Glomerular Filtrat Rate mL/min Glucose Level 149 # Calcium Level 8.8 Phosphorus Level 4.6 Magnesium Level 2.3 Total Bilirubin 0.6 Direct Bilirubin 0.00 Indirect 0.6 Bilirubin Aspartate Amino 18 Transf (AST/SGOT ) Alanine 24 Aminotransferase (ALT/SGPT) Alkaline 50 Phosphatase Total Protein 6.1 Albumin 3.1 L Globulin 3.00 Albumin/Globulin 1.03 Ratio Test 03/10/19 05:54 03/10/19 06:25 03/10/19 07:00 03/10/19 08:15 Bedside Glucose 149 159 Lab Scanned REFERENCE LAB Report Blood Gas Blood arterial Specimen Source Arterial Blood 03/10/2019 7:00: Date Drawn 11 AM Arterial Blood 7.502 H pH (Temp corrected) Arterial Blood 37.9 pCO2 (Temp correct) Arterial Blood 69.9 L pO2 (Temp corrected) Arterial Blood 29.0 H HCO3 Arterial Blood 5.7 H Base Excess Arterial Blood 93.5 L Oxygen Saturatio n Ivan Test ACCEPTAB Arterial Blood Right Radial Gas Puncture Site Arterial 0.2 Blood Carboxyhem oglobin Arterial Blood 0.3 Methemoglobin Blood Gas A-a O2 244.0 H Differential Oxyhemoglobin 93.0 Percent Blood Gas 37.0 Temperature Blood Gas 24.0 Respiration Rate Blood Gas Actual 24 Respiration Rate Blood Gas VENT - AC Modality FiO2 50.0 Blood Gas Tidal 550.0 Volume Blood Gas Low 5.0 PEEP Setting Blood Gas TM Notified Whom Blood Gas 03/10/2019 7:42: Notified Time 47 AM Medications Current Medications IV Flush (NS 3 ml) 3 ml PER PROTOCOL IV ; Start 03/06/19 at 23:30 Aspirin (Halfprin) 81 mg DAILY PO Last administered on 03/10/19at 08:17; Admin Dose 81 MG; Start 03/07/19 at 09:00 Levothyroxine Sodium (Synthroid) 200 mcg DAILY@0600 PO Last administered on 03/10/19at 05:52; Admin Dose 200 MCG; Start 03/07/19 at 06:00 Fluticasone/ Vilanterol (Breo Ellipta 200-25 Mcg Inh) 1 inh DAILY INH ; Start 03/07/19 at 09:00 Atorvastatin Calcium (Lipitor) 80 mg DAILY@21 PO Last administered on 03/09/19at 20:56; Admin Dose 80 MG; Start 03/07/19 at 21:00 Hydralazine HCl (Apresoline) 10 mg Q4H PRN IV ELEVATED SYSTOLIC BP; Start 03/07/19 at 03:00 Nicotine (Nicoderm 21 Mg/ 24hr) 1 patch DAILY TRANSDERM Last administered on at 08:17; Admin Dose 1 PATCH; Start 03/07/19 at 03:00 Eye Lubricant (Artificial Tears Oph) 2 drop Q6H PRN BOTH EYES DRY EYES; Start 03/07/19 at 03:00 Miscellaneous Information 1 ea NOTE XX ; Start 03/07/19 at 03:00 Glucose (Glutose) 15 gm Q15M PRN PO DECREASED GLUCOSE; Start 03/07/19 at 03:00 Glucose (Glutose) 22.5 gm Q15M PRN PO DECREASED GLUCOSE; Start 03/07/19 at 03:00 Dextrose (D50w Syringe) 25 ml Q15M PRN IV DECREASED GLUCOSE; Start 03/07/19 at 03:00 Dextrose (D50w Syringe) 50 ml Q15M PRN IV DECREASED GLUCOSE; Start 03/07/19 at 03:00 Glucagon (Glucagen) 1 mg Q15M PRN IM DECREASED GLUCOSE; Start 03/07/19 at 03:00 Glucose (Glutose) 15 gm Q15M PRN BUCCAL DECREASED GLUCOSE; Start 03/07/19 at 03:00 Insulin Glargine (Lantus) 10 units DAILY@0800 SC ; Start 03/07/19 at 08:00; St atus Hold Insulin Aspart (Novolog Insulin Pen) NOVOLOG *MODERATE* ALGORI... Q4 SC ; Start 03/07/19 at 09:00; Status Hold Propofol 100 ml @ 2.547 mls/ hr PER PROTOCOL IV Last administered on 03/10/19 07:07; Admin Dose 25.47 MLS/HR; Start 03/07/19 at 08:30 Norepinephrine 250 ml @ 1.875 mls/ hr PER PROTOCOL IV ; Start 03/07/19 at 09:00 Insulin Human Regular 100 unit/ Sodium Chloride 100 ml @ 0 mls/hr PER PROTOCOL IV Last administered on 03/09/19at 14:27; Admin Dose 5 MLS/HR; Start 03/07/19 at 09:30 Heparin Sodium (Porcine) (Heparin (5000 Units/1ml)) 5,000 unit Q8 SC Last administered on 03/10/19at 06:04; Admin Dose 5,000 UNIT; Start 03/07/19 at 14:00 Famotidine (Pepcid Iv) 20 mg BID IV Last administered on 03/10/19 08:17; Admin Dose 20 MG; Start 03/07/19 at 09:30 Diagnostic Test (Pha) (Accu-Chek) 1 ea Q1H XX Last administered on 03/10/19 08:16; Admin Dose 1 EA; Start 03/07/19 at 10:00 Albuterol (Ventolin Hfa) 4 puff Q4H RESP THERAPY INH Last administered on 03/10/19 05:02; Admin Dose 4 PUFF; Start 03/07/19 at 13:00 Ipratropium [place] (Atrovent Hfa) 4 puff Q4H RESP THERAPY INH Last administered on 03/10/19 05:02; Admin Dose 4 PUFF; Start 03/07/19 at 13:00 Methylprednisolone Sodium Succinate (Solu-Medrol) 40 mg Q6 IV Last administered on 03/10/19 05:55; Admin Dose 40 MG; Start 03/07/19 at 12:00 Piperacillin Sod/ Tazobactam Sod 100 ml @ 200 mls/hr Q6 IVPB Last administered on 03/10/19at 05:52; Admin Dose 200 MLS/HR; Start 03/07/19 at 12:00 Insulin Human NPH (Humulin N) 6 unit Q6 SC Last administered on 03/10/19at 05:57; Admin Dose 6 UNIT; Start 03/07/19 at 18:00 Sodium Chloride 1,000 ml @ 80 mls/hr [id number] IV Last administered on 03/09/19at 20:13; Admin Dose 80 MLS/HR; Start 03/07/19 at 22:00 Amlodipine Besylate (Norvasc) 10 mg DAILY NGT Last administered on 03/10/19at 08:17; Admin Dose 10 MG; Start 03/09/19 at 14:00 Hydralazine HCl (Apresoline) 10 mg Q4H PRN IV SBP>160 Last administered on 03/09/19at 15:50; Admin Dose 10 MG; Start 03/09/19 at 14:00 Metformin HCl (Glucophage) 500 mg BID WITH MEALS NGT ; Start 03/10/19 at 09:30 Pioglitazone HCl (Actos) 15 mg DAILY NGT ; Start 03/10/19 at 10:00; Status UNV Assessment/Plan Hospital Course (Demo Recall) IMPRESSION: 1. Acute hypoxemic and hypercapnic respiratory failure, probable aspiration pneumonia during intubation for COPD exacerbation. 2. Non-ST elevation myocardial infarction, possibly type 2. 3. Underlying history of hypertension. 4. Extensive ongoing tobacco history with chronic obstructive pulmonary disease. Chronic hypercapnic respiratory failure PLAN: 1. Continue antibiotics.CPAP trial today. 2. Sputum studies. 3. Steroid taper. 4. Bronchodilators. 5. Cardiology recommendations. 6. DVT and GI prophylaxis. 7. Tube feeding as tolerated Critical care time 40 minutes. JOSÉ ANTONIO LOJA MD, [facility] March 10, 2019 09:42
[2019-03-10] MEDS ORDERED: FUROSEMIDE 40 MG INJ IV SCH (10:00)
[2019-03-10] MEDS: metFORMIN 500 MG TAB NGT SCH ×2 (10:16→18:18)
--- NOTE | 2019-03-10 11:21 | PN ---
Date/Time of Note Date/Time of Note DATE: 03/10/19 TIME: 11:20 Assessment/Plan VTE Prophylaxis Risk score (from Nsg)>0 risk: 8 SCD applied (from Nsg): Yes Pharmacological prophylaxis: heparin Lines/Catheters IV Catheter Type (from Nrsg): Peripheral IV Assessment/Plan Hospital Course 74 yo man with uncontrolled COPD and diabetes presents in COPD exacerbation after leaving another hospital AMA. #Acute respiratory failure secondary to COPD exacerbation and aspiration pneumonia -Continue Zosyn - Scheduled nebulization, IV steroids, - Patient developed hypercapnic respiratory failure after arrival, continue ventilator support - Avoid all sedating medications. - Ventilator weaning per pulmonary, continues to require elevated FiO2 but trending down . #Non-STEMI type II -Stress test once stable - Patient also was complaining of chest discomfort in the setting of acute COPD exacerbation. - Dr Wilson consultation appreciated # diabetes mellitus: -A1c of 9.8 and patient is only on metformin at home, sugars are also acutely elevated secondary to steroids -Endo consultation appreciated -Continue insulin drip # hypertension: Resume patient's home blood pressure medications as able # DVT GI prophylaxis: heparin, H2 daniel Result Diagram: 03/10/1950903/10/1910 Results 24hrs Laboratory Tests Test 03/09/19 12:28 03/09/19 14:20 03/09/19 15:38 03/09/19 18:08 Bedside Glucose 194 189 176 167 Test 03/09/19 20:02 03/09/19 21:58 03/09/19 23:01 03/09/19 23:52 Bedside Glucose 172 181 153 147 Test 03/10/19 02:13 03/10/19 04:05 03/10/19 05:10 03/10/19 05:54 Bedside Glucose 154 132 149 White Blood 7.8 Count Red Blood Count 5.76 Hemoglobin 16.6 Hematocrit 52.8 H Mean Corpuscular 91.7 Volume Mean Corpuscular 28.8 L Hemoglobin Mean Corpuscular 31.4 L Hemoglobin Key nt Red Cell 18.2 H Distribution Width Platelet Count 219 Mean Platelet 10.8 H Volume Immature 0.500 H Granulocytes % Neutrophils % 86.7 H Lymphocytes % 6.7 L Monocytes % 6.1 Eosinophils % 0.0 Basophils % 0.0 Nucleated Red 0.0 Blood Cells % Immature 0.040 H Granulocytes # Neutrophils # 6.8 Lymphocytes # 0.5 L Monocytes # 0.5 Eosinophils # 0.0 Basophils # 0.0 Nucleated Red 0.0 Blood Cells # Sodium Level 144 Potassium Level 3.7 Chloride Level 110 Carbon Dioxide 28 Level Anion Gap 6 Blood Urea 21 #H Nitrogen Creatinine 0.61 Est Glomerular Filtrat Rate mL/min Glucose Level 149 # Calcium Level 8.8 Phosphorus Level 4.6 Magnesium Level 2.3 Total Bilirubin 0.6 Direct Bilirubin 0.00 Indirect 0.6 Bilirubin Aspartate Amino 18 Transf (AST/SGOT ) Alanine 24 Aminotransferase (ALT/SGPT) Alkaline 50 Phosphatase Total Protein 6.1 Albumin 3.1 L Globulin 3.00 Albumin/Globulin 1.03 Ratio Test 03/10/19 06:25 03/10/19 07:00 03/10/19 08:15 03/10/19 10:15 Lab Scanned REFERENCE LAB Report Blood Gas Blood arterial Specimen Source Arterial Blood 03/10/2019 7:00: Date Drawn 11 AM Arterial Blood 7.502 H pH (Temp corrected) Arterial Blood 37.9 pCO2 (Temp correct) Arterial Blood 69.9 L pO2 (Temp corrected) Arterial Blood 29.0 H HCO3 Arterial Blood 5.7 H Base Excess Arterial Blood 93.5 L Oxygen Saturatio n Ivan Test ACCEPTAB Arterial Blood Right Radial Gas Puncture Site Arterial 0.2 Blood Carboxyhem oglobin Arterial Blood 0.3 Methemoglobin Blood Gas A-a O2 244.0 H Differential Oxyhemoglobin 93.0 Percent Blood Gas 37.0 Temperature Blood Gas 24.0 Respiration Rate Blood Gas Actual 24 Respiration Rate Blood Gas VENT - AC Modality FiO2 50.0 Blood Gas Tidal 550.0 Volume Blood Gas Low 5.0 PEEP Setting Blood Gas TM Notified Whom Blood Gas 03/10/2019 7:42: Notified Time 47 AM Bedside Glucose 159 159 Subjective 24 Hr Interval Summary Subjective hx not possible: pt non-verbal Exam/Review of Systems Exam Vitals Vital Signs Date Temp Pulse Resp B/P (MAP) Pulse Ox O2 O2 Flow FiO2 Time Delivery Rate 03/10/19 78 20 162/96 98 Mechanical 11:00 (118) Ventilator 03/10/19 98.8 08:00 03/10/19 50 05:02 03/07/19 15.0 08:00 Intake and Output 03/09/19 03/09/19 03/10/19 1414:59 22:59 06:59 IntakeIntake Total 1340 ml 1234.88 ml 1533.76 ml OutputOutput Total 455 ml 540 ml 580 ml BalanceBalance 885 ml 694.88 ml 953.76 ml Constitutional: non-verbal ENMT: intubated Respiratory: clear to auscultation Cardiovascular: regular rate and rhythm Gastrointestinal: soft; No distended Musculoskeletal: nl extremities to inspection Results Results 24hrs Laboratory Tests Test 03/09/19 12:28 03/09/19 14:20 03/09/19 15:38 03/09/19 18:08 Bedside Glucose 194 189 176 167 Test 03/09/19 20:02 03/09/19 21:58 03/09/19 23:01 03/09/19 23:52 Bedside Glucose 172 181 153 147 Test 03/10/19 02:13 03/10/19 04:05 03/10/19 05:10 03/10/19 05:54 Bedside Glucose 154 132 149 White Blood 7.8 Count Red Blood Count 5.76 Hemoglobin 16.6 Hematocrit 52.8 H Mean Corpuscular 91.7 Volume Mean Corpuscular 28.8 L Hemoglobin Mean Corpuscular 31.4 L Hemoglobin Key nt Red Cell 18.2 H Distribution Width Platelet Count 219 Mean Platelet 10.8 H Volume Immature 0.500 H Granulocytes % Neutrophils % 86.7 H Lymphocytes % 6.7 L Monocytes % 6.1 Eosinophils % 0.0 Basophils % 0.0 Nucleated Red 0.0 Blood Cells % Immature 0.040 H Granulocytes # Neutrophils # 6.8 Lymphocytes # 0.5 L Monocytes # 0.5 Eosinophils # 0.0 Basophils # 0.0 Nucleated Red 0.0 Blood Cells # Sodium Level 144 Potassium Level 3.7 Chloride Level 110 Carbon Dioxide 28 Level Anion Gap 6 Blood Urea 21 #H Nitrogen Creatinine 0.61 Est Glomerular Filtrat Rate mL/min Glucose Level 149 # Calcium Level 8.8 Phosphorus Level 4.6 Magnesium Level 2.3 Total Bilirubin 0.6 Direct Bilirubin 0.00 Indirect 0.6 Bilirubin Aspartate Amino 18 Transf (AST/SGOT ) Alanine 24 Aminotransferase (ALT/SGPT) Alkaline 50 Phosphatase Total Protein 6.1 Albumin 3.1 L Globulin 3.00 Albumin/Globulin 1.03 Ratio Test 03/10/19 06:25 03/10/19 07:00 03/10/19 08:15 03/10/19 10:15 Lab Scanned REFERENCE LAB Report Blood Gas Blood arterial Specimen Source Arterial Blood 03/10/2019 7:00: Date Drawn 11 AM Arterial Blood 7.502 H pH (Temp corrected) Arterial Blood 37.9 pCO2 (Temp correct) Arterial Blood 69.9 L pO2 (Temp corrected) Arterial Blood 29.0 H HCO3 Arterial Blood 5.7 H Base Excess Arterial Blood 93.5 L Oxygen Saturatio n Ivan Test ACCEPTAB Arterial Blood Right Radial Gas Puncture Site Arterial 0.2 Blood Carboxyhem oglobin Arterial Blood 0.3 Methemoglobin Blood Gas A-a O2 244.0 H Differential Oxyhemoglobin 93.0 Percent Blood Gas 37.0 Temperature Blood Gas 24.0 Respiration Rate Blood Gas Actual 24 Respiration Rate Blood Gas VENT - AC Modality FiO2 50.0 Blood Gas Tidal 550.0 Volume Blood Gas Low 5.0 PEEP Setting Blood Gas TM Notified Whom Blood Gas 03/10/2019 7:42: Notified Time 47 AM Bedside Glucose 159 159 Medications Medication Current Medications IV Flush (NS 3 ml) 3 ml PER PROTOCOL IV ; Start 03/06/19 at 23:30 Aspirin (Halfprin) 81 mg DAILY PO Last administered on 03/10/19at 08:17; Admin Dose 81 MG; Start 03/07/19 at 09:00 Levothyroxine Sodium (Synthroid) 200 mcg DAILY@0600 PO Last administered on 03/10/19at 05:52; Admin Dose 200 MCG; Start 03/07/19 at 06:00 Fluticasone/ Vilanterol (Breo Ellipta 200-25 Mcg Inh) 1 inh DAILY INH ; Start 03/07/19 at 09:00 Atorvastatin Calcium (Lipitor) 80 mg DAILY@21 PO Last administered on 03/09/19at 20:56; Admin Dose 80 MG; Start 03/07/19 at 21:00 Hydralazine HCl (Apresoline) 10 mg Q4H PRN IV ELEVATED SYSTOLIC BP; Start 03/07/19 at 03:00 Nicotine (Nicoderm 21 Mg/ 24hr) 1 patch DAILY TRANSDERM Last administered on 03/10/19at 08:17; Admin Dose 1 PATCH; Start 03/07/19 at 03:00 Eye Lubricant (Artificial Tears Oph) 2 drop Q6H PRN BOTH EYES DRY EYES; Start 03/07/19 at 03:00 Miscellaneous Information 1 ea NOTE XX ; Start 03/07/19 at 03:00 Glucose (Glutose) 15 gm Q15M PRN PO DECREASED GLUCOSE; Start 03/07/19 at 03:00 Glucose (Glutose) 22.5 gm Q15M PRN PO DECREASED GLUCOSE; Start 03/07/19 at 03:00 Dextrose (D50w Syringe) 25 ml Q15M PRN IV DECREASED GLUCOSE; Start 03/07/19 at 03:00 Dextrose (D50w Syringe) 50 ml Q15M PRN IV DECREASED GLUCOSE; Start 03/07/19 at 03:00 Glucagon (Glucagen) 1 mg Q15M PRN IM DECREASED GLUCOSE; Start 03/07/19 at 03:00 Glucose (Glutose) 15 gm Q15M PRN BUCCAL DECREASED GLUCOSE; Start 03/07/19 at 03:00 Insulin Glargine (Lantus) 10 units DAILY@0800 SC ; Start 03/07/19 at 08:00; Status Hold Insulin Aspart (Novolog Insulin Pen) NOVOLOG *MODERATE* ALGORI... Q4 SC ; Start 03/07/19 at 09:00; Status Hold Propofol 100 ml @ 2.547 mls/ hr PER PROTOCOL IV Last administered on 03/10/19at 07:07; Admin Dose 25.47 MLS/HR; Start 03/07/19 at 08:30 Norepinephrine 250 ml @ 1.875 mls/ hr PER PROTOCOL IV ; Start 03/07/19 at 09:00 Insulin Human Regular 100 unit/ Sodium Chloride 100 ml @ 0 mls/hr PER PROTOCOL IV Last administered on 03/09/19at 14:27; Admin Dose 5 MLS/HR; Start 03/07/19 at 09:30 Heparin Sodium (Porcine) (Heparin (5000 Units/1ml)) 5,000 unit Q8 SC Last administered on 03/10/19at 06:04; Admin Dose 5,000 UNIT; Start 03/07/19 at 14:00 Famotidine (Pepcid Iv) 20 mg BID IV Last administered on 03/10/19at 08:17; Admin Dose 20 MG; Start 03/07/19 at 09:30 Diagnostic Test (Pha) (Accu-Chek) 1 ea Q1H XX Last administered on 03/10/19at 10:16; Admin Dose 1 EA; Start 03/07/19 at 10:00 Albuterol (Ventolin Hfa) 4 puff Q4H RESP THERAPY INH Last administered on 03/10/19at 05:02; Admin Dose 4 PUFF; Start 03/07/19 at 13:00 Ipratropium [place] (Atrovent Hfa) 4 puff Q4H RESP THERAPY INH Last administered on 03/10/19at 05:02; Admin Dose 4 PUFF; Start 03/07/19 at 13:00 Piperacillin Sod/ Tazobactam Sod 100 ml @ 200 mls/hr Q6 IVPB Last administered on 03/10/19 05:52; Admin Dose 200 MLS/HR; Start 03/07/19 at 12:00 Sodium Chloride 1,000 ml @ 80 mls/hr [id number] IV Last administered on 03/09/19at 20:13; Admin Dose 80 MLS/HR; Start 03/07/19 at 22:00 Amlodipine Besylate (Norvasc) 10 mg DAILY NGT Last administered on 03/10/19at 08:17; Admin Dose 10 MG; Start 03/09/19 at 14:00 Hydralazine HCl (Apresoline) 10 mg Q4H PRN IV SBP>160 Last administered on 03/09/19at 15:50; Admin Dose 10 MG; Start 03/09/19 at 14:00 Metformin HCl (Glucophage) 500 mg BID WITH MEALS NGT Last administered on 03/10/19at 10:16; Admin Dose 500 MG; Start 03/10/19 at 09:30 Pioglitazone HCl (Actos) 15 mg DAILY NGT ; Start 03/10/19 at 10:30 Methylprednisolone Sodium Succinate (Solu-Medrol) 40 mg Q12 IV ; Start 03/10/19 at 21:00 Furosemide (Lasix) 40 mg DAILY IV Last administered on 03/10/19at 10:22; Admin Dose 40 MG; Start 03/10/19 at 10:00 Insulin Human NPH (Humulin N) 6 unit Q12 SC ; Start 03/10/19 at 21:00 WALLACE COBB March 10, 2019 11:21
[2019-03-10] MEDS: INSULIN HUMAN REGULAR 100 UNIT in SOD CHLORIDE 0.9% 99 ML IV SCH (11:44)
[2019-03-10] MEDS: SOD CHLORIDE 0.9% 1,000 ML IV SCH (12:30)
[2019-03-10] MEDS: PIOGLITAZONE 15 MG TAB NGT SCH (13:05)
[2019-03-10] MEDS: ALBUTEROL/IPRATROPIUM (NEB) 3 ML AMP HHN SCH ×2 (19:05→20:30)
[2019-03-10] MEDS ORDERED: LORAZEPAM 2 MG INJ IV PRN (19:30)
[2019-03-10] MEDS: LORAZEPAM 2 MG INJ IV PRN (20:10)
[2019-03-10] MEDS: ATORVASTATIN 80 MG TAB PO SCH (20:43)
[2019-03-10] MEDS ORDERED: HALOPERIDOL 5 MG INJ IM ONE (21:00)
[2019-03-10] MEDS ORDERED: LORAZEPAM 2 MG INJ IV ONE (21:00)
[2019-03-11] VITALS (22 sets, daily range): BP systolic 132–159; BP diastolic 64–93; PULSE 67–82; RESP 17–27
[2019-03-11] MEDS: PIPER-TAZO 3.375 GM IV (PMX) 100 ML IVPB SCH ×5 (00:47→23:34)
[2019-03-11] MEDS: LEVOTHYROXINE 100 MCG TAB PO SCH (06:02)
[2019-03-11] MEDS: HEPARIN 5,000 UNIT/1 ML VIAL SC SCH ×3 (06:12→21:19)
--- NOTE | 2019-03-11 08:06 | CONS ---
Assessment/Plan Assessment/Plan Hospital Course (Demo Recall) Acute respiratory failure with hypoxia/hypercapnia: Initially due to severe COPD exacerbation with PCO2 160 requiring intubation but CXR post intubation shows a large infiltrate which is likely due to aspiration. Also with CHF from IVF. Now extubated 03/10 Acute diastolic CHF: due to IVF. Diuresed well with one dose of lasix NSTEMI: mild trops 0.2 x 3. Trend does not suggest ACS but rather type II in setting of above. Echo with preserved EF. Plan for stress testing inpt vs outpt depending on clinical progress and pt willingness to be compliant PNA: likely aspiration as not present on initial CXR. Either happened when he wa s altered from the hypercapnia or during intubation COPD with severe exacerbation: still wheezing on exam Active tobacco abuse DM HTN -one more dose of lasix 40mg IV and reassess daily. DO not suspect he needs it chronically -continue ASA, lipitor -amlodipine 10mg -steroids per pulm/primary teams Consultation Date/Type/Reason Admit Date/Time March 06, 2019 at 23:13 Initial Consult Date 03/07/19 Type of Consult Cardiology Requesting Provider: SANDIE LUGO Date/Time of Note DATE: 03/11/19 TIME: 08:02 24 HR Interval Summary Free Text/Dictation Extubated. Denies chest pain or SOB. Still wheezing Exam/Review of Systems Vital Signs Vitals Vital Signs Date Temp Pulse Resp B/P (MAP) Pulse Ox O2 O2 Flow FiO2 Time Delivery Rate 03/11/19 97.6 67 20 142/78 95 Nasal 4.0 07:00 (99) Cannula 03/11/19 50 02:50 Intake and Output 03/10/19 03/10/19 03/11/19 1515:00 23:00 07:00 IntakeIntake Total 534 ml 476 ml 545 ml OutputOutput Total 2830 ml 1420 ml 725 ml BalanceBalance -2296 ml -944 ml -180 ml Exam Constitutional: alert, oriented Psych: no complaints, nl mood/affect Head: normocephalic, atraumatic Neck: No jvd Respiratory: diminished breath sounds, wheezing; No clear to auscultation Cardiovascular: regular rate and rhythm; No edema, No systolic murmur Gastrointestinal: soft, non-tender; No distended Neurological: nl mental status, nl speech Labs Result Diagram: 03/11/19 0455 03/11/19 0455 Results 24hrs Laboratory Tests Test 03/10/19 08:15 03/10/19 10:15 03/10/19 11:30 03/10/19 11:36 Bedside Glucose 159 159 141 Blood Gas Blood arterial Specimen Source Arterial Blood 03/10/2019 11:35: Date Drawn 10 AM Arterial Blood pH 7.424 (Temp corrected) Arterial Blood 47.3 H pCO2 (Temp correct) Arterial Blood 75.5 L pO2 (Temp corrected) Arterial Blood 30.3 H HCO3 Arterial Blood 4.6 H Base Excess Arterial Blood 94.1 L Oxygen Saturation Ivan Test ACCEPTAB Arterial Blood Right Radial Gas Puncture Site Arterial 0.3 Blood Carboxyhemo globin Arterial Blood 0.4 Methemoglobin Blood Gas A-a O2 227.8 H Differential Oxyhemoglobin 93.4 Percent Blood Gas 37.0 Temperature Blood Gas Actual 19 Respiration Rate Blood Gas VENT - CPAP Modality FiO2 50.0 Blood Gas Low 5.0 PEEP Setting Blood Gas 10 Pressure Support Blood Gas TM Notified Whom Blood Gas 03/10/2019 11:43: Notified Time 48 AM Test 03/10/19 13:06 03/10/19 14:22 03/10/19 15:30 03/10/19 18:00 Bedside Glucose 107 110 127 81 Test 03/10/19 20:44 03/11/19 04:55 03/11/19 07:00 Bedside Glucose 99 White Blood Count 7.2 Red Blood Count 6.20 H Hemoglobin 17.9 Hematocrit 57.5 H Mean Corpuscular 92.7 Volume Mean Corpuscular 28.9 L Hemoglobin Mean Corpuscular 31.1 L Hemoglobin Concen t Red Cell 17.9 H Distribution Width Platelet Count 206 Mean Platelet 10.8 H Volume Immature 0.400 Granulocytes % Neutrophils % 84.5 H Lymphocytes % 8.1 L Monocytes % 6.9 Eosinophils % 0.0 Basophils % 0.1 Nucleated Red 0.0 Blood Cells % Immature 0.030 Granulocytes # Neutrophils # 6.0 Lymphocytes # 0.6 L Monocytes # 0.5 Eosinophils # 0.0 Basophils # 0.0 Nucleated Red 0.0 Blood Cells # Sodium Level 144 Potassium Level 3.9 Chloride Level 106 Carbon Dioxide 33 H Level Anion Gap 5 Blood Urea 27 H Nitrogen Creatinine 0.63 Est Glomerular Filtrat Rate mL/min Glucose Level 195 Calcium Level 8.5 Phosphorus Level 6.2 H Magnesium Level 2.0 Thyroid 12.800 H Stimulating Hormone (TSH) Free Thyroxine 1.05 Free 1.84 L Triiodothyronine (T3) pg/mL Blood Gas Blood arterial Specimen Source Arterial Blood 03/11/2019 6:54:0 Date Drawn 5 AM Arterial Blood pH 7.378 (Temp corrected) Arterial Blood 58.6 H pCO2 (Temp correct) Arterial Blood 76.8 L pO2 (Temp corrected) Arterial Blood 33.7 H HCO3 Arterial Blood 6.0 H Base Excess Arterial Blood 94.1 L Oxygen Saturation Ivan Test ACCEPTAB Arterial Blood Left Radial Gas Puncture Site Arterial 0.1 Blood Carboxyhemo globin Arterial Blood 0.3 Methemoglobin Blood Gas A-a O2 90.1 H Differential Oxyhemoglobin 93.7 Percent Blood Gas 37.0 Temperature Blood Gas NASAL CANNULA Modality FiO2 33.0 Blood Gas TM Notified Whom Blood Gas 03/11/2019 7:33:3 Notified Time 7 AM Medications Medications Current Medications IV Flush (NS 3 ml) 3 ml PER PROTOCOL IV ; Start 03/06/19 at 23:30 Aspirin (Halfprin) 81 mg DAILY PO Last administered on 03/10/19at 08:17; Admin Dose 81 MG; Start 03/07/19 at 09:00 Levothyroxine Sodium (Synthroid) 200 mcg DAILY@0600 PO Last administered on 03/11/19at 06:02; Admin Dose 200 MCG; Start 03/07/19 at 06:00 Fluticasone/ Vilanterol (Breo Ellipta 200-25 Mcg Inh) 1 inh DAILY INH ; Start 03/07/19 at 09:00 Atorvastatin Calcium (Lipitor) 80 mg DAILY@21 PO Last administered on 03/10/19at 20:43; Admin Dose 80 MG; Start 03/07/19 at 21:00 Hydralazine HCl (Apresoline) 10 mg Q4H PRN IV ELEVATED SYSTOLIC BP; Start 03/07/19 at 03:00 Nicotine (Nicoderm 21 Mg/ 24hr) 1 patch DAILY TRANSDERM Last administered on 03/10/19at 08:17; Admin Dose 1 PATCH; Start 03/07/19 at 03:00 Eye Lubricant (Artificial Tears Oph) 2 drop Q6H PRN BOTH EYES DRY EYES; Start 03/07/19 at 03:00 Miscellaneous Information 1 ea NOTE XX ; Start 03/07/19 at 03:00 Glucose (Glutose) 15 gm Q15M PRN PO DECREASED GLUCOSE; Start 03/07/19 at 03:00 Glucose (Glutose) 22.5 gm Q15M PRN PO DECREASED GLUCOSE; Start 03/07/19 at 03:00 Dextrose (D50w Syringe) 25 ml Q15M PRN IV DECREASED GLUCOSE; Start 03/07/19 at 03:00 Dextrose (D50w Syringe) 50 ml Q15M PRN IV DECREASED GLUCOSE; Start 03/07/19 at 03:00 Glucagon (Glucagen) 1 mg Q15M PRN IM DECREASED GLUCOSE; Start 03/07/19 at 03:00 Glucose (Glutose) 15 gm Q15M PRN BUCCAL DECREASED GLUCOSE; Start 03/07/19 at 03:00 Insulin Glargine (Lantus) 10 units DAILY@0800 SC ; Start 03/07/19 at 08:00; Status Hold Insulin Aspart (Novolog Insulin Pen) NOVOLOG *MODERATE* ALGORI... Q4 SC ; Start 03/07/19 at 09:00; Status Hold Propofol 100 ml @ 2.547 mls/ hr PER PROTOCOL IV Last administered on 03/10/19at 07:07; Admin Dose 25.47 MLS/HR; Start 03/07/19 at 08:30 Norepinephrine 250 ml @ 1.875 mls/ hr PER PROTOCOL IV ; Start 03/07/19 at 09:00 Heparin Sodium (Porcine) (Heparin (5000 Units/1ml)) 5,000 unit Q8 SC Last administered on 03/11/19at 06:12; Admin Dose 5,000 UNIT; Start 03/07/19 at 14:00 Famotidine (Pepcid Iv) 20 mg BID IV Last administered on 03/10/19at 20:43; Admin Dose 20 MG; Start 03/07/19 at 09:30 Piperacillin Sod/ Tazobactam Sod 100 ml @ 200 mls/hr Q6 IVPB Last administered on 03/11/19at 06:02; Admin Dose 200 MLS/HR; Start 03/07/19 at 12:00 Amlodipine Besylate (Norvasc) 10 mg DAILY NGT Last administered on 03/10/19at 08:17; Admin Dose 10 MG; Start 03/09/19 at 14:00 Hydralazine HCl (Apresoline) 10 mg Q4H PRN IV SBP>160 Last administered on 15:50; Admin Dose 10 MG; Start 03/09/19 at 14:00 Metformin HCl (Glucophage) 500 mg BID WITH MEALS NGT Last administered on 03/10/19 18:18; Admin Dose 500 MG; Start 03/10/19 at 09:30 Pioglitazone HCl (Actos) 15 mg DAILY NGT Last administered on 03/10/19 13:05; Admin Dose 15 MG; Start 03/10/19 at 10:30 Methylprednisolone Sodium Succinate (Solu-Medrol) 40 mg Q12 IV Last administered on 03/10/19 20:45; Admin Dose 40 MG; Start 03/10/19 at 21:00 Furosemide (Lasix) 40 mg DAILY IV Last administered on 03/10/19 10:22; Admin Dose 40 MG; Start 03/10/19 at 10:00 Insulin Human NPH (Humulin N) 6 unit Q12 SC Last administered on 03/10/19 20:51; Admin Dose 6 UNIT; Start 03/10/19 at 21:00 Albuterol/ Ipratropium (Duoneb) 3 ml Q4HWA RESP THERAPY HHN Last administered on 03/10/19 20:30; Admin Dose 3 ML; Start 03/10/19 at 17:00 Lorazepam (Ativan) 1 mg Q8H PRN IV ANXIETY Last administered on 03/10/19 20:10; Admin Dose 1 MG; Start 03/10/19 at 19:30 RADU VIVAS March 11, 2019 08:06
--- NOTE | 2019-03-11 08:08 | CONS ---
Assessment/Plan Assessment/Plan Assessment/Plan (Daily) Chest x-ray from today showing persistent mild CHF with interval improvement. ABGs showing mild hypercapnic respiratory failure. Assessment and recommendations; 1. Patient admitted with respiratory failure due to underlying severe exacerbation with hypercapnia clinically improving. 2. Difficult to rule out some element of pneumonia 3. History of hypertension, diabetes and hypothyroidism. Continue current supportive care. Continue nocturnal BiPAP as well as BiPAP on a as needed basis. Patient can be transferred to telemetry unit. Consultation Date/Type/Reason Admit Date/Time March 06, 2019 at 23:13 Initial Consult Date 03/07/19 Type of Consult Pulmonary/critical care Reason for Consultation Patient's condition is a stable. Was successfully extubated yesterday. Patient has remained hemodynamically stable. Denies any shortness of breath, coughing, wheezing,. General exam; elderly male, awake alert, laying comfortably in bed. Currently in no distress. HEENT exam; supple neck, positive JVD. No lymphadenopathy. No neck masses. Patient is edentulous. Nasogastric tube in place. Pupils are small bilaterally. No neck masses. Chest exam; diminished but clear breath sounds. S1-S2 audible, no murmurs. Regular rhythm. Abdomen exam; soft, nontender. No organomegaly. Bowel sounds audible. Extremity exam; no edema. [employer] exam; no focal motor deficit. Requesting Provider: SANDIE LUGO Date/Time of Note DATE: 03/11/19 TIME: 08:06 Exam/Review of Systems Exam Vitals Vital Signs Date Temp Pulse Resp B/P (MAP) Pulse Ox O2 O2 Flow FiO2 Time Delivery Rate 03/11/19 97.6 67 20 142/78 95 Nasal 4.0 07:00 (99) Cannula 03/11/19 50 02:50 Intake and Output 03/10/19 03/10/19 03/11/19 1515:00 23:00 07:00 IntakeIntake Total 534 ml 476 ml 545 ml OutputOutput Total 2830 ml 1420 ml 725 ml BalanceBalance -2296 ml -944 ml -180 ml Results Result Diagram: 03/11/19 0455 03/11/19 0455 Results 24hrs Laboratory Tests Test 03/10/19 08:15 03/10/19 10:15 03/10/19 11:30 03/10/19 11:36 Bedside Glucose 159 159 141 Blood Gas Blood arterial Specimen Source Arterial Blood 03/10/2019 11:35: Date Drawn 10 AM Arterial Blood pH 7.424 (Temp corrected) Arterial Blood 47.3 H pCO2 (Temp correct) Arterial Blood 75.5 L pO2 (Temp corrected) Arterial Blood 30.3 H HCO3 Arterial Blood 4.6 H Base Excess Arterial Blood 94.1 L Oxygen Saturation Ivan Test ACCEPTAB Arterial Blood Right Radial Gas Puncture Site Arterial 0.3 Blood Carboxyhemo globin Arterial Blood 0.4 Methemoglobin Blood Gas A-a O2 227.8 H Differential Oxyhemoglobin 93.4 Percent Blood Gas 37.0 Temperature Blood Gas Actual 19 Respiration Rate Blood Gas VENT - CPAP Modality FiO2 50.0 Blood Gas Low 5.0 PEEP Setting Blood Gas 10 Pressure Support Blood Gas TM Notified Whom Blood Gas 03/10/2019 11:43: Notified Time 48 AM Test 03/10/19 13:06 03/10/19 14:22 03/10/19 15:30 03/10/19 18:00 Bedside Glucose 107 110 127 81 Test 03/10/19 20:44 03/11/19 04:55 03/11/19 07:00 Bedside Glucose 99 White Blood Count 7.2 Red Blood Count 6.20 H Hemoglobin 17.9 Hematocrit 57.5 H Mean Corpuscular 92.7 Volume Mean Corpuscular 28.9 L Hemoglobin Mean Corpuscular 31.1 L Hemoglobin Concen t Red Cell 17.9 H Distribution Width Platelet Count 206 Mean Platelet 10.8 H Volume Immature 0.400 Granulocytes % Neutrophils % 84.5 H Lymphocytes % 8.1 L Monocytes % 6.9 Eosinophils % 0.0 Basophils % 0.1 Nucleated Red 0.0 Blood Cells % Immature 0.030 Granulocytes # Neutrophils # 6.0 Lymphocytes # 0.6 L Monocytes # 0.5 Eosinophils # 0.0 Basophils # 0.0 Nucleated Red 0.0 Blood Cells # Sodium Level 144 Potassium Level 3.9 Chloride Level 106 Carbon Dioxide 33 H Level Anion Gap 5 Blood Urea 27 H Nitrogen Creatinine 0.63 Est Glomerular Filtrat Rate mL/min Glucose Level 195 Calcium Level 8.5 Phosphorus Level 6.2 H Magnesium Level 2.0 Thyroid 12.800 H Stimulating Hormone (TSH) Free Thyroxine 1.05 Free 1.84 L Triiodothyronine (T3) pg/mL Blood Gas Blood arterial Specimen Source Arterial Blood 03/11/2019 6:54:0 Date Drawn 5 AM Arterial Blood pH 7.378 (Temp corrected) Arterial Blood 58.6 H pCO2 (Temp correct) Arterial Blood 76.8 L pO2 (Temp corrected) Arterial Blood 33.7 H HCO3 Arterial Blood 6.0 H Base Excess Arterial Blood 94.1 L Oxygen Saturation Ivan Test ACCEPTAB Arterial Blood Left Radial Gas Puncture Site Arterial 0.1 Blood Carboxyhemo globin Arterial Blood 0.3 Methemoglobin Blood Gas A-a O2 90.1 H Differential Oxyhemoglobin 93.7 Percent Blood Gas 37.0 Temperature Blood Gas NASAL CANNULA Modality FiO2 33.0 Blood Gas TM Notified Whom Blood Gas 03/11/2019 7:33:3 Notified Time 7 AM Medications Medication Current Medications IV Flush (NS 3 ml) 3 ml PER PROTOCOL IV ; Start 03/06/19 at 23:30 Aspirin (Halfprin) 81 mg DAILY PO Last administered on 03/10/19at 08:17; Admin Dose 81 MG; Start 03/07/19 at 09:00 Levothyroxine Sodium (Synthroid) 200 mcg DAILY@0600 PO Last administered on 03/11/19at 06:02; Admin Dose 200 MCG; Start 03/07/19 at 06:00 Fluticasone/ Vilanterol (Breo Ellipta 200-25 Mcg Inh) 1 inh DAILY INH ; Start 03/07/19 at 09:00 Atorvastatin Calcium (Lipitor) 80 mg DAILY@21 PO Last administered on 03/10/19at 20:43; Admin Dose 80 MG; Start 03/07/19 at 21:00 Hydralazine HCl (Apresoline) 10 mg Q4H PRN IV ELEVATED SYSTOLIC BP; Start 03/07/19 at 03:00 Nicotine (Nicoderm 21 Mg/ 24hr) 1 patch DAILY TRANSDERM Last administered on 03/10/19at 08:17; Admin Dose 1 PATCH; Start 03/07/19 at 03:00 Eye Lubricant (Artificial Tears Oph) 2 drop Q6H PRN BOTH EYES DRY EYES; Start 03/07/19 at 03:00 Miscellaneous Information 1 ea NOTE XX ; Start 03/07/19 at 03:00 Glucose (Glutose) 15 gm Q15M PRN PO DECREASED GLUCOSE; Start 03/07/19 at 03:00 Glucose (Glutose) 22.5 gm Q15M PRN PO DECREASED GLUCOSE; Start 03/07/19 at 03:00 Dextrose (D50w Syringe) 25 ml Q15M PRN IV DECREASED GLUCOSE; Start 03/07/19 at 03:00 Dextrose (D50w Syringe) 50 ml Q15M PRN IV DECREASED GLUCOSE; Start 03/07/19 at 03:00 Glucagon (Glucagen) 1 mg Q15M PRN IM DECREASED GLUCOSE; Start 03/07/19 at 03:00 Glucose (Glutose) 15 gm Q15M PRN BUCCAL DECREASED GLUCOSE; Start 03/07/19 at 03:00 Insulin Glargine (Lantus) 10 units DAILY@0800 SC ; Start 03/07/19 at 08:00; Status Hold Insulin Aspart (Novolog Insulin Pen) NOVOLOG *MODERATE* ALGORI... Q4 SC ; Start 03/07/19 at 09:00; Status Hold Propofol 100 ml @ 2.547 mls/ hr PER PROTOCOL IV Last administered on 03/10/19at 07:07; Admin Dose 25.47 MLS/HR; Start 03/07/19 at 08:30 Norepinephrine 250 ml @ 1.875 mls/ hr PER PROTOCOL IV ; Start 03/07/19 at 09:00 Heparin Sodium (Porcine) (Heparin (5000 Units/1ml)) 5,000 unit Q8 SC Last administered on 03/11/19at 06:12; Admin Dose 5,000 UNIT; Start 03/07/19 at 14:00 Famotidine (Pepcid Iv) 20 mg BID IV Last administered on 03/10/19at 20:43; Admin Dose 20 MG; Start 03/07/19 at 09:30 Piperacillin Sod/ Tazobactam Sod 100 ml @ 200 mls/hr Q6 IVPB Last administered on 03/11/19at 06:02; Admin Dose 200 MLS/HR; Start 03/07/19 at 12:00 Amlodipine Besylate (Norvasc) 10 mg DAILY NGT Last administered on 03/10/19at 08:17; Admin Dose 10 MG; Start 03/09/19 at 14:00 Hydralazine HCl (Apresoline) 10 mg Q4H PRN IV SBP>160 Last administered on 03/09/19at 15:50; Admin Dose 10 MG; Start 03/09/19 at 14:00 Metformin HCl (Glucophage) 500 mg BID WITH MEALS NGT Last administered on 03/10/19 18:18; Admin Dose 500 MG; Start 03/10/19 at 09:30 Pioglitazone HCl (Actos) 15 mg DAILY NGT Last administered on 03/10/19 13:05; Admin Dose 15 MG; Start 03/10/19 at 10:30 Methylprednisolone Sodium Succinate (Solu-Medrol) 40 mg Q12 IV Last administered on 03/10/19 20:45; Admin Dose 40 MG; Start 03/10/19 at 21:00 Furosemide (Lasix) 40 mg DAILY IV Last administered on 03/10/19 10:22; Admin Dose 40 MG; Start 03/10/19 at 10:00 Insulin Human NPH (Humulin N) 6 unit Q12 SC Last administered on 03/10/19 20:51; Admin Dose 6 UNIT; Start 03/10/19 at 21:00 Albuterol/ Ipratropium (Duoneb) 3 ml Q4HWA RESP THERAPY HHN Last administered on 03/10/19 20:30; Admin Dose 3 ML; Start 03/10/19 at 17:00 Lorazepam (Ativan) 1 mg Q8H PRN IV ANXIETY Last administered on 03/10/19 20:10; Admin Dose 1 MG; Start 03/10/19 at 19:30 BEBETO HILTON March 11, 2019 08:08
[2019-03-11] MEDS ORDERED: FUROSEMIDE 40 MG INJ IV ONE (08:30)
[2019-03-11] MEDS: NPH, HUMAN INSULIN ISOPHANE 3ML VIAL SC SCH ×2 (09:30→21:04)
[2019-03-11] MEDS: METHYLPREDNISOLONE 40 MG INJ IV SCH ×2 (09:32→20:51)
[2019-03-11] MEDS: LORAZEPAM 2 MG INJ IV PRN ×2 (09:32→21:47)
[2019-03-11] MEDS: NICOTINE (21 MG/24 HR) PATCH TRANSDERM SCH (09:33)
[2019-03-11] MEDS: PIOGLITAZONE 15 MG TAB NGT SCH (09:33)
[2019-03-11] MEDS: FLUTICASONE/VILANTEROL 200-25 INH DEVICE INH SCH (09:33)
[2019-03-11] MEDS: metFORMIN 500 MG TAB NGT SCH ×2 (09:33→18:52)
[2019-03-11] MEDS: AMLODIPINE 10 MG TAB NGT SCH (09:34)
[2019-03-11] MEDS: ASPIRIN (EC) 81 MG TAB PO SCH (09:34)
[2019-03-11] MEDS: ALBUTEROL/IPRATROPIUM (NEB) 3 ML AMP HHN SCH ×4 (09:38→20:28)
[2019-03-11] MEDS: FAMOTIDINE 20 MG INJ IV SCH ×2 (09:42→20:51)
[2019-03-11] MEDS ORDERED: MAGNESIUM HYDROXIDE 30ML CUP PO PRN (10:30)
--- NOTE | 2019-03-11 13:41 | CONS ---
Assessment/Plan Assessment/Plan Problems: (1) Diabetes mellitus type 2 in nonobese Status: Chronic Comment: His blood sugar control is actually doing quite nicely off of the insulin drip using NPH simultaneously with Solu-Medrol. Please note if the Solu-Medrol is going to be tapered I need to taper the NPH. In the meantime his diabetes is being treated with a combination of metformin which he is willing to take at home and oral pioglitazone. Continue to fine-tune the regimen. Consultation Date/Type/Reason Admit Date/Time March 06, 2019 at 23:13 Initial Consult Date 03/07/19 Type of Consult Endocrinology Reason for Consultation Diabetes mellitus type 2 with inadequate outpatient control; Requesting Provider: SANDIE LUGO Date/Time of Note DATE: 03/11/19 TIME: 13:39 24 HR Interval Summary Free Text/Dictation She is extubated but not terribly verbal yet Subjective hx not possible: pt non-verbal Exam/Review of Systems Exam Vitals Vital Signs Date Temp Pulse Resp B/P (MAP) Pulse Ox O2 O2 Flow FiO2 Time Delivery Rate 03/11/19 73 22 142/72 88 Nasal 4.0 13:00 (95) Cannula 03/11/19 97.8 12:00 03/11/19 50 02:50 Intake and Output 03/10/19 03/10/19 03/11/19 1515:00 23:00 07:00 IntakeIntake Total 534 ml 476 ml 580 ml OutputOutput Total 2830 ml 1420 ml 805 ml BalanceBalance -2296 ml -944 ml -225 ml Constitutional: alert, non-verbal Respiratory: crackles/rales, diminished breath sounds (Decreased I;E ratio; increase a to P diameter) Gastrointestinal: soft, nl liver, spleen, non-tender Results Result Diagram: 03/11/19 0455 03/11/19 0455 Results 24hrs Laboratory Tests Test 03/10/19 14:22 03/10/19 15:30 03/10/19 18:00 03/10/19 20:44 Bedside Glucose 110 127 81 99 Test 03/11/19 04:55 03/11/19 07:00 03/11/19 08:20 03/11/19 13:09 White Blood Count 7.2 Red Blood Count 6.20 H Hemoglobin 17.9 Hematocrit 57.5 H Mean Corpuscular 92.7 Volume Mean Corpuscular 28.9 L Hemoglobin Mean Corpuscular 31.1 L Hemoglobin Concen t Red Cell 17.9 H Distribution Width Platelet Count 206 Mean Platelet 10.8 H Volume Immature 0.400 Granulocytes % Neutrophils % 84.5 H Lymphocytes % 8.1 L Monocytes % 6.9 Eosinophils % 0.0 Basophils % 0.1 Nucleated Red 0.0 Blood Cells % Immature 0.030 Granulocytes # Neutrophils # 6.0 Lymphocytes # 0.6 L Monocytes # 0.5 Eosinophils # 0.0 Basophils # 0.0 Nucleated Red 0.0 Blood Cells # Sodium Level 144 Potassium Level 3.9 Chloride Level 106 Carbon Dioxide 33 H Level Anion Gap 5 Blood Urea 27 H Nitrogen Creatinine 0.63 Est Glomerular Filtrat Rate mL/min Glucose Level 195 Calcium Level 8.5 Phosphorus Level 6.2 H Magnesium Level 2.0 Thyroid 12.800 H Stimulating Hormone (TSH) Free Thyroxine 1.05 Free 1.84 L Triiodothyronine (T3) pg/mL Blood Gas Blood arterial Specimen Source Arterial Blood 03/11/2019 6:54:0 Date Drawn 5 AM Arterial Blood pH 7.378 (Temp corrected) Arterial Blood 58.6 H pCO2 (Temp correct) Arterial Blood 76.8 L pO2 (Temp corrected) Arterial Blood 33.7 H HCO3 Arterial Blood 6.0 H Base Excess Arterial Blood 94.1 L Oxygen Saturation Ivan Test ACCEPTAB Arterial Blood Left Radial Gas Puncture Site Arterial 0.1 Blood Carboxyhemo globin Arterial Blood 0.3 Methemoglobin Blood Gas A-a O2 90.1 H Differential Oxyhemoglobin 93.7 Percent Blood Gas 37.0 Temperature Blood Gas NASAL CANNULA Modality FiO2 33.0 Blood Gas TM Notified Whom Blood Gas 03/11/2019 7:33:3 Notified Time 7 AM Bedside Glucose 141 187 Medications Medication Current Medications IV Flush (NS 3 ml) 3 ml PER PROTOCOL IV ; Start 03/06/19 at 23:30 Aspirin (Halfprin) 81 mg DAILY PO Last administered on 03/11/19at 09:34; Admin Dose 81 MG; Start 03/07/19 at 09:00 Levothyroxine Sodium (Synthroid) 200 mcg DAILY@0600 PO Last administered on 03/11/19at 06:02; Admin Dose 200 MCG; Start 03/07/19 at 06:00 Fluticasone/ Vilanterol (Breo Ellipta 200-25 Mcg Inh) 1 inh DAILY INH Last administered on 03/11/19at 09:33; Admin Dose 1 INH; Start 03/07/19 at 09:00 Atorvastatin Calcium (Lipitor) 80 mg DAILY@21 PO Last administered on 03/10/19at 20:43; Admin Dose 80 MG; Start 03/07/19 at 21:00 Hydralazine HCl (Apresoline) 10 mg Q4H PRN IV ELEVATED SYSTOLIC BP; Start 03/07/19 at 03:00 Nicotine (Nicoderm 21 Mg/ 24hr) 1 patch DAILY TRANSDERM Last administered on 03/11/19at 09:33; Admin Dose 1 PATCH; Start 03/07/19 at 03:00 Eye Lubricant (Artificial Tears Oph) 2 drop Q6H PRN BOTH EYES DRY EYES; Start 03/07/19 at 03:00 Miscellaneous Information 1 ea NOTE XX ; Start 03/07/19 at 03:00 Glucose (Glutose) 15 gm Q15M PRN PO DECREASED GLUCOSE; Start 03/07/19 at 03:00 Glucose (Glutose) 22.5 gm Q15M PRN PO DECREASED GLUCOSE; Start 03/07/19 at 03:00 Dextrose (D50w Syringe) 25 ml Q15M PRN IV DECREASED GLUCOSE; Start 03/07/19 at 03:00 Dextrose (D50w Syringe) 50 ml Q15M PRN IV DECREASED GLUCOSE; Start 03/07/19 at 03:00 Glucagon (Glucagen) 1 mg Q15M PRN IM DECREASED GLUCOSE; Start 03/07/19 at 03:00 Glucose (Glutose) 15 gm Q15M PRN BUCCAL DECREASED GLUCOSE; Start 03/07/19 at 03:00 Insulin Glargine (Lantus) 10 units DAILY@0800 SC ; Start 03/07/19 at 08:00; S tatus Hold Insulin Aspart (Novolog Insulin Pen) NOVOLOG *MODERATE* ALGORI... Q4 SC ; Start 03/07/19 at 09:00; Status Hold Propofol 100 ml @ 2.547 mls/ hr PER PROTOCOL IV Last administered on 03/10/19at 07:07; Admin Dose 25.47 MLS/HR; Start 03/07/19 at 08:30 Norepinephrine 250 ml @ 1.875 mls/ hr PER PROTOCOL IV ; Start 03/07/19 at 09:00 Heparin Sodium (Porcine) (Heparin (5000 Units/1ml)) 5,000 unit Q8 SC Last administered on 03/11/19 06:12; Admin Dose 5,000 UNIT; Start 03/07/19 at 14:00 Famotidine (Pepcid Iv) 20 mg BID IV Last administered on 03/11/19 09:42; Admin Dose 20 MG; Start 03/07/19 at 09:30 Piperacillin Sod/ Tazobactam Sod 100 ml @ 200 mls/hr Q6 IVPB Last administered on 03/11/19 06:02; Admin Dose 200 MLS/HR; Start 03/07/19 at 12:00 Amlodipine Besylate (Norvasc) 10 mg DAILY NGT Last administered on 03/11/19 09:34; Admin Dose 10 MG; Start 03/09/19 at 14:00 Hydralazine HCl (Apresoline) 10 mg Q4H PRN IV SBP>160 Last administered on 03/09/19 15:50; Admin Dose 10 MG; Start 03/09/19 at 14:00 Metformin HCl (Glucophage) 500 mg BID WITH MEALS NGT Last administered on 03/11/19 09:33; Admin Dose 500 MG; Start 03/10/19 at 09:30 Pioglitazone HCl (Actos) 15 mg DAILY NGT Last administered on 03/11/19 09:33; Admin Dose 15 MG; Start 03/10/19 at 10:30 Methylprednisolone Sodium Succinate (Solu-Medrol) 40 mg Q12 IV Last administered on 03/11/19 09:32; Admin Dose 40 MG; Start 03/10/19 at 21:00 Insulin Human NPH (Humulin N) 6 unit Q12 SC Last administered on 03/11/19 09:30; Admin Dose 6 UNIT; Start 03/10/19 at 21:00 Albuterol/ Ipratropium (Duoneb) 3 ml Q4HWA RESP THERAPY HHN Last administered on 03/11/19 09:38; Admin Dose 3 ML; Start 03/10/19 at 17:00 Lorazepam (Ativan) 1 mg Q8H PRN IV ANXIETY Last administered on 03/11/19 09:32; Admin Dose 1 MG; Start 03/10/19 at 19:30 Docusate Sodium (Colace Liquid Cup) 100 mg BID NGT ; Start 03/11/19 at 10:30 Magnesium Hydroxide (Milk Of Mag) 30 ml DAILY PRN PO CONSTIPATION; Start 03/11/19 at 10:30 LUIS ENRIQUE ARCOS MD March 11, 2019 13:41
--- NOTE | 2019-03-11 14:17 | PN ---
Date/Time of Note Date/Time of Note DATE: 03/11/19 TIME: 14:14 Assessment/Plan VTE Prophylaxis Risk score (from Nsg)>0 risk: 8 SCD applied (from Nsg): Yes Pharmacological prophylaxis: heparin Lines/Catheters IV Catheter Type (from Nrsg): Peripheral IV Assessment/Plan Hospital Course 74 yo man with uncontrolled COPD and diabetes presents in COPD exacerbation after leaving another hospital AMA. #Acute hypoxemic and hypercapnic respiratory failure secondary to COPD exacerbation and aspiration pneumonia -Patient now extubated -Continue Zosyn - Scheduled nebulization, IV steroids . #Non-STEMI type II -Stress test once stable - Patient also was complaining of chest discomfort in the setting of acute COPD exacerbation. - Dr Wilson consultation appreciated # diabetes mellitus: -A1c of 9.8 and patient is only on metformin at home, sugars are also acutely elevated secondary to steroids -Endo consultation appreciated -Continue insulin drip # hypertension: Resume patient's home blood pressure medications as able #Debility secondary to prolonged ICU stay -PT and speech therapy # DVT GI prophylaxis: heparin, H2 daniel DC planning: Downgrade to telemetry Result Diagram: 03/11/19 0455 03/11/19 0455 Results 24hrs Laboratory Tests Test 03/10/19 14:22 03/10/19 15:30 03/10/19 18:00 03/10/19 20:44 Bedside Glucose 110 127 81 99 Test 03/11/19 04:55 03/11/19 07:00 03/11/19 08:20 03/11/19 13:09 White Blood Count 7.2 Red Blood Count 6.20 H Hemoglobin 17.9 Hematocrit 57.5 H Mean Corpuscular 92.7 Volume Mean Corpuscular 28.9 L Hemoglobin Mean Corpuscular 31.1 L Hemoglobin Concen t Red Cell 17.9 H Distribution Width Platelet Count 206 Mean Platelet 10.8 H Volume Immature 0.400 Granulocytes % Neutrophils % 84.5 H Lymphocytes % 8.1 L Monocytes % 6.9 Eosinophils % 0.0 Basophils % 0.1 Nucleated Red 0.0 Blood Cells % Immature 0.030 Granulocytes # Neutrophils # 6.0 Lymphocytes # 0.6 L Monocytes # 0.5 Eosinophils # 0.0 Basophils # 0.0 Nucleated Red 0.0 Blood Cells # Sodium Level 144 Potassium Level 3.9 Chloride Level 106 Carbon Dioxide 33 H Level Anion Gap 5 Blood Urea 27 H Nitrogen Creatinine 0.63 Est Glomerular Filtrat Rate mL/min Glucose Level 195 Calcium Level 8.5 Phosphorus Level 6.2 H Magnesium Level 2.0 Thyroid 12.800 H Stimulating Hormone (TSH) Free Thyroxine 1.05 Free 1.84 L Triiodothyronine (T3) pg/mL Blood Gas Blood arterial Specimen Source Arterial Blood 03/11/2019 6:54:0 Date Drawn 5 AM Arterial Blood pH 7.378 (Temp corrected) Arterial Blood 58.6 H pCO2 (Temp correct) Arterial Blood 76.8 L pO2 (Temp corrected) Arterial Blood 33.7 H HCO3 Arterial Blood 6.0 H Base Excess Arterial Blood 94.1 L Oxygen Saturation Ivan Test ACCEPTAB Arterial Blood Left Radial Gas Puncture Site Arterial 0.1 Blood Carboxyhemo globin Arterial Blood 0.3 Methemoglobin Blood Gas A-a O2 90.1 H Differential Oxyhemoglobin 93.7 Percent Blood Gas 37.0 Temperature Blood Gas NASAL CANNULA Modality FiO2 33.0 Blood Gas TM Notified Whom Blood Gas 03/11/2019 7:33:3 Notified Time 7 AM Bedside Glucose 141 187 Subjective 24 Hr Interval Summary Constitutional: disoriented Exam/Review of Systems Exam Vitals Vital Signs Date Temp Pulse Resp B/P (MAP) Pulse Ox O2 O2 Flow FiO2 Time Delivery Rate 03/11/19 73 22 142/72 88 Nasal 4.0 13:00 (95) Cannula 03/11/19 97.8 12:00 03/11/19 50 02:50 Intake and Output 03/10/19 03/10/19 03/11/19 1515:00 23:00 07:00 IntakeIntake Total 534 ml 476 ml 580 ml OutputOutput Total 2830 ml 1420 ml 805 ml BalanceBalance -2296 ml -944 ml -225 ml Constitutional: alert Respiratory: clear to auscultation Cardiovascular: regular rate and rhythm Gastrointestinal: soft; No distended Musculoskeletal: nl extremities to inspection Results Results 24hrs Laboratory Tests Test 03/10/19 14:22 03/10/19 15:30 03/10/19 18:00 03/10/19 20:44 Bedside Glucose 110 127 81 99 Test 03/11/19 04:55 03/11/19 07:00 03/11/19 08:20 03/11/19 13:09 White Blood Count 7.2 Red Blood Count 6.20 H Hemoglobin 17.9 Hematocrit 57.5 H Mean Corpuscular 92.7 Volume Mean Corpuscular 28.9 L Hemoglobin Mean Corpuscular 31.1 L Hemoglobin Concen t Red Cell 17.9 H Distribution Width Platelet Count 206 Mean Platelet 10.8 H Volume Immature 0.400 Granulocytes % Neutrophils % 84.5 H Lymphocytes % 8.1 L Monocytes % 6.9 Eosinophils % 0.0 Basophils % 0.1 Nucleated Red 0.0 Blood Cells % Immature 0.030 Granulocytes # Neutrophils # 6.0 Lymphocytes # 0.6 L Monocytes # 0.5 Eosinophils # 0.0 Basophils # 0.0 Nucleated Red 0.0 Blood Cells # Sodium Level 144 Potassium Level 3.9 Chloride Level 106 Carbon Dioxide 33 H Level Anion Gap 5 Blood Urea 27 H Nitrogen Creatinine 0.63 Est Glomerular Filtrat Rate mL/min Glucose Level 195 Calcium Level 8.5 Phosphorus Level 6.2 H Magnesium Level 2.0 Thyroid 12.800 H Stimulating Hormone (TSH) Free Thyroxine 1.05 Free 1.84 L Triiodothyronine (T3) pg/mL Blood Gas Blood arterial Specimen Source Arterial Blood 03/11/2019 6:54:0 Date Drawn 5 AM Arterial Blood pH 7.378 (Temp corrected) Arterial Blood 58.6 H pCO2 (Temp correct) Arterial Blood 76.8 L pO2 (Temp corrected) Arterial Blood 33.7 H HCO3 Arterial Blood 6.0 H Base Excess Arterial Blood 94.1 L Oxygen Saturation Ivan Test ACCEPTAB Arterial Blood Left Radial Gas Puncture Site Arterial 0.1 Blood Carboxyhemo globin Arterial Blood 0.3 Methemoglobin Blood Gas A-a O2 90.1 H Differential Oxyhemoglobin 93.7 Percent Blood Gas 37.0 Temperature Blood Gas NASAL CANNULA Modality FiO2 33.0 Blood Gas TM Notified Whom Blood Gas 03/11/2019 7:33:3 Notified Time 7 AM Bedside Glucose 141 187 Medications Medication Current Medications IV Flush (NS 3 ml) 3 ml PER PROTOCOL IV ; Start 03/06/19 at 23:30 Aspirin (Halfprin) 81 mg DAILY PO Last administered on 03/11/19at 09:34; Admin Dose 81 MG; Start 03/07/19 at 09:00 Levothyroxine Sodium (Synthroid) 200 mcg DAILY@0600 PO Last administered on 03/11/19at 06:02; Admin Dose 200 MCG; Start 03/07/19 at 06:00 Fluticasone/ Vilanterol (Breo Ellipta 200-25 Mcg Inh) 1 inh DAILY INH Last administered on 03/11/19at 09:33; Admin Dose 1 INH; Start 03/07/19 at 09:00 Atorvastatin Calcium (Lipitor) 80 mg DAILY@21 PO Last administered on 03/10/19at 20:43; Admin Dose 80 MG; Start 03/07/19 at 21:00 Hydralazine HCl (Apresoline) 10 mg Q4H PRN IV ELEVATED SYSTOLIC BP; Start 03/07/19 at 03:00 Nicotine (Nicoderm 21 Mg/ 24hr) 1 patch DAILY TRANSDERM Last administered on 03/11/19at 09:33; Admin Dose 1 PATCH; Start 03/07/19 at 03:00 Eye Lubricant (Artificial Tears Oph) 2 drop Q6H PRN BOTH EYES DRY EYES; Start 03/07/19 at 03:00 Miscellaneous Information 1 ea NOTE XX ; Start 03/07/19 at 03:00 Glucose (Glutose) 15 gm Q15M PRN PO DECREASED GLUCOSE; Start 03/07/19 at 03:00 Glucose (Glutose) 22.5 gm Q15M PRN PO DECREASED GLUCOSE; Start 03/07/19 at 03:00 Dextrose (D50w Syringe) 25 ml Q15M PRN IV DECREASED GLUCOSE; Start 03/07/19 at 03:00 Dextrose (D50w Syringe) 50 ml Q15M PRN IV DECREASED GLUCOSE; Start 03/07/19 at 03:00 Glucagon (Glucagen) 1 mg Q15M PRN IM DECREASED GLUCOSE; Start 03/07/19 at 03:00 Glucose (Glutose) 15 gm Q15M PRN BUCCAL DECREASED GLUCOSE; Start 03/07/19 at 03:00 Insulin Aspart (Novolog Insulin Pen) NOVOLOG *MODERATE* ALGORI... Q4 SC ; Start 03/07/19 at 09:00; Status Hold Propofol 100 ml @ 2.547 mls/ hr PER PROTOCOL IV Last administered on 03/10/19at 07:07; Admin Dose 25.47 MLS/HR; Start 03/07/19 at 08:30 Norepinephrine 250 ml @ 1.875 mls/ hr PER PROTOCOL IV ; Start 03/07/19 at 09:00 Heparin Sodium (Porcine) (Heparin (5000 Units/1ml)) 5,000 unit Q8 SC Last administered on 03/11/19 06:12; Admin Dose 5,000 UNIT; Start 03/07/19 at 14:00 Famotidine (Pepcid Iv) 20 mg BID IV Last administered on 03/11/19 09:42; Admin Dose 20 MG; Start 03/07/19 at 09:30 Piperacillin Sod/ Tazobactam Sod 100 ml @ 200 mls/hr Q6 IVPB Last administered on 03/11/19 06:02; Admin Dose 200 MLS/HR; Start 03/07/19 at 12:00 Amlodipine Besylate (Norvasc) 10 mg DAILY NGT Last administered on 03/11/19 09:34; Admin Dose 10 MG; Start 03/09/19 at 14:00 Hydralazine HCl (Apresoline) 10 mg Q4H PRN IV SBP>160 Last administered on 03/09/19 15:50; Admin Dose 10 MG; Start 03/09/19 at 14:00 Metformin HCl (Glucophage) 500 mg BID WITH MEALS NGT Last administered on 03/11/19 09:33; Admin Dose 500 MG; Start 03/10/19 at 09:30 Pioglitazone HCl (Actos) 15 mg DAILY NGT Last administered on 03/11/19 09:33; Admin Dose 15 MG; Start 03/10/19 at 10:30 Methylprednisolone Sodium Succinate (Solu-Medrol) 40 mg Q12 IV Last administered on 03/11/19 09:32; Admin Dose 40 MG; Start 03/10/19 at 21:00 Insulin Human NPH (Humulin N) 6 unit Q12 SC Last administered on 03/11/19 09:30; Admin Dose 6 UNIT; Start 03/10/19 at 21:00 Albuterol/ Ipratropium (Duoneb) 3 ml Q4HWA RESP THERAPY HHN Last administered on 03/11/19 14:00; Admin Dose 3 ML; Start 03/10/19 at 17:00 Lorazepam (Ativan) 1 mg Q8H PRN IV ANXIETY Last administered on 03/11/19 09:32; Admin Dose 1 MG; Start 03/10/19 at 19:30 Docusate Sodium (Colace Liquid Cup) 100 mg BID NGT ; Start 03/11/19 at 10:30 Magnesium Hydroxide (Milk Of Mag) 30 ml DAILY PRN PO CONSTIPATION; Start 03/11/19 at 10:30 Montelukast Sodium (Singulair) 10 mg HS PO ; Start 03/11/19 at 21:00 Tiotropium [place] (Spiriva) 1 inh DAILY INH ; Start 03/11/19 at 15:00 Diagnostic Test (Pha) (Accu-Chek) 1 ea Q4 XX ; Start 03/11/19 at 17:00 WALLACE COBB March 11, 2019 14:17
[2019-03-11] MEDS: DOCUSATE SODIUM 10 MG/ML (10ML CUP) NGT SCH ×2 (14:51→20:52)
[2019-03-11] MEDS: TIOTROPIUM 18 MCG CAPSULE INHA DEV INH SCH (15:49)
[2019-03-11] MEDS ORDERED: ACCU-CHEK XX SCH (17:00)
[2019-03-11] MEDS: ATORVASTATIN 80 MG TAB PO SCH (20:52)
[2019-03-11] MEDS: MONTELUKAST 10 MG TAB PO SCH (20:52)
[2019-03-11] MEDS: KETOCONAZOLE 2% 15 GM CR TOP SCH (20:55)
[2019-03-11] MEDS: INSULIN ASPART [NOVOLOG] 3 ML PEN SC SCH (20:56)
[2019-03-11] MEDS ORDERED: HALOPERIDOL 5 MG INJ IM ONE (23:00)
[2019-03-11] MEDS ORDERED: LORAZEPAM 2 MG INJ IV ONE (23:00)
[2019-03-12] VITALS (15 sets, daily range): BP systolic 133–186; BP diastolic 73–93; PULSE 69–99; RESP 18–22
[2019-03-12] MEDS ORDERED: DIPHENHYDRAMINE 50 MG INJ IV ONE ×2
[2019-03-12] MEDS ORDERED: LORAZEPAM 2 MG INJ IV ONE (03:00)
[2019-03-12] MEDS: PIPER-TAZO 3.375 GM IV (PMX) 100 ML IVPB SCH ×2 (05:55→11:33)
[2019-03-12] MEDS: LEVOTHYROXINE 100 MCG TAB PO SCH (06:00)
[2019-03-12] MEDS: HEPARIN 5,000 UNIT/1 ML VIAL SC SCH ×3 (06:04→21:45)
--- NOTE | 2019-03-12 07:08 | CONS ---
Assessment/Plan Assessment/Plan Hospital Course (Demo Recall) Encephalopathy:possibly just from sedatives but check ABG for hypercapnia Acute respiratory failure with hypoxia/hypercapnia: Initially due to severe COPD exacerbation with PCO2 160 requiring intubation but CXR post intubation shows a large infiltrate which is likely due to aspiration. Also with CHF from IVF. Now extubated 03/10 Acute diastolic CHF: due to IVF. Diuresed well NSTEMI: mild trops 0.2 x 3. Trend does not suggest ACS but rather type II in setting of above. Echo with preserved EF. Plan for stress testing inpt vs outpt depending on clinical progress and pt willingness to be compliant PNA: likely aspiration as not present on initial CXR. Either happened when he was altered from the hypercapnia or during intubation COPD with severe exacerbation: still wheezing on exam Active tobacco abuse DM HTN -stat ABG and possible BiPAP, defer to pulm -continue ASA, lipitor -amlodipine 10mg -steroids per pulm/primary teams Consultation Date/Type/Reason Admit Date/Time March 06, 2019 at 23:13 Initial Consult Date 03/07/19 Type of Consult Cardiology Requesting Provider: SANDIE LUGO Date/Time of Note DATE: 03/12/19 TIME: 07:06 24 HR Interval Summary Free Text/Dictation More confused and agitated overnight,. Received multiple doses of ativan, haldol, benadryl. Trying to get out of bed and in restraints now Exam/Review of Systems Vital Signs Vitals Vital Signs Date Temp Pulse Resp B/P (MAP) Pulse Ox O2 O2 Flow FiO2 Time Delivery Rate 03/12/19 98.8 69 20 140/81 91 Venturi 06:12 (100) Mask 03/12/19 15.0 50 02:47 Intake and Output 03/11/19 03/11/19 03/12/19 1515:00 23:00 07:00 IntakeIntake Total 630 ml 195 ml 740 ml OutputOutput Total 2460 ml 70 ml 1000 ml BalanceBalance -1830 ml 125 ml -260 ml Exam Constitutional: No alert (somnolent and confused ) Psych: confusion Head: normocephalic, atraumatic Respiratory: diminished breath sounds, wheezing; No clear to auscultation Cardiovascular: regular rate and rhythm; No edema, No systolic murmur Gastrointestinal: soft; No non-tender Neurological: No nl mental status, No nl speech Labs Result Diagram: 03/12/19 0613 03/11/19 0455 Results 24hrs Laboratory Tests Test 03/11/19 08:20 03/11/19 13:09 03/11/19 18:23 03/11/19 20:56 Bedside Glucose 141 187 175 159 Test 03/12/19 06:13 White Blood Count 7.6 Red Blood Count 6.22 H Hemoglobin 18.0 Hematocrit 56.9 H Mean Corpuscular 91.5 Volume Mean Corpuscular 28.9 L Hemoglobin Mean Corpuscular 31.6 L Hemoglobin Concent Red Cell 17.2 H Distribution Width Platelet Count 224 Mean Platelet Volume 11.4 H Immature 0.400 Granulocytes % Neutrophils % 79.5 H Lymphocytes % 10.6 L Monocytes % 9.3 Eosinophils % 0.1 Basophils % 0.1 Nucleated Red Blood 0.0 Cells % Immature 0.030 Granulocytes # Neutrophils # 6.1 Lymphocytes # 0.8 Monocytes # 0.7 Eosinophils # 0.0 Basophils # 0.0 Nucleated Red Blood 0.0 Cells # Medications Medications Current Medications IV Flush (NS 3 ml) 3 ml PER PROTOCOL IV ; Start 03/06/19 at 23:30 Aspirin (Halfprin) 81 mg DAILY PO Last administered on 03/11/19at 09:34; Admin Dose 81 MG; Start 03/07/19 at 09:00 Levothyroxine Sodium (Synthroid) 200 mcg DAILY@0600 PO Last administered on 03/11/19at 06:02; Admin Dose 200 MCG; Start 03/07/19 at 06:00 Fluticasone/ Vilanterol (Breo Ellipta 200-25 Mcg Inh) 1 inh DAILY INH Last administered on 03/11/19at 09:33; Admin Dose 1 INH; Start 03/07/19 at 09:00 Atorvastatin Calcium (Lipitor) 80 mg DAILY@21 PO Last administered on 03/11/19at 20:52; Admin Dose 80 MG; Start 03/07/19 at 21:00 Hydralazine HCl (Apresoline) 10 mg Q4H PRN IV ELEVATED SYSTOLIC BP; Start 03/07/19 at 03:00 Nicotine (Nicoderm 21 Mg/ 24hr) 1 patch DAILY TRANSDERM Last administered on 03/11/19at 09:33; Admin Dose 1 PATCH; Start 03/07/19 at 03:00 Eye Lubricant (Artificial Tears Oph) 2 drop Q6H PRN BOTH EYES DRY EYES; Start 03/07/19 at 03:00 Miscellaneous Information 1 ea NOTE XX ; Start 03/07/19 at 03:00 Glucose (Glutose) 15 gm Q15M PRN PO DECREASED GLUCOSE; Start 03/07/19 at 03:00 Glucose (Glutose) 22.5 gm Q15M PRN PO DECREASED GLUCOSE; Start 03/07/19 at 03:00 Dextrose (D50w Syringe) 25 ml Q15M PRN IV DECREASED GLUCOSE; Start 03/07/19 at 03:00 Dextrose (D50w Syringe) 50 ml Q15M PRN IV DECREASED GLUCOSE; Start 03/07/19 at 03:00 Glucagon (Glucagen) 1 mg Q15M PRN IM DECREASED GLUCOSE; Start 03/07/19 at 03:00 Glucose (Glutose) 15 gm Q15M PRN BUCCAL DECREASED GLUCOSE; Start 03/07/19 at 03:00 Heparin Sodium (Porcine) (Heparin (5000 Units/1ml)) 5,000 unit Q8 SC Last administered on 03/12/19at 06:04; Admin Dose 5,000 UNIT; Start 03/07/19 at 14:00 Famotidine (Pepcid Iv) 20 mg BID IV Last administered on 03/11/19at 20:51; Admin Dose 20 MG; Start 03/07/19 at 09:30 Piperacillin Sod/ Tazobactam Sod 100 ml @ 200 mls/hr Q6 IVPB Last administered on 03/12/19at 05:55; Admin Dose 200 MLS/HR; Start 03/07/19 at 12:00 Amlodipine Besylate (Norvasc) 10 mg DAILY NGT Last administered on 03/11/19at 09:34; Admin Dose 10 MG; Start 03/09/19 at 14:00 Hydralazine HCl (Apresoline) 10 mg Q4H PRN IV SBP>160 Last administered on 03/09/19at 15:50; Admin Dose 10 MG; Start 03/09/19 at 14:00 Metformin HCl (Glucophage) 500 mg BID WITH MEALS NGT Last administered on 03/11/19at 18:52; Admin Dose 500 MG; Start 03/10/19 at 09:30 Pioglitazone HCl (Actos) 15 mg DAILY NGT Last administered on 03/11/19 09:33; Admin Dose 15 MG; Start 03/10/19 at 10:30 Methylprednisolone Sodium Succinate (Solu-Medrol) 40 mg Q12 IV Last administered on 03/11/19 20:51; Admin Dose 40 MG; Start 03/10/19 at 21:00 Insulin Human NPH (Humulin N) 6 unit Q12 SC Last administered on 03/11/19 21:04; Admin Dose 6 UNIT; Start 03/10/19 at 21:00 Albuterol/ Ipratropium (Duoneb) 3 ml Q4HWA RESP THERAPY HHN Last administered on 03/11/19 20:28; Admin Dose 3 ML; Start 03/10/19 at 17:00 Lorazepam (Ativan) 1 mg Q8H PRN IV ANXIETY Last administered on 03/11/19 21:47; Admin Dose 1 MG; Start 03/10/19 at 19:30 Docusate Sodium (Colace Liquid Cup) 100 mg BID NGT Last administered on 03/11/19 20:52; Admin Dose 100 MG; Start 03/11/19 at 10:30 Magnesium Hydroxide (Milk Of Mag) 30 ml DAILY PRN PO CONSTIPATION; Start 03/11/19 at 10:30 Montelukast Sodium (Singulair) 10 mg HS PO Last administered on 03/11/19 20:52; Admin Dose 10 MG; Start 03/11/19 at 21:00 Tiotropium [place] (Spiriva) 1 inh DAILY INH Last administered on 03/11/19at 15:49; Admin Dose 1 INH; Start 03/11/19 at 15:00 Ketoconazole (Nizoral Cr) 1 applic BID TOP Last administered on 03/11/19 20:55; Admin Dose 1 APPLIC; Start 03/11/19 at 21:00 Insulin Aspart (Novolog Insulin Pen) NOVOLOG *MILD* ALGORITHM WITH MEALS BEDTIME SC ; Start 03/11/19 at 21:00 RADU VIVAS March 12, 2019 07:08
[2019-03-12] MEDS: INSULIN ASPART [NOVOLOG] 3 ML PEN SC SCH ×4 (07:55→20:32)
[2019-03-12] MEDS: DOCUSATE SODIUM 10 MG/ML (10ML CUP) NGT SCH ×2 (08:08→21:00)
[2019-03-12] MEDS: AMLODIPINE 10 MG TAB NGT SCH (08:09)
[2019-03-12] MEDS: KETOCONAZOLE 2% 15 GM CR TOP SCH ×2 (08:09→21:32)
[2019-03-12] MEDS: METHYLPREDNISOLONE 40 MG INJ IV SCH (08:10)
[2019-03-12] MEDS: FAMOTIDINE 20 MG INJ IV SCH ×2 (08:10→20:17)
[2019-03-12] MEDS: TIOTROPIUM 18 MCG CAPSULE INHA DEV INH SCH (08:11)
[2019-03-12] MEDS: FLUTICASONE/VILANTEROL 200-25 INH DEVICE INH SCH (08:12)
[2019-03-12] MEDS: NICOTINE (21 MG/24 HR) PATCH TRANSDERM SCH (08:16)
[2019-03-12] MEDS: PIOGLITAZONE 15 MG TAB NGT SCH (08:45)
[2019-03-12] MEDS: metFORMIN 500 MG TAB NGT SCH ×2 (08:46→18:03)
[2019-03-12] MEDS: ALBUTEROL/IPRATROPIUM (NEB) 3 ML AMP HHN SCH ×4 (08:48→20:43)
[2019-03-12] MEDS: NPH, HUMAN INSULIN ISOPHANE 3ML VIAL SC SCH (09:00)
[2019-03-12] MEDS: ASPIRIN (EC) 81 MG TAB PO SCH (09:30)
[2019-03-12] MEDS: LORAZEPAM 2 MG INJ IV PRN ×2 (11:32→19:21)
--- NOTE | 2019-03-12 12:37 | CONS ---
Consult Date/Type/Reason Admit Date/Time March 06, 2019 at 23:13 Initial Consult Date 03/07/19 Type of Consult Pulmonary Requesting Provider: SANDIE LUGO Date/Time of Note DATE: 03/12/19 TIME: 12:37 Subjective Significant confusion and agitation overnight.Is comfortable this morning on Ventimask oxygen. Objective Vital Signs Date Temp Pulse Resp B/P (MAP) Pulse Ox O2 O2 Flow FiO2 Time Delivery Rate 03/12/19 98.3 78 22 163/86 92 Venturi 09:51 (111) Mask 03/12/19 15.0 50 08:49 Intake and Output 03/11/19 03/11/19 03/12/19 1515:00 23:00 07:00 IntakeIntake Total 630 ml 195 ml 740 ml OutputOutput Total 2460 ml 70 ml 1000 ml BalanceBalance -1830 ml 125 ml -260 ml Exam GENERAL: VITAL SIGNS: per chart NECK: Supple. No JVD or lymphadenopathy. CARDIAC EXAM: S1, S2. No added sounds or murmurs. CHEST: clear bilaterally, No added sounds, rales or wheezes ABDOMEN: Soft, nontender. No guarding or rebound. EXTREMITIES: No cyanosis, clubbing or edema. NEUROLOGIC: Generalized weakness. No focal deficits. Well-nourished well- developed gentleman comfortable at rest no acute distress Vent Setting Ventilator Support Mode: CPAP Fraction of Inspired Oxygen pe: 50 Positive End Expiratory Pressu: 5.0 Results/Medications Result Diagram: 03/12/19 0613 03/12/19 0613 Results 24 hrs Laboratory Tests Test 03/11/19 13:09 03/11/19 18:23 03/11/19 20:56 03/12/19 06:13 Bedside Glucose 187 175 159 White Blood Count 7.6 Red Blood Count 6.22 H Hemoglobin 18.0 Hematocrit 56.9 H Mean Corpuscular 91.5 Volume Mean Corpuscular 28.9 L Hemoglobin Mean Corpuscular 31.6 L Hemoglobin Concen t Red Cell 17.2 H Distribution Width Platelet Count 224 Mean Platelet 11.4 H Volume Immature 0.400 Granulocytes % Neutrophils % 79.5 H Lymphocytes % 10.6 L Monocytes % 9.3 Eosinophils % 0.1 Basophils % 0.1 Nucleated Red 0.0 Blood Cells % Immature 0.030 Granulocytes # Neutrophils # 6.1 Lymphocytes # 0.8 Monocytes # 0.7 Eosinophils # 0.0 Basophils # 0.0 Nucleated Red 0.0 Blood Cells # Sodium Level 141 Potassium Level 3.8 Chloride Level 101 Carbon Dioxide 36 H Level Anion Gap 4 L Blood Urea 27 H Nitrogen Creatinine 0.64 Est Glomerular Filtrat Rate mL/min Glucose Level 188 Calcium Level 9.0 Phosphorus Level 4.4 Magnesium Level 2.0 Total Bilirubin 0.8 Direct Bilirubin 0.00 Indirect 0.8 Bilirubin Aspartate Amino 34 Transf (AST/SGOT) Alanine 24 Aminotransferase (ALT/SGPT) Alkaline 48 Phosphatase Total Protein 6.3 Albumin 3.5 Globulin 2.80 Albumin/Globulin 1.25 Ratio Test 03/12/19 06:49 03/12/19 08:42 03/12/19 11:40 Blood Gas Blood arterial Specimen Source Arterial Blood 03/12/2019 7:00:0 Date Drawn 4 AM Arterial Blood pH 7.450 (Temp corrected) Arterial Blood 52.9 H pCO2 (Temp correct) Arterial Blood 72.8 L pO2 (Temp corrected) Arterial Blood 35.9 H HCO3 Arterial Blood 9.3 H Base Excess Arterial Blood 93.1 L Oxygen Saturation Ivan Test ACCEPTAB Arterial Blood Right Radial Gas Puncture Site Arterial 0.3 Blood Carboxyhemo globin Arterial Blood 0.5 Methemoglobin Blood Gas A-a O2 224.2 H Differential Oxyhemoglobin 92.4 L Percent Blood Gas 37.0 Temperature Blood Gas MASK - VENTI Modality FiO2 50.0 Blood Gas TM Notified Whom Blood Gas 03/12/2019 7:07:5 Notified Time 7 AM Bedside Glucose 118 166 Medications Current Medications IV Flush (NS 3 ml) 3 ml PER PROTOCOL IV ; Start 03/06/19 at 23:30 Aspirin (Halfprin) 81 mg DAILY PO Last administered on 03/12/19at 09:30; Admin Dose 81 MG; Start 03/07/19 at 09:00 Levothyroxine Sodium (Synthroid) 200 mcg DAILY@0600 PO Last administered on 03/11/19at 06:02; Admin Dose 200 MCG; Start 03/07/19 at 06:00 Fluticasone/ Vilanterol (Breo Ellipta 200-25 Mcg Inh) 1 inh DAILY INH Last administered on 03/12/19at 08:12; Admin Dose 1 INH; Start 03/07/19 at 09:00 Atorvastatin Calcium (Lipitor) 80 mg DAILY@21 PO Last administered on 03/11/19at 20:52; Admin Dose 80 MG; Start 03/07/19 at 21:00 Hydralazine HCl (Apresoline) 10 mg Q4H PRN IV ELEVATED SYSTOLIC BP; Start 03/07/19 at 03:00 Nicotine (Nicoderm 21 Mg/ 24hr) 1 patch DAILY TRANSDERM Last administered on 03/12/19at 08:16; Admin Dose 1 PATCH; Start 03/07/19 at 03:00 Eye Lubricant (Artificial Tears Oph) 2 drop Q6H PRN BOTH EYES DRY EYES; Start 03/07/19 at 03:00 Miscellaneous Information 1 ea NOTE XX ; Start 03/07/19 at 03:00 Glucose (Glutose) 15 gm Q15M PRN PO DECREASED GLUCOSE; Start 03/07/19 at 03:00 Glucose (Glutose) 22.5 gm Q15M PRN PO DECREASED GLUCOSE; Start 03/07/19 at 03:00 Dextrose (D50w Syringe) 25 ml Q15M PRN IV DECREASED GLUCOSE; Start 03/07/19 at 03:00 Dextrose (D50w Syringe) 50 ml Q15M PRN IV DECREASED GLUCOSE; Start 03/07/19 at 03:00 Glucagon (Glucagen) 1 mg Q15M PRN IM DECREASED GLUCOSE; Start 03/07/19 at 03:00 Glucose (Glutose) 15 gm Q15M PRN BUCCAL DECREASED GLUCOSE; Start 03/07/19 at 03:00 Heparin Sodium (Porcine) (Heparin (5000 Units/1ml)) 5,000 unit Q8 SC Last administered on 03/12/19at 06:04; Admin Dose 5,000 UNIT; Start 03/07/19 at 14:00 Famotidine (Pepcid Iv) 20 mg BID IV Last administered on 03/12/19at 08:10; Admin Dose 20 MG; Start 03/07/19 at 09:30 Piperacillin Sod/ Tazobactam Sod 100 ml @ 200 mls/hr Q6 IVPB Last administered on 03/12/19at 11:33; Admin Dose 200 MLS/HR; Start 03/07/19 at 12:00 Amlodipine Besylate (Norvasc) 10 mg DAILY NGT Last administered on 03/12/19at 08:09; Admin Dose 10 MG; Start 03/09/19 at 14:00 Hydralazine HCl (Apresoline) 10 mg Q4H PRN IV SBP>160 Last administered on 03/09/19 15:50; Admin Dose 10 MG; Start 03/09/19 at 14:00 Metformin HCl (Glucophage) 500 mg BID WITH MEALS NGT Last administered on 03/12 08:46; Admin Dose 500 MG; Start 03/10/19 at 09:30 Pioglitazone HCl (Actos) 15 mg DAILY NGT Last administered on 03/12/19 08:45; Admin Dose 15 MG; Start 03/10/19 at 10:30 Methylprednisolone Sodium Succinate (Solu-Medrol) 40 mg Q12 IV Last administered on 03/12/19 08:10; Admin Dose 40 MG; Start 03/10/19 at 21:00 Insulin Human NPH (Humulin N) 6 unit Q12 SC Last administered on 03/11/19 21 :04; Admin Dose 6 UNIT; Start 03/10/19 at 21:00 Albuterol/ Ipratropium (Duoneb) 3 ml Q4HWA RESP THERAPY HHN Last administered on 03/12/19 08:48; Admin Dose 3 ML; Start 03/10/19 at 17:00 Lorazepam (Ativan) 1 mg Q8H PRN IV ANXIETY Last administered on 03/12/19 11:32; Admin Dose 1 MG; Start 03/10/19 at 19:30 Docusate Sodium (Colace Liquid Cup) 100 mg BID NGT Last administered on 03/12/19 08:08; Admin Dose 100 MG; Start 03/11/19 at 10:30 Magnesium Hydroxide (Milk Of Mag) 30 ml DAILY PRN PO CONSTIPATION; Start 03/11/19 at 10:30 Montelukast Sodium (Singulair) 10 mg HS PO Last administered on 03/11/19 20:52; Admin Dose 10 MG; Start 03/11/19 at 21:00 Tiotropium [place] (Spiriva) 1 inh DAILY INH Last administered on 03/12/19 08:11; Admin Dose 1 INH; Start 03/11/19 at 15:00 Ketoconazole (Nizoral Cr) 1 applic BID TOP Last administered on 03/12/19 08:09; Admin Dose 1 APPLIC; Start 03/11/19 at 21:00 Insulin Aspart (Novolog Insulin Pen) NOVOLOG *MILD* ALGORITHM WITH MEALS BEDTIME SC Last administered on 03/12/19at 12:14; Admin Dose 1 UNIT; Start 03/11/19 at 21:00 Assessment/Plan Hospital Course (Demo Recall) IMPRESSION: 1. Acute hypoxemic and hypercapnic respiratory failure, probable aspiration pneumonia during intubation for COPD exacerbation. 2. Non-ST elevation myocardial infarction, possibly type 2. 3. Underlying history of hypertension. 4. Extensive ongoing tobacco history with chronic obstructive pulmonary disease. Chronic hypercapnic respiratory failure 5. Encephalopathy likely toxic metabolic. PLAN: 1. Supplemental O2 on bilevel ventilation as needed 2. Sputum studies. 3. Steroid taper. 4. Bronchodilators. 5. Cardiology recommendations. 6. DVT and GI prophylaxis. Aspiration precautions. JOSÉ ANTONIO LOJA MD, [facility] March 12, 2019 12:37
--- NOTE | 2019-03-12 14:29 | CONS ---
DATE OF ADMISSION: 03/06/2019 DATE OF CONSULTATION: 03/11/2019 REFERRING PHYSICIAN: Александр Jose MD REASON FOR CONSULTATION: Bilateral foot pain. HISTORY OF PRESENT ILLNESS: This is a 74-year-old gentleman, admitted for acute on chronic COPD exac erbation and hypoxia, has been on nebulizers, steroids and initially intubated, currently extubated. Family is requesting evaluation of the feet. PAST MEDICAL HISTORY: Includes COPD, diabetes type 2, hypertension, grade I diastolic dysfunction, h ypertension, history of tobacco abuse, secondary polycythemia, history of depression, hyperlipidemia. SOCIAL HISTORY: Caffeine 10 cups per day. Social alcohol. ALLERGIES: NONE. PHYSICAL EXAMINATION: VITAL SIGNS: Temperature 97.8, pulse 73, respiratory rate 18, blood pressure is 132/64, pulse ox is 85. GENERAL: The patient is awake, verbal, in no acute distress. EXTREMITIES: With 2+ DP pulse, mild edema bilateral lower extremity, tinea present in bilateral feet . There are mycotic nails, onychogryphosis and pain with palpation. No visible signs of subungual h ematoma or ulceration. No pressure sores noted. The patient is using appropriate mattress. LABORATORIES: WBC 7.2, hemoglobin 17.9, hematocrit 57.5, platelets 206. MICROBIOLOGY: Tracheal aspirate: Skye albicans. Nares is negative for MRSA. Blood cultures: N o growth. ASSESSMENT: 1. Onychomycosis, onychogryphosis. 2. Pain, bilateral feet. 3. Tinea pedis. 4. Edema, bilateral lower extremities. 5. Acute respiratory failure with hypoxia. 6. Acute diastolic congestive heart failure. 7. Non-ST segment elevation myocardial infarction. 8. Asthma. 9. Aspiration pneumonia. 10. Diabetes type 2. PLAN: The patient was seen and evaluated. Nursing recommendations were given. I recommend topical antifungal creams. Nails were debrided x10. No signs of subungual ulceration seen. The patient is with positive respiratory culture with Skye. Consider ID consult. Dictated By: KYE URBANO DPM RB/NTS Conf#: [id number] DID#: [id number] CC: WALLACE COBB MD; RADU VIVAS MD; АЛЕКСАНДР JOSE MD;*EndCC*
--- NOTE | 2019-03-12 15:11 | PN ---
Date/Time of Note Date/Time of Note DATE: 03/12/19 TIME: 15:09 Assessment/Plan VTE Prophylaxis Risk score (from Nsg)>0 risk: 7 SCD applied (from Nsg): Yes Pharmacological prophylaxis: heparin Lines/Catheters IV Catheter Type (from Nrsg): Peripheral IV Assessment/Plan Hospital Course 74 yo man with uncontrolled COPD and diabetes presents in COPD exacerbation after leaving another hospital AMA. #Acute hypoxemic and hypercapnic respiratory failure secondary to COPD exacerbation and aspiration pneumonia -Patient now extubated -Continue Zosyn - Scheduled nebulization, IV steroids . #Delirium with agitation secondary to polypharmacy and prolonged hospital stay -Continue restraints as needed -PT once mentation improved #Non-STEMI type II -Stress test once stable - Patient also was complaining of chest discomfort in the setting of acute COPD exacerbation. - Dr Wilson consultation appreciated # diabetes mellitus: -A1c of 9.8 and patient is only on metformin at home, sugars are also acutely elevated secondary to steroids -Endo consultation appreciated -Continue insulin drip # hypertension: Resume patient's home blood pressure medications as able # DVT GI prophylaxis: heparin, H2 daniel DC planning: PT once mentation improved Result Diagram: 03/12/1913 03/12/1913 Results 24hrs Laboratory Tests Test 03/11/19 18:23 03/11/19 20:56 03/12/19 06:13 03/12/19 06:49 Bedside Glucose 175 159 White Blood 7.6 Count Red Blood Count 6.22 H Hemoglobin 18.0 Hematocrit 56.9 H Mean Corpuscular 91.5 Volume Mean Corpuscular 28.9 L Hemoglobin Mean Corpuscular 31.6 L Hemoglobin Key nt Red Cell 17.2 H Distribution Width Platelet Count 224 Mean Platelet 11.4 H Volume Immature 0.400 Granulocytes % Neutrophils % 79.5 H Lymphocytes % 10.6 L Monocytes % 9.3 Eosinophils % 0.1 Basophils % 0.1 Nucleated Red 0.0 Blood Cells % Immature 0.030 Granulocytes # Neutrophils # 6.1 Lymphocytes # 0.8 Monocytes # 0.7 Eosinophils # 0.0 Basophils # 0.0 Nucleated Red 0.0 Blood Cells # Sodium Level 141 Potassium Level 3.8 Chloride Level 101 Carbon Dioxide 36 H Level Anion Gap 4 L Blood Urea 27 H Nitrogen Creatinine 0.64 Est Glomerular Filtrat Rate mL/min Glucose Level 188 Calcium Level 9.0 Phosphorus Level 4.4 Magnesium Level 2.0 Total Bilirubin 0.8 Direct Bilirubin 0.00 Indirect 0.8 Bilirubin Aspartate Amino 34 Transf (AST/SGOT ) Alanine 24 Aminotransferase (ALT/SGPT) Alkaline 48 Phosphatase Total Protein 6.3 Albumin 3.5 Globulin 2.80 Albumin/Globulin 1.25 Ratio Blood Gas Blood arterial Specimen Source Arterial Blood 03/12/2019 7:00: Date Drawn 04 AM Arterial Blood 7.450 pH (Temp corrected) Arterial Blood 52.9 H pCO2 (Temp correct) Arterial Blood 72.8 L pO2 (Temp corrected) Arterial Blood 35.9 H HCO3 Arterial Blood 9.3 H Base Excess Arterial Blood 93.1 L Oxygen Saturatio n Ivan Test ACCEPTAB Arterial Blood Right Radial Gas Puncture Site Arterial 0.3 Blood Carboxyhem oglobin Arterial Blood 0.5 Methemoglobin Blood Gas A-a O2 224.2 H Differential Oxyhemoglobin 92.4 L Percent Blood Gas 37.0 Temperature Blood Gas MASK - VENTI Modality FiO2 50.0 Blood Gas TM Notified Whom Blood Gas 03/12/2019 7:07: Notified Time 57 AM Test 03/12/19 08:42 03/12/19 11:40 03/12/19 12:38 Bedside Glucose 118 166 Lab Scanned REFERENCE LAB Report Subjective 24 Hr Interval Summary Constitutional: disoriented Exam/Review of Systems Exam Vitals Vital Signs Date Temp Pulse Resp B/P (MAP) Pulse Ox O2 O2 Flow FiO2 Time Delivery Rate 03/12/19 97.7 81 18 146/79 93 Venturi 13:55 (101) Mask 03/12/19 15.0 50 08:49 Intake and Output 03/11/19 03/11/19 03/12/19 1515:00 23:00 07:00 IntakeIntake Total 630 ml 195 ml 740 ml OutputOutput Total 2460 ml 70 ml 1000 ml BalanceBalance -1830 ml 125 ml -260 ml Constitutional: alert Psych: confusion Respiratory: clear to auscultation Cardiovascular: regular rate and rhythm Gastrointestinal: soft; No distended Musculoskeletal: nl extremities to inspection Results Results 24hrs Laboratory Tests Test 03/11/19 18:23 03/11/19 20:56 03/12/19 06:13 03/12/19 06:49 Bedside Glucose 175 159 White Blood 7.6 Count Red Blood Count 6.22 H Hemoglobin 18.0 Hematocrit 56.9 H Mean Corpuscular 91.5 Volume Mean Corpuscular 28.9 L Hemoglobin Mean Corpuscular 31.6 L Hemoglobin Key nt Red Cell 17.2 H Distribution Width Platelet Count 224 Mean Platelet 11.4 H Volume Immature 0.400 Granulocytes % Neutrophils % 79.5 H Lymphocytes % 10.6 L Monocytes % 9.3 Eosinophils % 0.1 Basophils % 0.1 Nucleated Red 0.0 Blood Cells % Immature 0.030 Granulocytes # Neutrophils # 6.1 Lymphocytes # 0.8 Monocytes # 0.7 Eosinophils # 0.0 Basophils # 0.0 Nucleated Red 0.0 Blood Cells # Sodium Level 141 Potassium Level 3.8 Chloride Level 101 Carbon Dioxide 36 H Level Anion Gap 4 L Blood Urea 27 H Nitrogen Creatinine 0.64 Est Glomerular Filtrat Rate mL/min Glucose Level 188 Calcium Level 9.0 Phosphorus Level 4.4 Magnesium Level 2.0 Total Bilirubin 0.8 Direct Bilirubin 0.00 Indirect 0.8 Bilirubin Aspartate Amino 34 Transf (AST/SGOT ) Alanine 24 Aminotransferase (ALT/SGPT) Alkaline 48 Phosphatase Total Protein 6.3 Albumin 3.5 Globulin 2.80 Albumin/Globulin 1.25 Ratio Blood Gas Blood arterial Specimen Source Arterial Blood 03/12/2019 7:00: Date Drawn 04 AM Arterial Blood 7.450 pH (Temp corrected) Arterial Blood 52.9 H pCO2 (Temp correct) Arterial Blood 72.8 L pO2 (Temp corrected) Arterial Blood 35.9 H HCO3 Arterial Blood 9.3 H Base Excess Arterial Blood 93.1 L Oxygen Saturatio n Ivan Test ACCEPTAB Arterial Blood Right Radial Gas Puncture Site Arterial 0.3 Blood Carboxyhem oglobin Arterial Blood 0.5 Methemoglobin Blood Gas A-a O2 224.2 H Differential Oxyhemoglobin 92.4 L Percent Blood Gas 37.0 Temperature Blood Gas MASK - VENTI Modality FiO2 50.0 Blood Gas TM Notified Whom Blood Gas 03/12/2019 7:07: Notified Time 57 AM Test 03/12/19 08:42 03/12/19 11:40 03/12/19 12:38 Bedside Glucose 118 166 Lab Scanned REFERENCE LAB Report Medications Medication Current Medications IV Flush (NS 3 ml) 3 ml PER PROTOCOL IV ; Start 03/06/19 at 23:30 Aspirin (Halfprin) 81 mg DAILY PO Last administered on 03/12/19at 09:30; Admin Dose 81 MG; Start 03/07/19 at 09:00 Levothyroxine Sodium (Synthroid) 200 mcg DAILY@0600 PO Last administered on 02/20 11/09at 06:02; Admin Dose 200 MCG; Start 03/07/19 at 06:00 Fluticasone/ Vilanterol (Breo Ellipta 200-25 Mcg Inh) 1 inh DAILY INH Last administered on 03/12/19at 08:12; Admin Dose 1 INH; Start 03/07/19 at 09:00 Atorvastatin Calcium (Lipitor) 80 mg DAILY@21 PO Last administered on 03/11/19at 20:52; Admin Dose 80 MG; Start 03/07/19 at 21:00 Hydralazine HCl (Apresoline) 10 mg Q4H PRN IV ELEVATED SYSTOLIC BP; Start 03/07/19 at 03:00 Nicotine (Nicoderm 21 Mg/ 24hr) 1 patch DAILY TRANSDERM Last administered on 03/12/19at 08:16; Admin Dose 1 PATCH; Start 03/07/19 at 03:00 Eye Lubricant (Artificial Tears Oph) 2 drop Q6H PRN BOTH EYES DRY EYES; Start 03/07/19 at 03:00 Miscellaneous Information 1 ea NOTE XX ; Start 03/07/19 at 03:00 Glucose (Glutose) 15 gm Q15M PRN PO DECREASED GLUCOSE; Start 03/07/19 at 03:00 Glucose (Glutose) 22.5 gm Q15M PRN PO DECREASED GLUCOSE; Start 03/07/19 at 03:00 Dextrose (D50w Syringe) 25 ml Q15M PRN IV DECREASED GLUCOSE; Start 03/07/19 at 03:00 Dextrose (D50w Syringe) 50 ml Q15M PRN IV DECREASED GLUCOSE; Start 03/07/19 at 03:00 Glucagon (Glucagen) 1 mg Q15M PRN IM DECREASED GLUCOSE; Start 03/07/19 at 03:00 Glucose (Glutose) 15 gm Q15M PRN BUCCAL DECREASED GLUCOSE; Start 03/07/19 at 03:00 Heparin Sodium (Porcine) (Heparin (5000 Units/1ml)) 5,000 unit Q8 SC Last administered on 03/12/19at 14:44; Admin Dose 5,000 UNIT; Start 03/07/19 at 14:00 Famotidine (Pepcid Iv) 20 mg BID IV Last administered on 03/12/19 08:10; Admin Dose 20 MG; Start 03/07/19 at 09:30 Amlodipine Besylate (Norvasc) 10 mg DAILY NGT Last administered on 03/12/19 08:09; Admin Dose 10 MG; Start 03/09/19 at 14:00 Hydralazine HCl (Apresoline) 10 mg Q4H PRN IV SBP>160 Last administered on 03/09/19 15:50; Admin Dose 10 MG; Start 03/09/19 at 14:00 Metformin HCl (Glucophage) 500 mg BID WITH MEALS NGT Last administered on 03/12/19 08:46; Admin Dose 500 MG; Start 03/10/19 at 09:30 Pioglitazone HCl (Actos) 15 mg DAILY NGT Last administered on 03/12/19 08:45; Admin Dose 15 MG; Start 03/10/19 at 10:30 Albuterol/ Ipratropium (Duoneb) 3 ml Q4HWA RESP THERAPY HHN Last administered on 03/12/19 08:48; Admin Dose 3 ML; Start 03/10/19 at 17:00 Lorazepam (Ativan) 1 mg Q8H PRN IV ANXIETY Last administered on 03/12/19 11:32; Admin Dose 1 MG; Start 03/10/19 at 19:30 Docusate Sodium (Colace Liquid Cup) 100 mg BID NGT Last administered on 03/12/19 08:08; Admin Dose 100 MG; Start 03/11/19 at 10:30 Magnesium Hydroxide (Milk Of Mag) 30 ml DAILY PRN PO CONSTIPATION; Start 02/20 11/09 at 10:30 Montelukast Sodium (Singulair) 10 mg HS PO Last administered on 03/11/19 20:52; Admin Dose 10 MG; Start 03/11/19 at 21:00 Tiotropium [place] (Spiriva) 1 inh DAILY INH Last administered on 03/12/19 08:11; Admin Dose 1 INH; Start 03/11/19 at 15:00 Ketoconazole (Nizoral Cr) 1 applic BID TOP Last administered on 03/12/19 08:09; Admin Dose 1 APPLIC; Start 03/11/19 at 21:00 Insulin Aspart (Novolog Insulin Pen) NOVOLOG *MILD* ALGORITHM WITH MEALS BEDTIME SC Last administered on 03/12/19at 12:14; Admin Dose 1 UNIT; Start 03/11/19 at 21:00 Methylprednisolone Sodium Succinate (Solu-Medrol) 40 mg DAILY IV ; Start 03/13/19 at 09:00 Insulin Human NPH (Humulin N) 6 unit DAILY SC ; Start 03/13/19 at 09:00 WALLACE COBB March 12, 2019 15:11
--- NOTE | 2019-03-12 18:50 | CONS ---
Assessment/Plan Assessment/Plan Problems: (1) Diabetes mellitus type 2 in nonobese Status: Chronic Comment: Adequate glycemic control using oral agents. The NPH is being tapered as the steroids are being tapered, thank you to the team for the orders perfectly. (2) Essential hypertension Status: Chronic Comment: Adequate control. (3) Grade I diastolic dysfunction Status: Chronic Comment: Adequate control. (4) COPD exacerbation Status: Acute Comment: As per pulmonary. (5) Noncompliance w/medication treatment due to intermit use of medication Status: Chronic Comment: I am using the approach of placing the patient in absolute control over the medications and giving him for his diabetes. Hopefully by placing him as the master of this he will be more willing to cooperate with our suggestions and recommendations. Consultation Date/Type/Reason Admit Date/Time March 06, 2019 at 23:13 Initial Consult Date 03/07/19 Type of Consult Endocrinology Reason for Consultation Diabetes mellitus type 2 with poor outpatient control; tobacco abuse; COPD; Requesting Provider: SANDIE LUGO Date/Time of Note DATE: 03/12/19 TIME: 18:45 24 HR Interval Summary Free Text/Dictation Patient now is much more able to speak with a clear voice. Is leading and he reports he is happy with the medications that we are using for his diabetes, and is willing to continue those as an outpatient if requested. Constitutional: no complaints Detailed Summary Respiratory: shortness of breath Endocrine: no complaints Exam/Review of Systems Exam Vitals Vital Signs Date Temp Pulse Resp B/P (MAP) Pulse Ox O2 O2 Flow FiO2 Time Delivery Rate 03/12/19 98.3 86 18 138/77 95 Venturi 18:27 (97) Mask 03/12/19 15.0 50 17:15 Intake and Output 03/11/19 03/11/19 03/12/19 1515:00 23:00 07:00 IntakeIntake Total 630 ml 195 ml 740 ml OutputOutput Total 2460 ml 70 ml 1000 ml BalanceBalance -1830 ml 125 ml -260 ml Constitutional: alert, oriented Respiratory: diminished breath sounds, wheezing Cardiovascular: regular rate and rhythm, nl pulses Gastrointestinal: soft, nl liver, spleen, non-tender Results Result Diagram: 03/12/1961203/12/19612 Results 24hrs Laboratory Tests Test 03/11/19 20:56 03/12/19 06:13 03/12/19 06:49 03/12/19 08:42 Bedside Glucose 159 118 White Blood 7.6 Count Red Blood Count 6.22 H Hemoglobin 18.0 Hematocrit 56.9 H Mean Corpuscular 91.5 Volume Mean Corpuscular 28.9 L Hemoglobin Mean Corpuscular 31.6 L Hemoglobin Key nt Red Cell 17.2 H Distribution Width Platelet Count 224 Mean Platelet 11.4 H Volume Immature 0.400 Granulocytes % Neutrophils % 79.5 H Lymphocytes % 10.6 L Monocytes % 9.3 Eosinophils % 0.1 Basophils % 0.1 Nucleated Red 0.0 Blood Cells % Immature 0.030 Granulocytes # Neutrophils # 6.1 Lymphocytes # 0.8 Monocytes # 0.7 Eosinophils # 0.0 Basophils # 0.0 Nucleated Red 0.0 Blood Cells # Sodium Level 141 Potassium Level 3.8 Chloride Level 101 Carbon Dioxide 36 H Level Anion Gap 4 L Blood Urea 27 H Nitrogen Creatinine 0.64 Est Glomerular Filtrat Rate mL/min Glucose Level 188 Calcium Level 9.0 Phosphorus Level 4.4 Magnesium Level 2.0 Total Bilirubin 0.8 Direct Bilirubin 0.00 Indirect 0.8 Bilirubin Aspartate Amino 34 Transf (AST/SGOT ) Alanine 24 Aminotransferase (ALT/SGPT) Alkaline 48 Phosphatase Total Protein 6.3 Albumin 3.5 Globulin 2.80 Albumin/Globulin 1.25 Ratio Blood Gas Blood arterial Specimen Source Arterial Blood 03/12/2019 7:00: Date Drawn 04 AM Arterial Blood 7.450 pH (Temp corrected) Arterial Blood 52.9 H pCO2 (Temp correct) Arterial Blood 72.8 L pO2 (Temp corrected) Arterial Blood 35.9 H HCO3 Arterial Blood 9.3 H Base Excess Arterial Blood 93.1 L Oxygen Saturatio n Ivan Test ACCEPTAB Arterial Blood Right Radial Gas Puncture Site Arterial 0.3 Blood Carboxyhem oglobin Arterial Blood 0.5 Methemoglobin Blood Gas A-a O2 224.2 H Differential Oxyhemoglobin 92.4 L Percent Blood Gas 37.0 Temperature Blood Gas MASK - VENTI Modality FiO2 50.0 Blood Gas TM Notified Whom Blood Gas 03/12/2019 7:07: Notified Time 57 AM Test 03/12/19 11:40 03/12/19 12:38 03/12/19 17:41 Bedside Glucose 166 154 Lab Scanned REFERENCE LAB Report Medications Medication Current Medications IV Flush (NS 3 ml) 3 ml PER PROTOCOL IV ; Start 03/06/19 at 23:30 Aspirin (Halfprin) 81 mg DAILY PO Last administered on 03/12/19at 09:30; Admin Dose 81 MG; Start 03/07/19 at 09:00 Levothyroxine Sodium (Synthroid) 200 mcg DAILY@0600 PO Last administered on 03/11/19at 06:02; Admin Dose 200 MCG; Start 03/07/19 at 06:00 Fluticasone/ Vilanterol (Breo Ellipta 200-25 Mcg Inh) 1 inh DAILY INH Last administered on 03/12/19at 08:12; Admin Dose 1 INH; Start 03/07/19 at 09:00 Atorvastatin Calcium (Lipitor) 80 mg DAILY@21 PO Last administered on 03/11/19at 20:52; Admin Dose 80 MG; Start 03/07/19 at 21:00 Hydralazine HCl (Apresoline) 10 mg Q4H PRN IV ELEVATED SYSTOLIC BP; Start 03/07/19 at 03:00 Nicotine (Nicoderm 21 Mg/ 24hr) 1 patch DAILY TRANSDERM Last administered on 03/12/19at 08:16; Admin Dose 1 PATCH; Start 03/07/19 at 03:00 Eye Lubricant (Artificial Tears Oph) 2 drop Q6H PRN BOTH EYES DRY EYES; Start 03/07/19 at 03:00 Miscellaneous Information 1 ea NOTE XX ; Start 03/07/19 at 03:00 Glucose (Glutose) 15 gm Q15M PRN PO DECREASED GLUCOSE; Start 03/07/19 at 03:00 Glucose (Glutose) 22.5 gm Q15M PRN PO DECREASED GLUCOSE; Start 03/07/19 at 03:00 Dextrose (D50w Syringe) 25 ml Q15M PRN IV DECREASED GLUCOSE; Start 03/07/19 at 03:00 Dextrose (D50w Syringe) 50 ml Q15M PRN IV DECREASED GLUCOSE; Start 03/07/19 at 03:00 Glucagon (Glucagen) 1 mg Q15M PRN IM DECREASED GLUCOSE; Start 03/07/19 at 03:00 Glucose (Glutose) 15 gm Q15M PRN BUCCAL DECREASED GLUCOSE; Start 03/07/19 at 03:00 Heparin Sodium (Porcine) (Heparin (5000 Units/1ml)) 5,000 unit Q8 SC Last administered on 03/12/19 14:44; Admin Dose 5,000 UNIT; Start 03/07/19 at 14:00 Famotidine (Pepcid Iv) 20 mg BID IV Last administered on 03/12/19 08:10; Admin Dose 20 MG; Start 03/07/19 at 09:30 Amlodipine Besylate (Norvasc) 10 mg DAILY NGT Last administered on 03/12/19 08:09; Admin Dose 10 MG; Start 03/09/19 at 14:00 Hydralazine HCl (Apresoline) 10 mg Q4H PRN IV SBP>160 Last administered on 03/09/19 15:50; Admin Dose 10 MG; Start 03/09/19 at 14:00 Metformin HCl (Glucophage) 500 mg BID WITH MEALS NGT Last administered on 03/12/19 18:03; Admin Dose 500 MG; Start 03/10/19 at 09:30 Pioglitazone HCl (Actos) 15 mg DAILY NGT Last administered on 03/12/19 08:45; Admin Dose 15 MG; Start 03/10/19 at 10:30 Albuterol/ Ipratropium (Duoneb) 3 ml Q4HWA RESP THERAPY HHN Last administered on 03/12/19 17:05; Admin Dose 3 ML; Start 03/10/19 at 17:00 Lorazepam (Ativan) 1 mg Q8H PRN IV ANXIETY Last administered on 03/12/19 11:32; Admin Dose 1 MG; Start 03/10/19 at 19:30 Docusate Sodium (Colace Liquid Cup) 100 mg BID NGT Last administered on 03/12/19 08:08; Admin Dose 100 MG; Start 03/11/19 at 10:30 Magnesium Hydroxide (Milk Of Mag) 30 ml DAILY PRN PO CONSTIPATION; Start 03/11/19 at 10:30 Montelukast Sodium (Singulair) 10 mg HS PO Last administered on 03/11/19 20:52; Admin Dose 10 MG; Start 03/11/19 at 21:00 Tiotropium [place] (Spiriva) 1 inh DAILY INH Last administered on 03/12/19 08:11; Admin Dose 1 INH; Start 03/11/19 at 15:00 Ketoconazole (Nizoral Cr) 1 applic BID TOP Last administered on 03/12/19at 08:09; Admin Dose 1 APPLIC; Start 03/11/19 at 21:00 Insulin Aspart (Novolog Insulin Pen) NOVOLOG *MILD* ALGORITHM WITH MEALS BEDTIME SC Last administered on 03/12/19at 18:15; Admin Dose 1 UNIT; Start 03/11/19 at 21:00 Methylprednisolone Sodium Succinate (Solu-Medrol) 40 mg DAILY IV ; Start 03/13/19 at 09:00 Insulin Human NPH (Humulin N) 6 unit DAILY SC ; Start 03/13/19 at 09:00 LUIS ENRIQUE ARCOS MD March 12, 2019 18:49
[2019-03-12] MEDS: MONTELUKAST 10 MG TAB PO SCH (20:17)
[2019-03-12] MEDS: ATORVASTATIN 80 MG TAB PO SCH (20:17)
[2019-03-12] MEDS: TERBINAFINE 250 MG TAB PO SCH (21:32)
[2019-03-13] VITALS (14 sets, daily range): BP systolic 113–141; BP diastolic 66–80; PULSE 71–86; RESP 16–20
[2019-03-13] MEDS ORDERED: DIPHENHYDRAMINE 50 MG INJ IV ONE (00:30)
[2019-03-13] MEDS ORDERED: HALOPERIDOL 5 MG INJ IM ONE ×2 (00:30→22:30)
[2019-03-13] MEDS ORDERED: LORAZEPAM 2 MG INJ IV ONE ×2 (02:30→22:30)
[2019-03-13] MEDS: LEVOTHYROXINE 100 MCG TAB PO SCH (05:44)
[2019-03-13] MEDS: HEPARIN 5,000 UNIT/1 ML VIAL SC SCH ×3 (06:04→23:35)
[2019-03-13] MEDS: DOCUSATE SODIUM 10 MG/ML (10ML CUP) NGT SCH ×2 (08:24→20:15)
[2019-03-13] MEDS: METHYLPREDNISOLONE 40 MG INJ IV SCH (08:24)
[2019-03-13] MEDS: FAMOTIDINE 20 MG INJ IV SCH ×2 (08:25→20:16)
[2019-03-13] MEDS: ASPIRIN (EC) 81 MG TAB PO SCH (08:25)
[2019-03-13] MEDS: TERBINAFINE 250 MG TAB PO SCH ×2 (08:25→20:15)
[2019-03-13] MEDS: PIOGLITAZONE 15 MG TAB NGT SCH (08:25)
[2019-03-13] MEDS: metFORMIN 500 MG TAB NGT SCH (08:25)
[2019-03-13] MEDS: AMLODIPINE 10 MG TAB NGT SCH (08:26)
[2019-03-13] MEDS: NICOTINE (21 MG/24 HR) PATCH TRANSDERM SCH (08:28)
[2019-03-13] MEDS: KETOCONAZOLE 2% 15 GM CR TOP SCH ×2 (08:29→20:17)
[2019-03-13] MEDS: FLUTICASONE/VILANTEROL 200-25 INH DEVICE INH SCH (09:00)
[2019-03-13] MEDS: TIOTROPIUM 18 MCG CAPSULE INHA DEV INH SCH (09:00)
[2019-03-13] MEDS: NPH, HUMAN INSULIN ISOPHANE 3ML VIAL SC SCH (09:48)
[2019-03-13] MEDS: INSULIN ASPART [NOVOLOG] 3 ML PEN SC SCH ×4 (09:48→20:20)
[2019-03-13] MEDS: ALBUTEROL/IPRATROPIUM (NEB) 3 ML AMP HHN SCH ×4 (10:04→20:41)
--- NOTE | 2019-03-13 10:39 | CONS ---
Assessment/Plan Assessment/Plan Hospital Course (Demo Recall) Acute respiratory failure with hypoxia/hypercapnia: Initially due to severe COPD exacerbation with PCO2 160 requiring intubation but CXR post intubation shows a large infiltrate which is likely due to aspiration. Also with CHF from IVF. Now extubated 03/10. Still on high oxygen requirements Acute diastolic CHF: due to IVF. Diuresed well NSTEMI: mild trops 0.2 x 3. Trend does not suggest ACS but rather type II in setting of above. Echo with preserved EF. Plan for stress testing outpt depending on clinical progress and pt willingness to be compliant PNA: likely aspiration as not present on initial CXR. Either happened when he was altered from the hypercapnia or during intubation COPD with severe exacerbation: still wheezing on exam Active tobacco abuse DM HTN -continue ASA, lipitor -amlodipine 10mg -steroids per pulm/primary teams Consultation Date/Type/Reason Admit Date/Time March 06, 2019 at 23:13 Initial Consult Date 03/07/19 Type of Consult Cardiology Requesting Provider: SANDIE LUGO Date/Time of Note DATE: 03/13/19 TIME: 10:37 24 HR Interval Summary Free Text/Dictation Episodes of sundowning at nights still. Still requiring high amounts of oxygen. Currently sleeping. at bedside updated Exam/Review of Systems Vital Signs Vitals Vital Signs Date Temp Pulse Resp B/P (MAP) Pulse Ox O2 O2 Flow FiO2 Time Delivery Rate 03/13/19 77 20 90 Venti Mask 15.0 50 10:04 03/13/19 98.4 130/68 07:49 (88) Intake and Output 03/12/19 03/12/19 03/13/19 1515:00 23:00 07:00 IntakeIntake Total 540 ml OutputOutput Total 1100 ml BalanceBalance -560 ml Exam Constitutional: No alert Neck: supple; No jvd Respiratory: diminished breath sounds; No clear to auscultation Cardiovascular: regular rate and rhythm, edema; No systolic murmur Gastrointestinal: soft, non-tender; No distended Neurological: No nl mental status, No nl speech Labs Result Diagram: 03/12/19 0613 03/12/19 0613 Results 24hrs Laboratory Tests Test 03/12/19 11:40 03/12/19 12:38 03/12/19 17:41 03/12/19 20:31 Bedside Glucose 166 154 143 Lab Scanned Report REFERENCE LAB Test 03/13/19 08:13 Bedside Glucose 145 Medications Medications Current Medications IV Flush (NS 3 ml) 3 ml PER PROTOCOL IV ; Start 03/06/19 at 23:30 Aspirin (Halfprin) 81 mg DAILY PO Last administered on 03/13/19 08:25; Admin Dose 81 MG; Start 03/07/19 at 09:00 Levothyroxine Sodium (Synthroid) 200 mcg DAILY@0600 PO Last administered on 03/13/19at 05:44; Admin Dose 200 MCG; Start 03/07/19 at 06:00 Fluticasone/ Vilanterol (Breo Ellipta 200-25 Mcg Inh) 1 inh DAILY INH Last administered on 03/12/19at 08:12; Admin Dose 1 INH; Start 03/07/19 at 09:00 Atorvastatin Calcium (Lipitor) 80 mg DAILY@21 PO Last administered on 03/12/19at 20:17; Admin Dose 80 MG; Start 03/07/19 at 21:00 Hydralazine HCl (Apresoline) 10 mg Q4H PRN IV ELEVATED SYSTOLIC BP Last administered on 03/12/19at 20:19; Admin Dose 10 MG; Start 03/07/19 at 03:00 Nicotine (Nicoderm 21 Mg/ 24hr) 1 patch DAILY TRANSDERM Last administered on 03/13/19at 08:28; Admin Dose 1 PATCH; Start 03/07/19 at 03:00 Eye Lubricant (Artificial Tears Oph) 2 drop Q6H PRN BOTH EYES DRY EYES; Start 03/07/19 at 03:00 Miscellaneous Information 1 ea NOTE XX ; Start 03/07/19 at 03:00 Glucose (Glutose) 15 gm Q15M PRN PO DECREASED GLUCOSE; Start 03/07/19 at 03:00 Glucose (Glutose) 22.5 gm Q15M PRN PO DECREASED GLUCOSE; Start 03/07/19 at 03:00 Dextrose (D50w Syringe) 25 ml Q15M PRN IV DECREASED GLUCOSE; Start 03/07/19 at 03:00 Dextrose (D50w Syringe) 50 ml Q15M PRN IV DECREASED GLUCOSE; Start 03/07/19 at 03:00 Glucagon (Glucagen) 1 mg Q15M PRN IM DECREASED GLUCOSE; Start 03/07/19 at 03:00 Glucose (Glutose) 15 gm Q15M PRN BUCCAL DECREASED GLUCOSE; Start 03/07/19 at 03:00 Heparin Sodium (Porcine) (Heparin (5000 Units/1ml)) 5,000 unit Q8 SC Last administered on 03/13/19 06:04; Admin Dose 5,000 UNIT; Start 03/07/19 at 14:00 Famotidine (Pepcid Iv) 20 mg BID IV Last administered on 03/13/19 08:25; Admin Dose 20 MG; Start 03/07/19 at 09:30 Amlodipine Besylate (Norvasc) 10 mg DAILY NGT Last administered on 03/13/19 08:26; Admin Dose 10 MG; Start 03/09/19 at 14:00 Hydralazine HCl (Apresoline) 10 mg Q4H PRN IV SBP>160 Last administered on 03/09/19 15:50; Admin Dose 10 MG; Start 03/09/19 at 14:00 Metformin HCl (Glucophage) 500 mg BID WITH MEALS NGT Last administered on 03/13/19 08:25; Admin Dose 500 MG; Start 03/10/19 at 09:30 Pioglitazone HCl (Actos) 15 mg DAILY NGT Last administered on 03/13/19 08:25; Admin Dose 15 MG; Start 03/10/19 at 10:30 Albuterol/ Ipratropium (Duoneb) 3 ml Q4HWA RESP THERAPY HHN Last administered on 03/13/19 10:04; Admin Dose 3 ML; Start 03/10/19 at 17:00 Lorazepam (Ativan) 1 mg Q8H PRN IV ANXIETY Last administered on 03/12/19 19:21; Admin Dose 1 MG; Start 03/10/19 at 19:30 Docusate Sodium (Colace Liquid Cup) 100 mg BID NGT Last administered on 03/13/19 08:24; Admin Dose 100 MG; Start 03/11/19 at 10:30 Magnesium Hydroxide (Milk Of Mag) 30 ml DAILY PRN PO CONSTIPATION; Start 03/11/19 at 10:30 Montelukast Sodium (Singulair) 10 mg HS PO Last administered on 03/12/19 20:17; Admin Dose 10 MG; Start 03/11/19 at 21:00 Tiotropium [place] (Spiriva) 1 inh DAILY INH Last administered on 03/12/19 08:11; Admin Dose 1 INH; Start 03/11/19 at 15:00 Ketoconazole (Nizoral Cr) 1 applic BID TOP Last administered on 03/13/19 08:29; Admin Dose 1 APPLIC; Start 03/11/19 at 21:00 Insulin Aspart (Novolog Insulin Pen) NOVOLOG *MILD* ALGORITHM WITH MEALS BEDTIME SC Last administered on 03/13/19 09:48; Admin Dose 1 UNIT; Start 03/11/19 at 21:00 Methylprednisolone Sodium Succinate (Solu-Medrol) 40 mg DAILY IV Last administered on 03/13/19 08:24; Admin Dose 40 MG; Start 03/13/19 at 09:00 Insulin Human NPH (Humulin N) 6 unit DAILY SC Last administered on 03/13/19 09:48; Admin Dose 6 UNIT; Start 03/13/19 at 09:00 Terbinafine HCl (Lamisil) 250 mg BID PO Last administered on 03/13/19 08:25; Admin Dose 250 MG; Start 03/12/19 at 21:00; Stop 03/19/19 at 20:59 RADU VIVAS March 13, 2019 10:39
--- NOTE | 2019-03-13 11:15 | CONS ---
Consult Date/Type/Reason Admit Date/Time March 06, 2019 at 23:13 Initial Consult Date 03/07/19 Type of Consult Pulmonary Requesting Provider: SANDIE LUGO Date/Time of Note DATE: 03/13/19 TIME: 11:14 Subjective Patient comfortable this morning. No new event still somewhat confused. Objective Vital Signs Date Temp Pulse Resp B/P (MAP) Pulse Ox O2 O2 Flow FiO2 Time Delivery Rate 03/13/19 77 20 90 Venti Mask 15.0 50 10:04 03/13/19 98.4 130/68 07:49 (88) Intake and Output 03/12/19 03/12/19 03/13/19 1515:00 23:00 07:00 IntakeIntake Total 540 ml OutputOutput Total 1100 ml BalanceBalance -560 ml Exam GENERAL: VITAL SIGNS: per chart NECK: Supple. No JVD or lymphadenopathy. CARDIAC EXAM: S1, S2. No added sounds or murmurs. CHEST: Diminished air entry bilaterally with few rales ABDOMEN: Soft, nontender. No guarding or rebound. EXTREMITIES: No cyanosis, clubbing or edema. NEUROLOGIC: Generalized weakness. Intermittent agitation Vent Setting Ventilator Support Mode: CPAP Fraction of Inspired Oxygen pe: 50 Positive End Expiratory Pressu: 5.0 Results/Medications Result Diagram: 03/12/1961203/12/19612 Results 24 hrs Laboratory Tests Test 03/12/19 11:40 03/12/19 12:38 03/12/19 17:41 03/12/19 20:31 Bedside Glucose 166 154 143 Lab Scanned Report REFERENCE LAB Test 03/13/19 08:13 Bedside Glucose 145 Medications Current Medications IV Flush (NS 3 ml) 3 ml PER PROTOCOL IV ; Start 03/06/19 at 23:30 Aspirin (Halfprin) 81 mg DAILY PO Last administered on 03/13/19at 08:25; Admin Dose 81 MG; Start 03/07/19 at 09:00 Levothyroxine Sodium (Synthroid) 200 mcg DAILY@0600 PO Last administered on 03/13/19at 05:44; Admin Dose 200 MCG; Start 03/07/19 at 06:00 Fluticasone/ Vilanterol (Breo Ellipta 200-25 Mcg Inh) 1 inh DAILY INH Last administered on 03/12/19at 08:12; Admin Dose 1 INH; Start 03/07/19 at 09:00 Atorvastatin Calcium (Lipitor) 80 mg DAILY@21 PO Last administered on 03/12/19at 20:17; Admin Dose 80 MG; Start 03/07/19 at 21:00 Hydralazine HCl (Apresoline) 10 mg Q4H PRN IV ELEVATED SYSTOLIC BP Last administered on 03/12/19at 20:19; Admin Dose 10 MG; Start 03/07/19 at 03:00 Nicotine (Nicoderm 21 Mg/ 24hr) 1 patch DAILY TRANSDERM Last administered on 03/13/19at 08:28; Admin Dose 1 PATCH; Start 03/07/19 at 03:00 Eye Lubricant (Artificial Tears Oph) 2 drop Q6H PRN BOTH EYES DRY EYES; Start 03/07/19 at 03:00 Miscellaneous Information 1 ea NOTE XX ; Start 03/07/19 at 03:00 Glucose (Glutose) 15 gm Q15M PRN PO DECREASED GLUCOSE; Start 03/07/19 at 03:00 Glucose (Glutose) 22.5 gm Q15M PRN PO DECREASED GLUCOSE; Start 03/07/19 at 03:00 Dextrose (D50w Syringe) 25 ml Q15M PRN IV DECREASED GLUCOSE; Start 03/07/19 at 03:00 Dextrose (D50w Syringe) 50 ml Q15M PRN IV DECREASED GLUCOSE; Start 03/07/19 at 03:00 Glucagon (Glucagen) 1 mg Q15M PRN IM DECREASED GLUCOSE; Start 03/07/19 at 03:00 Glucose (Glutose) 15 gm Q15M PRN BUCCAL DECREASED GLUCOSE; Start 03/07/19 at 03:00 Heparin Sodium (Porcine) (Heparin (5000 Units/1ml)) 5,000 unit Q8 SC Last administered on 03/13/19at 06:04; Admin Dose 5,000 UNIT; Start 03/07/19 at 14:00 Famotidine (Pepcid Iv) 20 mg BID IV Last administered on 03/13/19at 08:25; Admin Dose 20 MG; Start 03/07/19 at 09:30 Amlodipine Besylate (Norvasc) 10 mg DAILY NGT Last administered on 03/13/19at 08:26; Admin Dose 10 MG; Start 03/09/19 at 14:00 Hydralazine HCl (Apresoline) 10 mg Q4H PRN IV SBP>160 Last administered on 03/09/19 15:50; Admin Dose 10 MG; Start 03/09/19 at 14:00 Metformin HCl (Glucophage) 500 mg BID WITH MEALS NGT Last administered on 03/13/19 08:25; Admin Dose 500 MG; Start 03/10/19 at 09:30 Pioglitazone HCl (Actos) 15 mg DAILY NGT Last administered on 03/13/19 08:25; Admin Dose 15 MG; Start 03/10/19 at 10:30 Albuterol/ Ipratropium (Duoneb) 3 ml Q4HWA RESP THERAPY HHN Last administered on 03/13/19 10:04; Admin Dose 3 ML; Start 03/10/19 at 17:00 Lorazepam (Ativan) 1 mg Q8H PRN IV ANXIETY Last administered on 03/12/19 19:21; Admin Dose 1 MG; Start 03/10/19 at 19:30 Docusate Sodium (Colace Liquid Cup) 100 mg BID NGT Last administered on 03/13/19 08:24; Admin Dose 100 MG; Start 03/11/19 at 10:30 Magnesium Hydroxide (Milk Of Mag) 30 ml DAILY PRN PO CONSTIPATION; Start 03/11/19 at 10:30 Montelukast Sodium (Singulair) 10 mg HS PO Last administered on 03/12/19 20:17; Admin Dose 10 MG; Start 03/11/19 at 21:00 Tiotropium [place] (Spiriva) 1 inh DAILY INH Last administered on 03/12/19 08:11; Admin Dose 1 INH; Start 03/11/19 at 15:00 Ketoconazole (Nizoral Cr) 1 applic BID TOP Last administered on 03/13/19 08:29; Admin Dose 1 APPLIC; Start 03/11/19 at 21:00 Insulin Aspart (Novolog Insulin Pen) NOVOLOG *MILD* ALGORITHM WITH MEALS BEDTIME SC Last administered on 03/13/19 09:48; Admin Dose 1 UNIT; Start 03/11/19 at 21:00 Methylprednisolone Sodium Succinate (Solu-Medrol) 40 mg DAILY IV Last administered on 03/13/19 08:24; Admin Dose 40 MG; Start 03/13/19 at 09:00 Insulin Human NPH (Humulin N) 6 unit DAILY SC Last administered on 03/13/19at 09:48; Admin Dose 6 UNIT; Start 03/13/19 at 09:00 Terbinafine HCl (Lamisil) 250 mg BID PO Last administered on 03/13/19at 08:25; Admin Dose 250 MG; Start 03/12/19 at 21:00; Stop 03/19/19 at 20:59 Assessment/Plan Hospital Course (Demo Recall) IMPRESSION: 1. Acute hypoxemic and hypercapnic respiratory failure, probable aspiration pneumonia during intubation for COPD exacerbation. 2. Non-ST elevation myocardial infarction, possibly type 2. 3. Underlying history of hypertension. 4. Extensive ongoing tobacco history with chronic obstructive pulmonary disease. Chronic hypercapnic respiratory failure 5. Encephalopathy likely toxic metabolic. PLAN: 1. Supplemental O2 on bilevel ventilation as needed 2. Sputum studies. 3. Steroid taper. 4. Bronchodilators. 5. Cardiology recommendations. 6. DVT and GI prophylaxis. Vinson evaluation JOSÉ ANTONIO LOJA MD, [facility] March 13, 2019 11:15
[2019-03-13] MEDS: FUROSEMIDE 40 MG INJ IV SCH (11:39)
--- NOTE | 2019-03-13 18:09 | CONS ---
Assessment/Plan Assessment/Plan Problems: (1) Diabetes mellitus type 2 in nonobese Status: Chronic Comment: Adequate glycemic control. He still on NG tube feeding however it is quite possible he will be able to be transitioned after speech therapy clears him assuming that they are able to clear him tomorrow. (2) Tobacco abuse Status: Chronic Comment: On nicotine patch at this time (3) COPD with acute exacerbation Status: Chronic Comment: Improving with careful treatment from our pulmonary colleagues and the rest of the hospital team (4) Secondary polycythemia Status: Chronic Comment: Noted. (5) Essential hypertension Status: Chronic Comment: Adequate control (6) Grade I diastolic dysfunction Status: Chronic Comment: Adequate control Consultation Date/Type/Reason Admit Date/Time March 06, 2019 at 23:13 Initial Consult Date 03/07/19 Type of Consult Endocrinology Reason for Consultation Diabetes mellitus type 2; COPD; nicotine dependency; Requesting Provider: SANDIE LUGO Date/Time of Note DATE: 03/13/19 TIME: 18:06 24 HR Interval Summary Free Text/Dictation She is more awake and clearheaded today. Detailed Summary Respiratory: shortness of breath Endocrine: no complaints Exam/Review of Systems Exam Vitals Vital Signs Date Temp Pulse Resp B/P (MAP) Pulse Ox O2 O2 Flow FiO2 Time Delivery Rate 03/13/19 81 17:30 03/13/19 20 93 Venti Mask 15.0 50 16:58 03/13/19 97.5 113/67 16:20 (82) Intake and Output 03/12/19 03/12/19 03/13/19 1515:00 23:00 07:00 IntakeIntake Total 540 ml OutputOutput Total 1100 ml BalanceBalance -560 ml Constitutional: alert, oriented Respiratory: diminished breath sounds, wheezing Cardiovascular: regular rate and rhythm, nl pulses Gastrointestinal: soft, nl liver, spleen, non-tender Results Result Diagram: 03/12/1961203/12/19612 Results 24hrs Laboratory Tests Test 03/12/19 20:31 03/13/19 08:13 03/13/19 11:22 Bedside Glucose 143 145 171 Medications Medication Current Medications IV Flush (NS 3 ml) 3 ml PER PROTOCOL IV ; Start 03/06/19 at 23:30 Aspirin (Halfprin) 81 mg DAILY PO Last administered on 03/13/19at 08:25; Admin Dose 81 MG; Start 03/07/19 at 09:00 Levothyroxine Sodium (Synthroid) 200 mcg DAILY@0600 PO Last administered on 03/13/19 05:44; Admin Dose 200 MCG; Start 03/07/19 at 06:00 Fluticasone/ Vilanterol (Breo Ellipta 200-25 Mcg Inh) 1 inh DAILY INH Last administered on 03/12/19 08:12; Admin Dose 1 INH; Start 03/07/19 at 09:00 Atorvastatin Calcium (Lipitor) 80 mg DAILY@21 PO Last administered on 03/12/19 20:17; Admin Dose 80 MG; Start 03/07/19 at 21:00 Hydralazine HCl (Apresoline) 10 mg Q4H PRN IV ELEVATED SYSTOLIC BP Last admi nistered on 03/12/19 20:19; Admin Dose 10 MG; Start 03/07/19 at 03:00 Nicotine (Nicoderm 21 Mg/ 24hr) 1 patch DAILY TRANSDERM Last administered on 03/13/19 08:28; Admin Dose 1 PATCH; Start 03/07/19 at 03:00 Eye Lubricant (Artificial Tears Oph) 2 drop Q6H PRN BOTH EYES DRY EYES Last administered on 03/13/19 11:40; Admin Dose 2 DROP; Start 03/07/19 at 03:00 Miscellaneous Information 1 ea NOTE XX ; Start 03/07/19 at 03:00 Glucose (Glutose) 15 gm Q15M PRN PO DECREASED GLUCOSE; Start 03/07/19 at 03:00 Glucose (Glutose) 22.5 gm Q15M PRN PO DECREASED GLUCOSE; Start 03/07/19 at 03:00 Dextrose (D50w Syringe) 25 ml Q15M PRN IV DECREASED GLUCOSE; Start 03/07/19 at 03:00 Dextrose (D50w Syringe) 50 ml Q15M PRN IV DECREASED GLUCOSE; Start 03/07/19 at 03:00 Glucagon (Glucagen) 1 mg Q15M PRN IM DECREASED GLUCOSE; Start 03/07/19 at 03:00 Glucose (Glutose) 15 gm Q15M PRN BUCCAL DECREASED GLUCOSE; Start 03/07/19 at 03:00 Heparin Sodium (Porcine) (Heparin (5000 Units/1ml)) 5,000 unit Q8 SC Last administered on 03/13/19 16:22; Admin Dose 5,000 UNIT; Start 03/07/19 at 14:00 Famotidine (Pepcid Iv) 20 mg BID IV Last administered on 03/13/19 08:25; Admin Dose 20 MG; Start 03/07/19 at 09:30 Amlodipine Besylate (Norvasc) 10 mg DAILY NGT Last administered on 03/13/19 08:26; Admin Dose 10 MG; Start 03/09/19 at 14:00 Hydralazine HCl (Apresoline) 10 mg Q4H PRN IV SBP>160 Last administered on 03/09/19 15:50; Admin Dose 10 MG; Start 03/09/19 at 14:00 Albuterol/ Ipratropium (Duoneb) 3 ml Q4HWA RESP THERAPY HHN Last administered on 03/13/19 16:58; Admin Dose 3 ML; Start 03/10/19 at 17:00 Lorazepam (Ativan) 1 mg Q8H PRN IV ANXIETY Last administered on 03/12/19 19:21; Admin Dose 1 MG; Start 03/10/19 at 19:30 Docusate Sodium (Colace Liquid Cup) 100 mg BID NGT Last administered on 08:24; Admin Dose 100 MG; Start 03/11/19 at 10:30 Magnesium Hydroxide (Milk Of Mag) 30 ml DAILY PRN PO CONSTIPATION; Start 03/11/19 at 10:30 Montelukast Sodium (Singulair) 10 mg HS PO Last administered on 03/12/19 20:17; Admin Dose 10 MG; Start 03/11/19 at 21:00 Tiotropium [place] (Spiriva) 1 inh DAILY INH Last administered on 03/12/19 08:11; Admin Dose 1 INH; Start 03/11/19 at 15:00 Ketoconazole (Nizoral Cr) 1 applic BID TOP Last administered on 03/13/19 08:29; Admin Dose 1 APPLIC; Start 03/11/19 at 21:00 Insulin Aspart (Novolog Insulin Pen) NOVOLOG *MILD* ALGORITHM WITH MEALS BEDTIME SC Last administered on 03/13/19 11:48; Admin Dose 1 UNIT; Start 03/11/19 at 21:00 Methylprednisolone Sodium Succinate (Solu-Medrol) 40 mg DAILY IV Last administered on 03/13/19at 08:24; Admin Dose 40 MG; Start 03/13/19 at 09:00 Insulin Human NPH (Humulin N) 6 unit DAILY SC Last administered on 03/13/19at 09:48; Admin Dose 6 UNIT; Start 03/13/19 at 09:00 Terbinafine HCl (Lamisil) 250 mg BID PO Last administered on 03/13/19at 08:25; Admin Dose 250 MG; Start 03/12/19 at 21:00; Stop 03/19/19 at 20:59 Furosemide (Lasix) 40 mg DAILY IV Last administered on 03/13/19at 11:39; Admin Dose 40 MG; Start 03/13/19 at 11:30 Metformin HCl (Glucophage) 850 mg BID WITH MEALS PO ; Start 03/14/19 at 07:55; Status UNV Pioglitazone HCl (Actos) 30 mg DAILY PO ; Start 03/14/19 at 09:00; Status UNV LUIS ENRIQUE ARCOS MD March 13, 2019 18:09
[2019-03-13] MEDS: LORAZEPAM 2 MG INJ IV PRN (18:48)
--- NOTE | 2019-03-13 19:19 | PN ---
Date/Time of Note Date/Time of Note DATE: 03/13/19 TIME: 19:15 Assessment/Plan VTE Prophylaxis Risk score (from Nsg)>0 risk: 6 SCD applied (from Nsg): Yes Pharmacological prophylaxis: heparin Lines/Catheters IV Catheter Type (from Nrsg): Peripheral IV Assessment/Plan Hospital Course 74 yo man with uncontrolled COPD and diabetes presents in COPD exacerbation after leaving another hospital AMA. #Acute hypoxemic and hypercapnic respiratory failure secondary to COPD exacerbation and aspiration pneumonia -Patient now extubated -Status post Zosyn - Scheduled nebulization, weaning off IV steroids . #Delirium with agitation secondary to polypharmacy and prolonged hospital stay -Continue restraints as needed -PT once mentation improved #Non-STEMI type II -Stress test once stable - Patient also was complaining of chest discomfort in the setting of acute COPD exacerbation. - Dr Wilson consultation appreciated # diabetes mellitus: -A1c of 9.8 and patient is only on metformin at home, sugars are also acutely elevated secondary to steroids -Endo managing, pt on NPH, Metformin and Actos # hypertension: Resume patient's home blood pressure medications as able # DVT GI prophylaxis: heparin, H2 daniel DC planning: PT once mentation improved Result Diagram: 03/12/19 0613 03/12/19 0613 Results 24hrs Laboratory Tests Test 03/12/19 20:31 03/13/19 08:13 03/13/19 11:22 03/13/19 17:58 Bedside Glucose 143 145 171 183 Subjective 24 Hr Interval Summary Subjective hx not possible: pt non-verbal Exam/Review of Systems Exam Vitals Vital Signs Date Temp Pulse Resp B/P (MAP) Pulse Ox O2 O2 Flow FiO2 Time Delivery Rate 03/13/19 81 17:30 03/13/19 20 93 Venti Mask 15.0 50 16:58 03/13/19 97.5 113/67 16:20 (82) Intake and Output 03/12/19 03/12/19 03/13/19 1414:59 22:59 06:59 IntakeIntake Total 540 ml OutputOutput Total 1100 ml BalanceBalance -560 ml Constitutional: non-verbal Psych: confusion Respiratory: clear to auscultation Cardiovascular: regular rate and rhythm Gastrointestinal: soft; No distended Musculoskeletal: nl extremities to inspection Results Results 24hrs Laboratory Tests Test 03/12/19 20:31 03/13/19 08:13 03/13/19 11:22 03/13/19 17:58 Bedside Glucose 143 145 171 183 Medications Medication Current Medications IV Flush (NS 3 ml) 3 ml PER PROTOCOL IV ; Start 03/06/19 at 23:30 Aspirin (Halfprin) 81 mg DAILY PO Last administered on 03/13/19 08:25; Admin Dose 81 MG; Start 03/07/19 at 09:00 Levothyroxine Sodium (Synthroid) 200 mcg DAILY@0600 PO Last administered on 03/13/19at 05:44; Admin Dose 200 MCG; Start 03/07/19 at 06:00 Fluticasone/ Vilanterol (Breo Ellipta 200-25 Mcg Inh) 1 inh DAILY INH Last administered on 03/12/19at 08:12; Admin Dose 1 INH; Start 03/07/19 at 09:00 Atorvastatin Calcium (Lipitor) 80 mg DAILY@21 PO Last administered on 03/12/19at 20:17; Admin Dose 80 MG; Start 03/07/19 at 21:00 Hydralazine HCl (Apresoline) 10 mg Q4H PRN IV ELEVATED SYSTOLIC BP Last admi nistered on 03/12/19at 20:19; Admin Dose 10 MG; Start 03/07/19 at 03:00 Nicotine (Nicoderm 21 Mg/ 24hr) 1 patch DAILY TRANSDERM Last administered on 03/13/19at 08:28; Admin Dose 1 PATCH; Start 03/07/19 at 03:00 Eye Lubricant (Artificial Tears Oph) 2 drop Q6H PRN BOTH EYES DRY EYES Last administered on 03/13/19at 11:40; Admin Dose 2 DROP; Start 03/07/19 at 03:00 Miscellaneous Information 1 ea NOTE XX ; Start 03/07/19 at 03:00 Glucose (Glutose) 15 gm Q15M PRN PO DECREASED GLUCOSE; Start 03/07/19 at 03:00 Glucose (Glutose) 22.5 gm Q15M PRN PO DECREASED GLUCOSE; Start 03/07/19 at 03:00 Dextrose (D50w Syringe) 25 ml Q15M PRN IV DECREASED GLUCOSE; Start 03/07/19 at 03:00 Dextrose (D50w Syringe) 50 ml Q15M PRN IV DECREASED GLUCOSE; Start 03/07/19 at 03:00 Glucagon (Glucagen) 1 mg Q15M PRN IM DECREASED GLUCOSE; Start 03/07/19 at 03:00 Glucose (Glutose) 15 gm Q15M PRN BUCCAL DECREASED GLUCOSE; Start 03/07/19 at 03:00 Heparin Sodium (Porcine) (Heparin (5000 Units/1ml)) 5,000 unit Q8 SC Last administered on 03/13/19 16:22; Admin Dose 5,000 UNIT; Start 03/07/19 at 14:00 Famotidine (Pepcid Iv) 20 mg BID IV Last administered on 03/13/19 08:25; Admin Dose 20 MG; Start 03/07/19 at 09:30 Amlodipine Besylate (Norvasc) 10 mg DAILY NGT Last administered on 03/13/19 08:26; Admin Dose 10 MG; Start 03/09/19 at 14:00 Hydralazine HCl (Apresoline) 10 mg Q4H PRN IV SBP>160 Last administered on 03/09/19 15:50; Admin Dose 10 MG; Start 03/09/19 at 14:00 Albuterol/ Ipratropium (Duoneb) 3 ml Q4HWA RESP THERAPY HHN Last administered on 03/13/19 16:58; Admin Dose 3 ML; Start 03/10/19 at 17:00 Lorazepam (Ativan) 1 mg Q8H PRN IV ANXIETY Last administered on 03/13/19 18:48; Admin Dose 1 MG; Start 03/10/19 at 19:30 Docusate Sodium (Colace Liquid Cup) 100 mg BID NGT Last administered on 08:24; Admin Dose 100 MG; Start 03/11/19 at 10:30 Magnesium Hydroxide (Milk Of Mag) 30 ml DAILY PRN PO CONSTIPATION; Start 03/11/19 at 10:30 Montelukast Sodium (Singulair) 10 mg HS PO Last administered on 03/12/19 20:17; Admin Dose 10 MG; Start 03/11/19 at 21:00 Tiotropium [place] (Spiriva) 1 inh DAILY INH Last administered on 03/12/19 08:11; Admin Dose 1 INH; Start 03/11/19 at 15:00 Ketoconazole (Nizoral Cr) 1 applic BID TOP Last administered on 03/13/19 08:29; Admin Dose 1 APPLIC; Start 03/11/19 at 21:00 Insulin Aspart (Novolog Insulin Pen) NOVOLOG *MILD* ALGORITHM WITH MEALS BEDTIME SC Last administered on 03/13/19 18:20; Admin Dose 2 UNIT; Start 03/11/19 at 21:00 Methylprednisolone Sodium Succinate (Solu-Medrol) 40 mg DAILY IV Last administered on 03/13/19 08:24; Admin Dose 40 MG; Start 03/13/19 at 09:00 Insulin Human NPH (Humulin N) 6 unit DAILY SC Last administered on 03/13/19 09:48; Admin Dose 6 UNIT; Start 03/13/19 at 09:00 Terbinafine HCl (Lamisil) 250 mg BID PO Last administered on 03/13/19 08:25; Admin Dose 250 MG; Start 03/12/19 at 21:00; Stop 03/19/19 at 20:59 Furosemide (Lasix) 40 mg DAILY IV Last administered on 03/13/19 11:39; Admin Dose 40 MG; Start 03/13/19 at 11:30 Metformin HCl (Glucophage) 850 mg BID WITH MEALS PO ; Start 03/14/19 at 07:55 Pioglitazone HCl (Actos) 30 mg DAILY PO ; Start 03/14/19 at 09:00 WALLACE COBB March 13, 2019 19:19
[2019-03-13] MEDS: MONTELUKAST 10 MG TAB PO SCH (20:15)
[2019-03-13] MEDS: ATORVASTATIN 80 MG TAB PO SCH (20:16)
[2019-03-14] VITALS (10 sets, daily range): BP systolic 108–147; BP diastolic 62–78; PULSE 65–94; RESP 18–20
[2019-03-14] MEDS ORDERED: DIPHENHYDRAMINE 50 MG INJ IV ONE (04:30)
--- NOTE | 2019-03-14 05:53 | CONS ---
Assessment/Plan Assessment/Plan Hospital Course (Demo Recall) Acute respiratory failure with hypoxia/hypercapnia: Initially due to severe COPD exacerbation with PCO2 160 requiring intubation but CXR post intubation shows a large infiltrate which is likely due to aspiration. Also with CHF from IVF. Now extubated 03/10. Still on high oxygen requirements Acute diastolic CHF: due to IVF. Diuresing well with lasix NSTEMI: mild trops 0.2 x 3. Trend does not suggest ACS but rather type II in setting of above. Echo with preserved EF. Plan for stress testing outpt depending on clinical progress and pt willingness to be compliant PNA: likely aspiration as not present on initial CXR. Either happened when he was altered from the hypercapnia or during intubation COPD with severe exacerbation: still wheezing on exam Active tobacco abuse DM HTN -continue ASA, lipitor -amlodipine 10mg -lasix 40mg IV daily, assess daily -steroids per pulm/primary teams Consultation Date/Type/Reason Admit Date/Time March 06, 2019 at 23:13 Initial Consult Date 03/07/19 Type of Consult Cardiology Requesting Provider: SANDIE LUGO Date/Time of Note DATE: 03/14/19 TIME: 05:52 24 HR Interval Summary Free Text/Dictation Son notes he had a better night but still agitated at times. Started on lasix for pulm edema on CXR Exam/Review of Systems Vital Signs Vitals Vital Signs Date Temp Pulse Resp B/P (MAP) Pulse Ox O2 O2 Flow FiO2 Time Delivery Rate 03/14/19 97.7 82 20 147/77 97 04:00 (100) 03/14/19 15.0 50 02:03 03/13/19 Venti Mask 20:41 Intake and Output 03/13/19 03/13/19 03/14/19 1515:00 23:00 07:00 IntakeIntake Total 600 ml 600 ml OutputOutput Total 2100 ml 1300 ml BalanceBalance -1500 ml -700 ml Exam Constitutional: No alert Neck: supple; No jvd Respiratory: wheezing; No clear to auscultation Cardiovascular: regular rate and rhythm; No edema, No systolic murmur Gastrointestinal: soft, non-tender; No distended Neurological: No nl mental status, No nl speech Labs Result Diagram: 03/12/1913 03/12/19612 Results 24hrs Laboratory Tests Test 03/13/19 08:13 03/13/19 11:22 03/13/19 17:58 03/13/19 20:19 Bedside Glucose 145 171 183 135 Medications Medications Current Medications IV Flush (NS 3 ml) 3 ml PER PROTOCOL IV ; Start 03/06/19 at 23:30 Aspirin (Halfprin) 81 mg DAILY PO Last administered on 03/13/19at 08:25; Admin Dose 81 MG; Start 03/07/19 at 09:00 Levothyroxine Sodium (Synthroid) 200 mcg DAILY@0600 PO Last administered on 03/13/19at 05:44; Admin Dose 200 MCG; Start 03/07/19 at 06:00 Fluticasone/ Vilanterol (Breo Ellipta 200-25 Mcg Inh) 1 inh DAILY INH Last administered on 03/12/19at 08:12; Admin Dose 1 INH; Start 03/07/19 at 09:00 Atorvastatin Calcium (Lipitor) 80 mg DAILY@21 PO Last administered on 03/13/19at 20:16; Admin Dose 80 MG; Start 03/07/19 at 21:00 Hydralazine HCl (Apresoline) 10 mg Q4H PRN IV ELEVATED SYSTOLIC BP Last administered on 03/12/19at 20:19; Admin Dose 10 MG; Start 03/07/19 at 03:00 Nicotine (Nicoderm 21 Mg/ 24hr) 1 patch DAILY TRANSDERM Last administered on at 08:28; Admin Dose 1 PATCH; Start 03/07/19 at 03:00 Eye Lubricant (Artificial Tears Oph) 2 drop Q6H PRN BOTH EYES DRY EYES Last administered on 03/13/19at 11:40; Admin Dose 2 DROP; Start 03/07/19 at 03:00 Miscellaneous Information 1 ea NOTE XX ; Start 03/07/19 at 03:00 Glucose (Glutose) 15 gm Q15M PRN PO DECREASED GLUCOSE; Start 03/07/19 at 03:00 Glucose (Glutose) 22.5 gm Q15M PRN PO DECREASED GLUCOSE; Start 03/07/19 at 03:00 Dextrose (D50w Syringe) 25 ml Q15M PRN IV DECREASED GLUCOSE; Start 03/07/19 at 03:00 Dextrose (D50w Syringe) 50 ml Q15M PRN IV DECREASED GLUCOSE; Start 03/07/19 at 03:00 Glucagon (Glucagen) 1 mg Q15M PRN IM DECREASED GLUCOSE; Start 03/07/19 at 03:00 Glucose (Glutose) 15 gm Q15M PRN BUCCAL DECREASED GLUCOSE; Start 03/07/19 at 03:00 Heparin Sodium (Porcine) (Heparin (5000 Units/1ml)) 5,000 unit Q8 SC Last administered on 03/13/19 23:35; Admin Dose 5,000 UNIT; Start 03/07/19 at 14:00 Famotidine (Pepcid Iv) 20 mg BID IV Last administered on 03/13/19 20:16; Admin Dose 20 MG; Start 03/07/19 at 09:30 Amlodipine Besylate (Norvasc) 10 mg DAILY NGT Last administered on 03/13/19 08:26; Admin Dose 10 MG; Start 03/09/19 at 14:00 Hydralazine HCl (Apresoline) 10 mg Q4H PRN IV SBP>160 Last administered on 03/09/19at 15:50; Admin Dose 10 MG; Start 03/09/19 at 14:00 Albuterol/ Ipratropium (Duoneb) 3 ml Q4HWA RESP THERAPY HHN Last administered on 03/13/19 20:41; Admin Dose 3 ML; Start 03/10/19 at 17:00 Lorazepam (Ativan) 1 mg Q8H PRN IV ANXIETY Last administered on 03/13/19at 18:48; Admin Dose 1 MG; Start 03/10/19 at 19:30 Docusate Sodium (Colace Liquid Cup) 100 mg BID NGT Last administered on 03/13/19at 20:15; Admin Dose 100 MG; Start 03/11/19 at 10:30 Magnesium Hydroxide (Milk Of Mag) 30 ml DAILY PRN PO CONSTIPATION; Start 03/11/19 at 10:30 Montelukast Sodium (Singulair) 10 mg HS PO Last administered on 03/13/19at 20:15; Admin Dose 10 MG; Start 03/11/19 at 21:00 Tiotropium [place] (Spiriva) 1 inh DAILY INH Last administered on 03/12/19 08:11; Admin Dose 1 INH; Start 03/11/19 at 15:00 Ketoconazole (Nizoral Cr) 1 applic BID TOP Last administered on 03/13/19 20:17; Admin Dose 1 APPLIC; Start 03/11/19 at 21:00 Insulin Aspart (Novolog Insulin Pen) NOVOLOG *MILD* ALGORITHM WITH MEALS BEDTIME SC Last administered on 03/13/19 18:20; Admin Dose 2 UNIT; Start 03/11/19 at 21:00 Methylprednisolone Sodium Succinate (Solu-Medrol) 40 mg DAILY IV Last administered on 03/13/19 08:24; Admin Dose 40 MG; Start 03/13/19 at 09:00 Insulin Human NPH (Humulin N) 6 unit DAILY SC Last administered on 03/13/19 09:48; Admin Dose 6 UNIT; Start 03/13/19 at 09:00 Terbinafine HCl (Lamisil) 250 mg BID PO Last administered on 03/13/19 20:15; Admin Dose 250 MG; Start 03/12/19 at 21:00; Stop 03/19/19 at 20:59 Furosemide (Lasix) 40 mg DAILY IV Last administered on 03/13/19at 11:39; Admin Dose 40 MG; Start 03/13/19 at 11:30 Metformin HCl (Glucophage) 850 mg BID WITH MEALS PO ; Start 03/14/19 at 07:55 Pioglitazone HCl (Actos) 30 mg DAILY PO ; Start 03/14/19 at 09:00 RADU VIVAS March 14, 2019 05:53
[2019-03-14] MEDS: LEVOTHYROXINE 100 MCG TAB PO SCH (07:01)
[2019-03-14] MEDS: HEPARIN 5,000 UNIT/1 ML VIAL SC SCH ×2 (07:09→13:43)
[2019-03-14] MEDS: INSULIN ASPART [NOVOLOG] 3 ML PEN SC SCH ×4 (07:55→20:05)
[2019-03-14] MEDS: NICOTINE (21 MG/24 HR) PATCH TRANSDERM SCH (08:20)
[2019-03-14] MEDS: TERBINAFINE 250 MG TAB PO SCH ×2 (08:22→20:08)
[2019-03-14] MEDS: AMLODIPINE 10 MG TAB NGT SCH (08:22)
[2019-03-14] MEDS: metFORMIN 500 MG TAB PO SCH ×2 (08:22→18:49)
[2019-03-14] MEDS: DOCUSATE SODIUM 10 MG/ML (10ML CUP) NGT SCH ×2 (08:23→20:08)
[2019-03-14] MEDS: METHYLPREDNISOLONE 40 MG INJ IV SCH (08:23)
[2019-03-14] MEDS: FAMOTIDINE 20 MG INJ IV SCH ×2 (08:23→20:07)
[2019-03-14] MEDS: FUROSEMIDE 40 MG INJ IV SCH (08:24)
[2019-03-14] MEDS: NPH, HUMAN INSULIN ISOPHANE 3ML VIAL SC SCH (08:51)
[2019-03-14] MEDS ORDERED: PIOGLITAZONE 15 MG TAB PO SCH (09:00)
[2019-03-14] MEDS: TIOTROPIUM 18 MCG CAPSULE INHA DEV INH SCH (09:00)
[2019-03-14] MEDS: FLUTICASONE/VILANTEROL 200-25 INH DEVICE INH SCH (09:00)
[2019-03-14] MEDS: ALBUTEROL/IPRATROPIUM (NEB) 3 ML AMP HHN SCH ×4 (09:05→21:00)
[2019-03-14] MEDS: KETOCONAZOLE 2% 15 GM CR TOP SCH ×2 (09:19→20:09)
[2019-03-14] MEDS: ASPIRIN (EC) 81 MG TAB PO SCH (09:19)
[2019-03-14] MEDS ORDERED: MONT10TA24 PO (11:03)
[2019-03-14] MEDS ORDERED: Furosemide IV (11:03)
[2019-03-14] MEDS ORDERED: FLUT1BLS INH (11:03)
[2019-03-14] MEDS ORDERED: TIOT18CA INH (11:03)
[2019-03-14] MEDS ORDERED: PIOG15TA12 PO (11:03)
[2019-03-14] MEDS ORDERED: ATOR-2 PO (11:03)
[2019-03-14] MEDS ORDERED: KETOCONAZOLE 2% TOP (11:03)
[2019-03-14] MEDS ORDERED: NICO-546 TRANSDERM (11:03)
[2019-03-14] MEDS ORDERED: NPH,100V SC (11:03)
[2019-03-14] MEDS ORDERED: TERB250T13 PO (11:03)
--- NOTE | 2019-03-14 13:25 | CONS ---
Assessment/Plan Assessment/Plan Problems: (1) Acute hypercapnic respiratory failure Onset Date: ~ 03/06/2019 Status: Acute Comment: As per pulmonary and primary team. (2) Diabetes mellitus type 2 in nonobese Status: Chronic Comment: Doing well with control continues to do well. Please note he is on tube feedings and not yet orally feeding (3) COPD with acute exacerbation Status: Chronic Comment: Full dose therapy. Please see the next problem (4) Secondary polycythemia Status: Chronic Comment: Blood counts are rising which is can actually be a little bit of a complication for serum viscosity. Please evaluate for the possibility of therapeutic phlebotomy of 1 unit of blood (5) Essential hypertension Status: Chronic Comment: Adequate control (6) Grade I diastolic dysfunction Status: Chronic Comment: Adequate control (7) Tobacco abuse Status: Chronic Comment: On nicotine patch (8) Testicular hypofunction Status: Chronic Comment: His numbers are at a level that would be seen in some ways either had castration or Lupron. The family and indicates that he has not been treated for prostatic issues. While attempting to give him a dose of this it will raise his blood counts which is already an issue and as such this is noted but should not be treated at this time Consultation Date/Type/Reason Admit Date/Time March 06, 2019 at 23:13 Initial Consult Date 03/07/19 Type of Consult Endocrinology Reason for Consultation Diabetes mellitus type 2 with poor control; steroid treatment for COPD; end- stage COPD; tobacco abuse; essential hypertension; polycythemia; testicular hypofunction Requesting Provider: SANDIE LUGO Date/Time of Note DATE: 03/14/19 TIME: 13:21 24 HR Interval Summary Free Text/Dictation Vision is roughly the same as yesterday although he reports he is feeling better. Constitutional: no complaints (Denies fevers chills or sweats) Detailed Summary Respiratory: shortness of breath Cardiovascular: no complaints Gastrointestinal: no complaints Genitourinary: no complaints Neurologic: no complaints Endocrine: no complaints Exam/Review of Systems Exam Vitals Vital Signs Date Temp Pulse Resp B/P (MAP) Pulse Ox O2 O2 Flow FiO2 Time Delivery Rate 03/14/19 78 18 89 Venti Mask 15.0 50 12:41 03/14/19 98.0 111/62 11:38 (78) Intake and Output 03/13/19 03/13/19 03/14/19 1515:00 23:00 07:00 IntakeIntake Total 600 ml 600 ml 0 ml OutputOutput Total 2100 ml 1300 ml 1100 ml BalanceBalance -1500 ml -700 ml -1100 ml Constitutional: alert Respiratory: diminished breath sounds (Increased anterior to posterior ratio; decreased inspiratory to expiratory ratio) Cardiovascular: nl pulses, other (PMI is distally and centrally displaced) Gastrointestinal: soft, nl liver, spleen, non-tender Extremities: normal pulses Results Result Diagram: 03/14/19 0644 03/14/19 0644 Results 24hrs Laboratory Tests Test 03/13/19 17:58 03/13/19 20:19 03/14/19 06:44 03/14/19 07:00 Bedside Glucose 183 135 White Blood Count 9.9 # Red Blood Count 6.43 H Hemoglobin 18.6 H Hematocrit 58.9 H Mean Corpuscular 91.6 Volume Mean Corpuscular 28.9 L Hemoglobin Mean Corpuscular 31.6 L Hemoglobin Concen t Red Cell 17.2 H Distribution Width Platelet Count 244 Mean Platelet 11.2 H Volume Immature 0.500 H Granulocytes % Neutrophils % 72.0 Lymphocytes % 16.1 Monocytes % 9.6 Eosinophils % 1.6 Basophils % 0.2 Nucleated Red 0.0 Blood Cells % Immature 0.050 H Granulocytes # Neutrophils # 7.2 Lymphocytes # 1.6 Monocytes # 1.0 H Eosinophils # 0.2 Basophils # 0.0 Nucleated Red 0.0 Blood Cells # Sodium Level 140 Potassium Level 3.4 L Chloride Level 100 Carbon Dioxide 35 H Level Anion Gap 5 Blood Urea 29 H Nitrogen Creatinine 0.63 Est Glomerular Filtrat Rate mL/min Glucose Level 144 Calcium Level 9.0 Phosphorus Level 4.4 Magnesium Level 2.0 Ammonia 20 Blood Gas Blood arterial Specimen Source Arterial Blood 03/14/2019 7:50:3 Date Drawn 9 AM Arterial Blood pH 7.401 (Temp corrected) Arterial Blood 55.3 H pCO2 (Temp correct) Arterial Blood 59.8 L pO2 (Temp corrected) Arterial Blood 33.6 H HCO3 Arterial Blood 6.3 H Base Excess Arterial Blood 89.9 L Oxygen Saturation Ivan Test ACCEPTAB Arterial Blood Right Radial Gas Puncture Site Arterial 0.1 Blood Carboxyhemo globin Arterial Blood 0.4 Methemoglobin Blood Gas A-a O2 234.5 H Differential Oxyhemoglobin 89.5 L Percent Blood Gas 37.0 Temperature Blood Gas MASK - VENTI Modality FiO2 50.0 Blood Gas TM Notified Whom Blood Gas 03/14/2019 7:58:1 Notified Time 1 AM Test 03/14/19 08:18 Bedside Glucose 122 Medications Medication Current Medications IV Flush (NS 3 ml) 3 ml PER PROTOCOL IV ; Start 03/06/19 at 23:30 Aspirin (Halfprin) 81 mg DAILY PO Last administered on 03/14/19 09:19; Admin Dose 81 MG; Start 03/07/19 at 09:00 Levothyroxine Sodium (Synthroid) 200 mcg DAILY@0600 PO Last administered on 03/14/19 07:01; Admin Dose 200 MCG; Start 03/07/19 at 06:00 Fluticasone/ Vilanterol (Breo Ellipta 200-25 Mcg Inh) 1 inh DAILY INH Last administered on 03/12/19at 08:12; Admin Dose 1 INH; Start 03/07/19 at 09:00 Atorvastatin Calcium (Lipitor) 80 mg DAILY@21 PO Last administered on 03/13/19at 20:16; Admin Dose 80 MG; Start 03/07/19 at 21:00 Hydralazine HCl (Apresoline) 10 mg Q4H PRN IV ELEVATED SYSTOLIC BP Last administered on 03/12/19at 20:19; Admin Dose 10 MG; Start 03/07/19 at 03:00 Nicotine (Nicoderm 21 Mg/ 24hr) 1 patch DAILY TRANSDERM Last administered on 03/14/19at 08:20; Admin Dose 1 PATCH; Start 03/07/19 at 03:00 Eye Lubricant (Artificial Tears Oph) 2 drop Q6H PRN BOTH EYES DRY EYES Last administered on 03/13/19at 11:40; Admin Dose 2 DROP; Start 03/07/19 at 03:00 Miscellaneous Information 1 ea NOTE XX ; Start 03/07/19 at 03:00 Glucose (Glutose) 15 gm Q15M PRN PO DECREASED GLUCOSE; Start 03/07/19 at 03:00 Glucose (Glutose) 22.5 gm Q15M PRN PO DECREASED GLUCOSE; Start 03/07/19 at 03:00 Dextrose (D50w Syringe) 25 ml Q15M PRN IV DECREASED GLUCOSE; Start 03/07/19 at 03:00 Dextrose (D50w Syringe) 50 ml Q15M PRN IV DECREASED GLUCOSE; Start 03/07/19 at 03:00 Glucagon (Glucagen) 1 mg Q15M PRN IM DECREASED GLUCOSE; Start 03/07/19 at 03:00 Glucose (Glutose) 15 gm Q15M PRN BUCCAL DECREASED GLUCOSE; Start 03/07/19 at 03:00 Heparin Sodium (Porcine) (Heparin (5000 Units/1ml)) 5,000 unit Q8 SC Last administered on 03/14/19 07:09; Admin Dose 5,000 UNIT; Start 03/07/19 at 14:00 Famotidine (Pepcid Iv) 20 mg BID IV Last administered on 03/14/19 08:23; Admin Dose 20 MG; Start 03/07/19 at 09:30 Amlodipine Besylate (Norvasc) 10 mg DAILY NGT Last administered on 03/14/19 08:22; Admin Dose 10 MG; Start 03/09/19 at 14:00 Hydralazine HCl (Apresoline) 10 mg Q4H PRN IV SBP>160 Last administered on 03/09/19at 15:50; Admin Dose 10 MG; Start 03/09/19 at 14:00 Albuterol/ Ipratropium (Duoneb) 3 ml Q4HWA RESP THERAPY HHN Last administered on 03/14/19 12:40; Admin Dose 3 ML; Start 03/10/19 at 17:00 Lorazepam (Ativan) 1 mg Q8H PRN IV ANXIETY Last administered on 03/13/19 18:48; Admin Dose 1 MG; Start 03/10/19 at 19:30 Docusate Sodium (Colace Liquid Cup) 100 mg BID NGT Last administered on 03/14/19 08:23; Admin Dose 100 MG; Start 03/11/19 at 10:30 Magnesium Hydroxide (Milk Of Mag) 30 ml DAILY PRN PO CONSTIPATION; Start 03/11/19 at 10:30 Montelukast Sodium (Singulair) 10 mg HS PO Last administered on 03/13/19 20:15; Admin Dose 10 MG; Start 03/11/19 at 21:00 Tiotropium [place] (Spiriva) 1 inh DAILY INH Last administered on 03/12/19 08:11; Admin Dose 1 INH; Start 03/11/19 at 15:00 Ketoconazole (Nizoral Cr) 1 applic BID TOP Last administered on 03/14/19 09:19; Admin Dose 1 APPLIC; Start 03/11/19 at 21:00 Insulin Aspart (Novolog Insulin Pen) NOVOLOG *MILD* ALGORITHM WITH MEALS BEDTIME SC Last administered on 03/13/19 18:20; Admin Dose 2 UNIT; Start 03/11/19 at 21:00 Methylprednisolone Sodium Succinate (Solu-Medrol) 40 mg DAILY IV Last administered on 03/14/19 08:23; Admin Dose 40 MG; Start 03/13/19 at 09:00 Insulin Human NPH (Humulin N) 6 unit DAILY SC Last administered on 03/14/19 08:51; Admin Dose 6 UNIT; Start 03/13/19 at 09:00 Terbinafine HCl (Lamisil) 250 mg BID PO Last administered on 03/14/19 08:22; Admin Dose 250 MG; Start 03/12/19 at 21:00; Stop 03/19/19 at 20:59 Furosemide (Lasix) 40 mg DAILY IV Last administered on 03/14/19 08:24; Admin Dose 40 MG; Start 03/13/19 at 11:30 Metformin HCl (Glucophage) 850 mg BID WITH MEALS PO Last administered on 03/14/19 08:22; Admin Dose 850 MG; Start 03/14/19 at 07:55 Pioglitazone HCl (Actos) 30 mg DAILY PO Last administered on 03/14/19 08:23; Admin Dose 30 MG; Start 03/14/19 at 09:00 LUIS ENRIQUE ARCOS MD March 14, 2019 13:25
--- NOTE | 2019-03-14 14:29 | CONS ---
Consult Date/Type/Reason Admit Date/Time March 06, 2019 at 23:13 Initial Consult Date 03/07/19 Type of Consult Pulmonary Requesting Provider: SANDIE LUGO Date/Time of Note DATE: 03/14/19 TIME: 14:29 Subjective Patient remained stable this morning. No new events breathing slowly improving. Still requiring Ventimask oxygen. Objective Vital Signs Date Temp Pulse Resp B/P (MAP) Pulse Ox O2 O2 Flow FiO2 Time Delivery Rate 03/14/19 78 18 89 Venti Mask 15.0 50 12:41 03/14/19 98.0 111/62 11:38 (78) Intake and Output 03/13/19 03/13/19 03/14/19 1515:00 23:00 07:00 IntakeIntake Total 600 ml 600 ml 0 ml OutputOutput Total 2100 ml 1300 ml 1100 ml BalanceBalance -1500 ml -700 ml -1100 ml Exam GENERAL: Elderly Telugu gentleman comfortable at rest VITAL SIGNS: per chart NECK: Supple. No JVD or lymphadenopathy. CARDIAC EXAM: S1, S2. No added sounds or murmurs. CHEST: Diminished air entry bilaterally with few rales ABDOMEN: Soft, nontender. No guarding or rebound. EXTREMITIES: No cyanosis, clubbing or edema. NEUROLOGIC: Generalized weakness. Intermittent agitation Vent Setting Ventilator Support Mode: CPAP Fraction of Inspired Oxygen pe: 50 Positive End Expiratory Pressu: 5.0 Results/Medications Result Diagram: 03/14/19 0644 03/14/19 0644 Results 24 hrs Laboratory Tests Test 03/13/19 17:58 03/13/19 20:19 03/14/19 06:44 03/14/19 07:00 Bedside Glucose 183 135 White Blood Count 9.9 # Red Blood Count 6.43 H Hemoglobin 18.6 H Hematocrit 58.9 H Mean Corpuscular 91.6 Volume Mean Corpuscular 28.9 L Hemoglobin Mean Corpuscular 31.6 L Hemoglobin Concen t Red Cell 17.2 H Distribution Width Platelet Count 244 Mean Platelet 11.2 H Volume Immature 0.500 H Granulocytes % Neutrophils % 72.0 Lymphocytes % 16.1 Monocytes % 9.6 Eosinophils % 1.6 Basophils % 0.2 Nucleated Red 0.0 Blood Cells % Immature 0.050 H Granulocytes # Neutrophils # 7.2 Lymphocytes # 1.6 Monocytes # 1.0 H Eosinophils # 0.2 Basophils # 0.0 Nucleated Red 0.0 Blood Cells # Sodium Level 140 Potassium Level 3.4 L Chloride Level 100 Carbon Dioxide 35 H Level Anion Gap 5 Blood Urea 29 H Nitrogen Creatinine 0.63 Est Glomerular Filtrat Rate mL/min Glucose Level 144 Calcium Level 9.0 Phosphorus Level 4.4 Magnesium Level 2.0 Ammonia 20 Blood Gas Blood arterial Specimen Source Arterial Blood 03/14/2019 7:50:3 Date Drawn 9 AM Arterial Blood pH 7.401 (Temp corrected) Arterial Blood 55.3 H pCO2 (Temp correct) Arterial Blood 59.8 L pO2 (Temp corrected) Arterial Blood 33.6 H HCO3 Arterial Blood 6.3 H Base Excess Arterial Blood 89.9 L Oxygen Saturation Ivan Test ACCEPTAB Arterial Blood Right Radial Gas Puncture Site Arterial 0.1 Blood Carboxyhemo globin Arterial Blood 0.4 Methemoglobin Blood Gas A-a O2 234.5 H Differential Oxyhemoglobin 89.5 L Percent Blood Gas 37.0 Temperature Blood Gas MASK - VENTI Modality FiO2 50.0 Blood Gas TM Notified Whom Blood Gas 03/14/2019 7:58:1 Notified Time 1 AM Test 03/14/19 08:18 03/14/19 13:26 Bedside Glucose 122 166 Medications Current Medications IV Flush (NS 3 ml) 3 ml PER PROTOCOL IV ; Start 03/06/19 at 23:30 Aspirin (Halfprin) 81 mg DAILY PO Last administered on 03/14/19at 09:19; Admin Dose 81 MG; Start 03/07/19 at 09:00 Levothyroxine Sodium (Synthroid) 200 mcg DAILY@0600 PO Last administered on 03/14/19at 07:01; Admin Dose 200 MCG; Start 03/07/19 at 06:00 Fluticasone/ Vilanterol (Breo Ellipta 200-25 Mcg Inh) 1 inh DAILY INH Last administered on 03/12/19at 08:12; Admin Dose 1 INH; Start 03/07/19 at 09:00 Atorvastatin Calcium (Lipitor) 80 mg DAILY@21 PO Last administered on 03/13/19at 20:16; Admin Dose 80 MG; Start 03/07/19 at 21:00 Hydralazine HCl (Apresoline) 10 mg Q4H PRN IV ELEVATED SYSTOLIC BP Last administered on 03/12/19at 20:19; Admin Dose 10 MG; Start 03/07/19 at 03:00 Nicotine (Nicoderm 21 Mg/ 24hr) 1 patch DAILY TRANSDERM Last administered on 03/14/19 08:20; Admin Dose 1 PATCH; Start 03/07/19 at 03:00 Eye Lubricant (Artificial Tears Oph) 2 drop Q6H PRN BOTH EYES DRY EYES Last administered on 03/13/19 11:40; Admin Dose 2 DROP; Start 03/07/19 at 03:00 Miscellaneous Information 1 ea NOTE XX ; Start 03/07/19 at 03:00 Glucose (Glutose) 15 gm Q15M PRN PO DECREASED GLUCOSE; Start 03/07/19 at 03:00 Glucose (Glutose) 22.5 gm Q15M PRN PO DECREASED GLUCOSE; Start 03/07/19 at 03:00 Dextrose (D50w Syringe) 25 ml Q15M PRN IV DECREASED GLUCOSE; Start 03/07/19 at 03:00 Dextrose (D50w Syringe) 50 ml Q15M PRN IV DECREASED GLUCOSE; Start 03/07/19 at 03:00 Glucagon (Glucagen) 1 mg Q15M PRN IM DECREASED GLUCOSE; Start 03/07/19 at 03:00 Glucose (Glutose) 15 gm Q15M PRN BUCCAL DECREASED GLUCOSE; Start 03/07/19 at 03:00 Heparin Sodium (Porcine) (Heparin (5000 Units/1ml)) 5,000 unit Q8 SC Last adm inistered on 03/14/19 13:43; Admin Dose 5,000 UNIT; Start 03/07/19 at 14:00 Famotidine (Pepcid Iv) 20 mg BID IV Last administered on 03/14/19 08:23; Admin Dose 20 MG; Start 03/07/19 at 09:30 Amlodipine Besylate (Norvasc) 10 mg DAILY NGT Last administered on 03/14/19 08:22; Admin Dose 10 MG; Start 03/09/19 at 14:00 Hydralazine HCl (Apresoline) 10 mg Q4H PRN IV SBP>160 Last administered on 02/19 15:50; Admin Dose 10 MG; Start 03/09/19 at 14:00 Albuterol/ Ipratropium (Duoneb) 3 ml Q4HWA RESP THERAPY HHN Last administered on 03/14/19 12:40; Admin Dose 3 ML; Start 03/10/19 at 17:00 Lorazepam (Ativan) 1 mg Q8H PRN IV ANXIETY Last administered on 03/13/19 18:48; Admin Dose 1 MG; Start 03/10/19 at 19:30 Docusate Sodium (Colace Liquid Cup) 100 mg BID NGT Last administered on 03/14/19 at 08:23; Admin Dose 100 MG; Start 03/11/19 at 10:30 Magnesium Hydroxide (Milk Of Mag) 30 ml DAILY PRN PO CONSTIPATION; Start 03/11/19 at 10:30 Montelukast Sodium (Singulair) 10 mg HS PO Last administered on 03/13/19 20:15; Admin Dose 10 MG; Start 03/11/19 at 21:00 Tiotropium [place] (Spiriva) 1 inh DAILY INH Last administered on 03/12/19 08:11; Admin Dose 1 INH; Start 03/11/19 at 15:00 Ketoconazole (Nizoral Cr) 1 applic BID TOP Last administered on 03/14/19 09:19; Admin Dose 1 APPLIC; Start 03/11/19 at 21:00 Insulin Aspart (Novolog Insulin Pen) NOVOLOG *MILD* ALGORITHM WITH MEALS BEDT RADHA SC Last administered on 03/14/19 13:43; Admin Dose 1 UNIT; Start 03/11/19 at 21:00 Methylprednisolone Sodium Succinate (Solu-Medrol) 40 mg DAILY IV Last administered on 03/14/19 08:23; Admin Dose 40 MG; Start 03/13/19 at 09:00 Insulin Human NPH (Humulin N) 6 unit DAILY SC Last administered on 03/14/19 08:51; Admin Dose 6 UNIT; Start 03/13/19 at 09:00 Terbinafine HCl (Lamisil) 250 mg BID PO Last administered on 03/14/19 08:22; Admin Dose 250 MG; Start 03/12/19 at 21:00; Stop 03/19/19 at 20:59 Furosemide (Lasix) 40 mg DAILY IV Last administered on 03/14/19 08:24; Admin Dose 40 MG; Start 03/13/19 at 11:30 Metformin HCl (Glucophage) 850 mg BID WITH MEALS PO Last administered on 08:22; Admin Dose 850 MG; Start 03/14/19 at 07:55 Pioglitazone HCl (Actos) 30 mg DAILY PO Last administered on 03/14/19at 08:23; Admin Dose 30 MG; Start 03/14/19 at 09:00 Assessment/Plan Hospital Course (Demo Recall) IMPRESSION: 1. Acute hypoxemic and hypercapnic respiratory failure, probable aspiration pneumonia during intubation for COPD exacerbation. 2. Non-ST elevation myocardial infarction, possibly type 2. 3. Underlying history of hypertension. 4. Extensive ongoing tobacco history with chronic obstructive pulmonary disease. Chronic hypercapnic respiratory failure 5. Encephalopathy likely toxic metabolic. PLAN: 1. Supplemental O2 on bilevel ventilation as needed 2. Sputum studies. 3. Steroid taper. 4. Bronchodilators. 5. Cardiology recommendations. 6. DVT and GI prophylaxis. Vinson evaluation Long discussion with family at bedside. JOSÉ ANTONIO LOJA MD, [facility] March 14, 2019 14:29
[2019-03-14] MEDS: ATORVASTATIN 80 MG TAB PO SCH (20:06)
[2019-03-14] MEDS: MONTELUKAST 10 MG TAB PO SCH (20:08)
--- NOTE | 2019-03-15 12:53 | DS ---
Date/Time of Note Date/Time of Note DATE: 03/15/19 TIME: 12:50 Discharge Summary Admission/Discharge Info Admit Date/Time March 06, 2019 at 23:13 Discharge Date/Time March 14, 2019 at 21:40 Discharge Diagnosis #Acute hypoxemic and hypercapnic respiratory failure secondary to COPD exacerbation and aspiration pneumonia -Patient now extubated -Status post Zosyn - Scheduled nebulization, weaning off IV steroids -DC to [facility] . #Delirium with agitation secondary to polypharmacy and prolonged hospital stay -Continue restraints as needed -PT once mentation improved #Non-STEMI type II -Stress test once stable - Patient also was complaining of chest discomfort in the setting of acute COPD exacerbation. - Dr Wilson consultation appreciated # diabetes mellitus: -A1c of 9.8 and patient is only on metformin at home, sugars are also acutely elevated secondary to steroids -Endo managing, pt on NPH, Metformin and Actos # hypertension: Resume patient's home blood pressure medications as able Patient Condition: Good Hospital Course Patient is a 74 yo man with uncontrolled COPD secondary to tobacco abuse and diabetes presents in COPD exacerbation after leaving another hospital AMA. Patient required intubation due to hypoxemic and hypercapnic respiratory failure and possible aspiration pneumonia. Patient did require vent support as well as IV antibiotics and was eventually extubated. Respiratory status did improve but patient was delirious and required restraints. Patient did require supplemental oxygen and was appropriate for [facility]. Of note patient did have elevation of his heart enzymes likely secondary to stress the patient was to have a further work-up when stable. Patient was seen by endocrinology who managed his diabetes. Patient stable for DC to [facility], on the day of discharge patient vitals, labs of exam are stable. Home Meds Active Scripts [Ketoconazole 2% Cr] 1 APPLIC CR No Conflict Check, 1 APPLIC TOP BID, #1 TUB Prov:WALLACE COBB 03/14/19 Pioglitazone Hcl* (Actos*) 15 Mg Tablet, 30 MG PO DAILY, #30 TAB Prov:WLALACE COBB 03/14/19 Insulin NPH Human Isophane (Humulin N) 100 Unit/1 Ml Vial, 6 UNIT SC DAILY, #30 VIAL Prov:WALLACE COBB 03/14/19 Montelukast Sodium* (Montelukast Sodium*) 10 Mg Tablet, 10 MG PO HS, #60 TAB Prov:WALLACE COBB 03/14/19 Fluticasone/Vilanterol (Breo Ellipta 200-25 Mcg INH) 1 Each Blst.w.dev, 1 INH INH DAILY, #1 INHALER Prov:WALLACE COBB 03/14/19 [Furosemide] 10 MG/ML SOLN No Conflict Check, 40 MG IV DAILY, #60 Prov:WALLACE COBB 03/14/19 Atorvastatin* (Atorvastatin*) 80 Mg Tablet, 80 MG PO DAILY@21, #60 TAB Prov:WALLACE COBB 03/14/19 Tiotropium Barnum* (Spiriva*) 18 Mcg Cap.w.dev, 1 INH INH DAILY, #30 TAB Prov:WALLACE COBB 03/14/19 Nicotine* (Nicotine* Patch) 21 mg/day Patch, 1 PATCH TRANSDERM DAILY, #60 PATCH Prov:WALLACE COBB 03/14/19 Terbinafine Hcl* (Terbinafine Hcl*) 250 Mg Tablet, 250 MG PO BID for 5 Days, #10 TAB Prov:WALLACE COBB 03/14/19 Reported Medications Albuterol Sulfate* (Ventolin HFA*) 18 Gm Hfa.aer.ad, 2 PUFF INHALATION Q4H, #1 INHALER 03/07/19 Solifenacin* (Vesicare*) 5 Mg Tablet, 5 MG PO DAILY for 30 Days, #30 03/07/19 Metformin Hcl* (Metformin Hcl*) 1,000 Mg Tablet, 1000 MG PO BID for 30 Days, #60 03/07/19 Aspirin* (Aspirin* EC) 81 Mg Tablet.dr, 81 MG PO DAILY for 30 Days, #30 03/07/19 Amlodipine Besylate* (Amlodipine Besylate*) 10 Mg Tablet, 10 MG PO DAILY for 30 Days, #30 03/07/19 Levothyroxine Sodium* (Synthroid*) 200 Mcg Tablet, 200 MCG PO QAM for 30 Days, #30 03/07/19 Discontinued Reported Medications Rosuvastatin Calcium (Rosuvastatin Calcium) 20 Mg Tablet, 20 MG PO DAILY for 30 Days, #30 03/07/19 Salmeterol Xinaf-Fluticasone* (Advair*) 500/50 Diskus Inhaler, 1 INH INHALATION BID, #1 INHALER 03/07/19 Losartan-Hydrochlorothiazide (Losartan-HCTZ) 100-25 Mg Tab, 1 TAB PO DAILY for 30 Days, #30 03/07/19 Meloxicam* (Mobic*) 15 Mg Tablet, 15 MG PO DAILY for 30 Days, #30 03/07/19 Follow-up Plan Follow-up with physicians at [facility] Provider Colleen Ellison Time spent on discharge: > 30 minutes WALLACE COBB March 15, 2019 12:53
== END 2019-03-14 21:40 | DRG 208 ==
LOC: E/R 21:34 → TEL 23:13 → ICU 03-07 08:23 → TEL 03-11 16:25
PROVIDERS: ADMIT Family Medicine; ATTEND Internal Medicine
PROC: 0BH18EZ Insertion of Endotracheal Airway into Trachea, Via Natural or Artificial Opening Endoscopic (ICD-10-PCS; principal; 2019-03-07)
PROC: 5A1945Z Respiratory Ventilation, 24-96 Consecutive Hours (ICD-10-PCS; 2019-03-07)
PROC: 0HBRXZZ Excision of Toe Nail, External Approach (ICD-10-PCS; 2019-03-11)
PROC: 0HBRXZZ Excision of Toe Nail, External Approach (ICD-10-PCS; 2019-03-11)
PROC: 0HBRXZZ Excision of Toe Nail, External Approach (ICD-10-PCS; 2019-03-11)
PROC: 0HBRXZZ Excision of Toe Nail, External Approach (ICD-10-PCS; 2019-03-11)
PROC: 0HBRXZZ Excision of Toe Nail, External Approach (ICD-10-PCS; 2019-03-11)
PROC: 0HBRXZZ Excision of Toe Nail, External Approach (ICD-10-PCS; 2019-03-11)
PROC: 0HBRXZZ Excision of Toe Nail, External Approach (ICD-10-PCS; 2019-03-11)
PROC: 0HBRXZZ Excision of Toe Nail, External Approach (ICD-10-PCS; 2019-03-11)
PROC: 0HBRXZZ Excision of Toe Nail, External Approach (ICD-10-PCS; 2019-03-11)
PROC: 0HBRXZZ Excision of Toe Nail, External Approach (ICD-10-PCS; 2019-03-11)
DX: J44.1 Chronic obstructive pulmonary disease with (acute) exacerbation (principal); J69.0 Pneumonitis due to inhalation of food and vomit; J96.01 Acute respiratory failure with hypoxia; I21.A1 Myocardial infarction type 2; J96.22 Acute and chronic respiratory failure with hypercapnia; G92 Toxic encephalopathy; I50.33 Acute on chronic diastolic (congestive) heart failure; E78.5 Hyperlipidemia, unspecified; E03.9 Hypothyroidism, unspecified; F17.210 Nicotine dependence, cigarettes, uncomplicated; E11.65 Type 2 diabetes mellitus with hyperglycemia; I11.0 Hypertensive heart disease with heart failure; B35.1 Tinea unguium; B35.3 Tinea pedis; L60.2 Onychogryphosis; T50.905A Adverse effect of unspecified drugs, medicaments and biological substances, initial encounter; Z79.84 Long term (current) use of oral hypoglycemic drugs; Z78.1 Physical restraint status; Z91.19 Patient's noncompliance with other medical treatment and regimen
CPT/HCPCS: 31500; 36415; 36600; 71045; 76937; 80048; 80053; 82140; 82164; 82550; 82553; 82803; 82947; 82962; 83036; 83605; 83735; 84100; 84153; 84154; 84403; 84439; 84443; 84481; 84484; 85025; 85610; 85730; 86708; 86803; 87070; 87081; 87340; 89220; 92526; 92610; 93005; 93306; 94002; 94003; 94640; 94660; 94664; 94770; 96374; 96375; 97110; 97116; 97162; 97530; C1752; J0360; J0456; J0696; J1200; J1630; J1644; J1815; J1940; J2060; J2543; J2920; J2930; J7030; J7040